=== PATIENT | male | born 1935 | race Caucasian/White ===

== ENCOUNTER 2016-10-21 06:39 | Inpatient (IN) | payer MEDICARE, BC ==
[2016-10-21] MEDS ORDERED: methylPREDNISolone Sodium Succinate 125 MG/2 ML SDV IVPUSH ONE (06:52)
[2016-10-21] MEDS ORDERED: Albuterol/Ipratropium 3.0-0.5 MG/3 ML Neb Soln NEB ONE (06:52)
[2016-10-21] MEDS ORDERED: Albuterol/Ipratropium 3.0-0.5 MG/3 ML Neb Soln ONE (06:56)
--- NOTE | 2016-10-21 07:25 | EDM.PDOC ---
ED HISTORY OF PRESENT ILLNESS - General Chief Complaint: Respiratory Problem Stated Complaint: SOB Time Seen by Provider: 10/21/16 07:14 Source of Information: Reports: Patient, RN notes reviewed - History of Present Illness INITIAL COMMENTS - FREE TEXT/NARRATIVE: 81-year-old gentleman comes in with severe shortness of breath. He does have history of chronic COPD, coronary artery disease, CHF and does use home oxygen 20 474 L nasal cannula. He awakened more short of breath than usual this morning about 2 hours ago. The sitting position this did not improve and therefore asked his to bring him into the ED. Does have a chronic cough occasionally productive of yellowish colored phlegm but not much any more than usual. He has had some recent chills but no definite fever. No chest pain other than the difficulty breathing. No abdominal pain nausea vomiting or diaphoresis. Due to his difficulty breathing and previous history of CHF exacerbations his states that she did give him triple his normal Lasix this morning, 60 mg and also double his Aldactone 50 mg this morning compared to the usual 20 and 25. This was all given about an hour ago. She had previously been directed to do this via provider when he is into his situation like this of severe difficulty breathing. - Related Data Allergies/ADRs: Allergies Allergy/AdvReac Type Severity Reaction Status Date / Time morphine Allergy Rash Verified 10/21/16 06:43 Home Meds: Home Meds Ascorbic Acid [Vitamin C] 500 mg PO DAILY 08/16/16 [History] Aspirin 81 mg PO BEDTIME 08/16/16 [History] Diflucan Oral 250 mcg PO DAILY PRN 08/16/16 [History] Digoxin [Lanoxin] 125 mcg PO DAILY 08/16/16 [History] Diltiazem [Cardizem CD] 120 mg PO BID 08/16/16 [History] Docusate Sodium 100 mg PO DAILY 08/16/16 [History] Flunisolide [Aerospan] 2 spray NASBOTH DAILY 08/16/16 [History] Fluticasone/Salmeterol [Advair 250-50 Diskus] 1 puff INH BID 08/16/16 [History] Folic Acid 0.8 mg PO DAILY 08/16/16 [History] Furosemide [Lasix] 20 mg PO BID 08/16/16 [History] Multivitamin [Multivitamins] 1 tab PO DAILY 08/16/16 [History] Nitroglycerin [Nitrostat] 0.4 mg SL Q5M PRN 08/16/16 [History] Omeprazole 20 mg PO DAILY 08/16/16 [History] Spironolactone [Aldactone] 25 mg PO DAILY 08/16/16 [History] guaiFENesin [Mucinex] 600 mg PO DAILY PRN 08/16/16 [History] predniSONE [Prednisone] 5 mg PO DAILY 08/16/16 [History] Albuterol/Ipratropium [DuoNeb 3.0-0.5 MG/3 ML] 3 ml NEB QIDRT #40 neb 09/03/16 [ Rx] Past Medical History HEENT History: Reports: Cataract Other HEENT History: 2015. Cardiovascular History: Reports: Afib, Hypertension, CT Other Cardiovascular History: COPD Respiratory History: Reports: COPD, Pneumonia, recurrent, SOB Other Respiratory History: Wears home O2 from 3L- 5L Gastrointestinal History: Reports: None, Other (see below) Other Gastrointestinal History: constipation at times and takes prune juice for this, history of abdominal anyerysm Genitourinary History: Reports: Retention, urinary Musculoskeletal History: Reports: Arthritis, Other (see below) Other Musculoskeletal History: started pt last week for left shoulder soreness. 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 4 stents and a carotid artery Respiratory Surgical History: Reports: None Male Surgical History: Reports: None Social & Family History - Family History HEENT: Reports: Glaucoma Cardiac: Reports: Hypertension, Other (see below) Other Cardiac Family History: strokes and heart attacks GI: Reports: Diverticulitis OBGYN: Reports: None Musculoskeletal: Reports: Arthritis Neurological: Reports: CVA Psychiatric: Reports: Depression Endocrine/Metabolic: Reports: Diabetes, type II Oncologic: Reports: Breast Other Oncologic Family History: mother - Tobacco Use Smoking Status *Q: Never Smoker Years of Tobacco use: 60 Packs/Tins Daily: 2 Used Tobacco, but Quit: Yes Month Tobacco Last Used: 60 years ago Second Hand Smoke Exposure: No - Caffeine Use Caffeine Use: Reports: Coffee Caffeine Use Comment: "cup or two of coffee a day" - Alcohol Use Days Per Week of Alcohol Use: 1 Number of Drinks Per Day: 3 Total Drinks Per Week: 3 - Recreational Drug Use Recreational Drug Use: No - Living Situation & Occupation Living situation: Reports: , with spouse 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 Denies: fever, diaphoresis HEENT: Denies: Rhinitis, Sinus problem, Throat pain, Throat swelling Respiratory: Reports: shortness of breath, wheezing, cough, sputum. Denies: pleuritic chest pain Cardiovascular: Reports: Lightheadedness. Denies: Chest pain Endocrine: Reports: fatigue GI/Abdominal: Denies: Abdominal pain, Nausea, Vomiting Musculoskeletal: Denies: shoulder pain, arm pain, leg pain Skin: Reports: no symptoms Neurological: Reports: dizziness, weakness (generalized). Denies: numbness, tingling ED EXAM, GENERAL - Physical Exam Exam: See Below General Appearance: alert, moderate distress Eye Exam: bilateral eye: PERRL Nose: normal inspection Throat/Mouth: Normal inspection, Normal oropharynx Head: atraumatic. No: facial swelling Neck: supple, full range of motion, other (no JVD) Respiratory/Chest: respiratory distress (moderate), rales (mild bilateral bases) Cardiovascular: irregularly irregular GI/Abdominal: soft, non tender Back Exam: normal inspection. No: CVA tenderness (L), CVA tenderness (R) Extremities: normal inspection. No: pedal edema, leg pain, redness Neurological: alert, oriented, no motor/sensory deficits Skin Exam: Warm, Dry. No: Rash EKG INTERPRETATION EKG Date: 10/21/16 Rhythm: a-fib QRS: normal ST-T: normal Course - Vital Signs Last Recorded V/S: Last Vital Signs Temp 97.3 F 10/21/16 06:44 Pulse 121 H 10/21/16 06:44 Resp 28 H 10/21/16 06:44 BP 135/77 10/21/16 06:44 Pulse Ox 90 L 10/21/16 07:46 - Orders/Labs/Meds Orders: Active Orders 24 hr Category Date Time Status Admission Status [Patient Status] [ADT] Routine ADT 10/21/16 08:39 Active EKG Documentation Completion [RC] STAT Care 10/21/16 06:53 Active RT Aerosol Therapy [RC] ASDIRECTED Care 10/21/16 06:52 Active RT Aerosol Therapy [RC] ASDIRECTED Care 10/21/16 07:26 Active Chest 1V Frontal [CR] Stat Exams 10/21/16 06:53 Taken CULTURE BLOOD [BC] Stat Lab 10/21/16 09:01 Received Levofloxacin/Dextrose 5%-Water [Levaquin in D5W 750 MG/ Med 10/21/16 08:28 Active 150 ML] 750 mg Premix Bag 1 bag IV ONETIME Medication Orders Levofloxacin/Dextrose 750 mg/ (Premix) 150 mls @ 100 mls/hr IV ONETIME ONE Stop: 10/21/16 09:57 Labs: Laboratory Tests 10/21/16 10/21/16 10/21/16 Range/Units 06:52 06:52 06:52 WBC 13.82 H (4.23-9.07) K/mm3 RBC 4.65 (4.63-6.08) M/mm3 Hgb 13.4 L (13.7-17.5) gm/L Hct 42.0 (40.1-51.0) % MCV 90.3 (79.0-92.2) fl MCH 28.8 (25.7-32.2) pg MCHC 31.9 L (32.2-35.5) g/dl RDW Std Deviation 47.9 H (35.1-43.9) fL Plt Count 310 (163-337) K/mm3 MPV 9.0 L (9.4-12.3) fl Neutrophils % (Manual) 74 H (40-60) % Band Neutrophils % 0 (0-10) % Lymphocytes % (Manual) 24 (20-40) % Atypical Lymphs % 0 % Monocytes % (Manual) 1 L (2-10) % Eosinophils % (Manual) 1 (0.8-7.0) % Basophils % (Manual) 0 L (0.2-1.2) Platelet Estimate Adequate RBC Morph Comment Normal PT 10.2 (8.0-13.0) SECONDS INR 0.96 APTT 26 (22-36) SECONDS Puncture Site ABG pH (7.35-7.45) ABG pCO2 (35.0-45.0) mmHg ABG pO2 (80.0-100.0) mmHg ABG HCO3 (22.0-26.0) meq/L ABG O2 Saturation (96.0-97.0) % ABG Base Excess (-2-2.0) Jamey Test A-a Gradient mmHg O2 Delivery Device Oxygen Flow Rate FiO2 (21.00-100.00) % Sodium 142 (136-145) mEq/L Potassium 3.9 (3.5-5.1) mEq/L Chloride 103 (98-107) mEq/L Carbon Dioxide 27 (21-32) mEq/L Anion Gap 15.9 H (5-15) BUN 19 H (7-18) mg/dL Creatinine 1.4 H (0.7-1.3) mg/dL Est Cr Clr Drug Dosing 35.68 mL/min Estimated GFR (MDRD) 49 (>60) mL/min BUN/Creatinine Ratio 13.6 L (14-18) Glucose 141 H (83-115) mg/dL Calcium 9.4 (8.5-10.1) mg/dL Total Bilirubin 0.6 (0.2-1.0) mg/dL AST 27 (15-37) U/L ALT 23 (16-63) U/L Alkaline Phosphatase 74 (46-116) U/L Troponin I 0.050 (0.00-0.056) ng/mL B-Natriuretic Peptide (0-100) pg/mL Total Protein 7.4 (6.4-8.2) g/dl Albumin 3.1 L (3.4-5.0) g/dl Globulin 4.3 gm/dL Albumin/Globulin Ratio 0.7 L (1-2) Digoxin 0.9 (0.9-2.0) ng/mL 10/21/16 10/21/16 Range/Units 06:52 06:53 WBC (4.23-9.07) K/mm3 RBC (4.63-6.08) M/mm3 Hgb (13.7-17.5) gm/L Hct (40.1-51.0) % MCV (79.0-92.2) fl MCH (25.7-32.2) pg MCHC (32.2-35.5) g/dl RDW Std Deviation (35.1-43.9) fL Plt Count (163-337) K/mm3 MPV (9.4-12.3) fl Neutrophils % (Manual) (40-60) % Band Neutrophils % (0-10) % Lymphocytes % (Manual) (20-40) % Atypical Lymphs % % Monocytes % (Manual) (2-10) % Eosinophils % (Manual) (0.8-7.0) % Basophils % (Manual) (0.2-1.2) Platelet Estimate RBC Morph Comment PT (8.0-13.0) SECONDS INR APTT (22-36) SECONDS Puncture Site Rt radial ABG pH 7.44 (7.35-7.45) ABG pCO2 38.6 (35.0-45.0) mmHg ABG pO2 50.0 L (80.0-100.0) mmHg ABG HCO3 25.7 (22.0-26.0) meq/L ABG O2 Saturation 86.9 L (96.0-97.0) % ABG Base Excess 2.0 (-2-2.0) Jamey Test Positive A-a Gradient 198 mmHg O2 Delivery Device Nasal cannula Oxygen Flow Rate 6.0 FiO2 44.00 (21.00-100.00) % Sodium (136-145) mEq/L Potassium (3.5-5.1) mEq/L Chloride (98-107) mEq/L Carbon Dioxide (21-32) mEq/L Anion Gap (5-15) BUN (7-18) mg/dL Creatinine (0.7-1.3) mg/dL Est Cr Clr Drug Dosing mL/min Estimated GFR (MDRD) (>60) mL/min BUN/Creatinine Ratio (14-18) Glucose (83-115) mg/dL Calcium (8.5-10.1) mg/dL Total Bilirubin (0.2-1.0) mg/dL AST (15-37) U/L ALT (16-63) U/L Alkaline Phosphatase (46-116) U/L Troponin I (0.00-0.056) ng/mL B-Natriuretic Peptide 450 H (0-100) pg/mL Total Protein (6.4-8.2) g/dl Albumin (3.4-5.0) g/dl Globulin gm/dL Albumin/Globulin Ratio (1-2) Digoxin (0.9-2.0) ng/mL Meds: Medications Generic Name Dose Route Start Last Admin Trade Name Freq PRN Reason Stop Dose Admin Levofloxacin/Dextrose 750 mg/ 150 mls @ 100 mls/hr 10/21/16 08:28 Premix IV 10/21/16 09:57 ONETIME ONE Discontinued Medications Generic Name Dose Route Start Last Admin Trade Name Freq PRN Reason Stop Dose Admin Albuterol 2.5 mg 10/21/16 07:26 10/21/16 07:46 Proventil Neb Soln NEB 10/21/16 07:27 2.5 mg ONETIME ONE Administration Albuterol/Ipratropium 3 ml 10/21/16 06:52 10/21/16 06:59 Duoneb 3.0-0.5 Mg/3 Ml NEB 10/21/16 06:53 3 ml ONETIME ONE Administration Albuterol/Ipratropium Confirm 10/21/16 06:56 10/21/16 07:00 Duoneb 3.0-0.5 Mg/3 Ml Administered 10/21/16 06:57 Not Given Dose 3 ml .ROUTE .STK-MED ONE Methylprednisolone Sodium Succinate 125 mg 10/21/16 06:52 10/21/16 06:57 Solu-Medrol IVPUSH 10/21/16 06:53 125 mg ONETIME ONE Administration - Radiology Interpretation Free Text/Narrative:: 08:10. patient was briefly seen by Dr. Loco staying right at the end of his shift prior to my arrival. at the time that I see him at 07:00 he is on 15 L nonrebreather. Sats are running about 92-93%. We turned that down to 6 L nasal cannula. ABGs partially show that he is not retaining. However PO2 is only 50 at the 6 L NC. He is moving air better from arrival, but still tachypneic sitting head and chest elevated. Sats are running anywhere from 85 to about 89 with O2 still at 6 L nasal cannula. on his chest x-ray there are chronic interstitial changes. Chest x-ray to me looked slightly worse from prior chest x -ray, he may have a slight early infiltrate left base. I will see how radiology reads that out. I am going to get a blood culture x1 even though he is afebrile. For now admitting diagnosis will be exacerbation COPD, Levaquin has been ordered 750 mg IV. Departure - Departure Time of Disposition: 08:35 Disposition: Admitted As Inpatient 68 Condition: serious Clinical Impression: COPD exacerbation Forms: ED Department Discharge ED Communication - Discussed Case With (1) Discussed Case With (1): Other (Dr Newell, decision to admit at about 08:35) - My Orders Last 24 Hours: My Active Orders 10/21/16 07:26 RT Aerosol Therapy [RC] ASDIRECTED 10/21/16 08:28 Levofloxacin/Dextrose 5%-Water [Levaquin in D5W 750 MG/150 ML] 750 mg Premix Bag 1 bag IV ONETIME 10/21/16 08:39 Admission Status [Patient Status] [ADT] Routine 10/21/16 09:01 CULTURE BLOOD [BC] Stat - Assessment/Plan Last 24 Hours: My Active Orders 10/21/16 07:26 RT Aerosol Therapy [RC] ASDIRECTED 10/21/16 08:28 Levofloxacin/Dextrose 5%-Water [Levaquin in D5W 750 MG/150 ML] 750 mg Premix Bag 1 bag IV ONETIME 10/21/16 08:39 Admission Status [Patient Status] [ADT] Routine 10/21/16 09:01 CULTURE BLOOD [BC] Stat
[2016-10-21] MEDS ORDERED: Albuterol 0.083% 2.5 MG/3 ML Neb Soln NEB ONE (07:26)
[2016-10-21] MEDS ORDERED: Levofloxacin/Dextrose 5%-Water 750 MG in Premix Bag 1 BAG IV ONE (08:28)
--- NOTE | 2016-10-21 10:01 | CR ---
Chest: Portable view of the chest was obtained. Comparison: Previous chest x-ray of 10/02/16. Diffuse interstitial changes are seen throughout both lungs. Findings appear slightly more prominent than on prior exam. Heart is enlarged. Tortuous thoracic aorta is seen. Sternotomy is noted. Chronic rotator cuff tear noted within the left shoulder. Impression: 1. Increasing interstitial change from prior study. This may represent increased pulmonary vascular congestion superimposed upon fibrosis as well as infectious bronchitis superimposed upon fibrosis. 2. Other portions of the chest are stable as described above. Diagnostic code #3
[2016-10-21] MEDS ORDERED: Ondansetron 4 MG Tab.DIS PO PRN (14:46)
[2016-10-21] MEDS ORDERED: Ondansetron 4 MG/2 ML SDV IV PRN (14:46)
[2016-10-21] MEDS ORDERED: Acetaminophen 325 MG Tab PO PRN (14:46)
[2016-10-21] MEDS ORDERED: Polyethylene Glycol 3350 Powder 17 GM Packet PO PRN (14:55)
[2016-10-21] MEDS ORDERED: Albuterol 0.083% 2.5 MG/3 ML Neb Soln NEB PRN (14:55)
[2016-10-21] MEDS ORDERED: Sodium Chloride 0.9% 10 ML Syringe FLUSH PRN (14:55)
[2016-10-21] MEDS ORDERED: Bisacodyl 5 MG Tab PO PRN (14:55)
[2016-10-21] MEDS ORDERED: Temazepam 15 MG Cap PO PRN (14:55)
[2016-10-21] MEDS ORDERED: Docusate Sodium 100 MG Cap PO PRN (14:55)
[2016-10-21] MEDS ORDERED: DIFLUCAN PO PRN (15:03)
--- NOTE | 2016-10-21 15:10 | PCM.HP ---
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 He does have PMH hx of steroid and oxygen dependent COPD, CHF, CAD. He was last admitted in August 2016 for acute COPD exacerbation. He reports that the past 5-7 days he has had "a head cold" and worsening fatigue. Appetite is good, he has had mild headaches off an on due to congestion. He is coughing, occasional productive sputum, clear to yellow in color. He reports oxygen saturation at home at lowest was 59% on his home pulse ox machine, his then brought him into ER. He tried taking an extra dose of lasix at home when his SOB awoke him in the electric razor mechanic hours, around 0430. SOB progressed to the point that he was essentially in respiratory distress on arrival to ED. Onset of Symptoms: Reports: sudden Symptom Onset Time: 04:30 (awoke from sleep with acute onset of SOB) Location: Reports: chest Associated Symptoms: Reports: cough, cough w sputum, headaches, malaise, shortness of breath, weakness - Related Data Allergies/Adverse Reactions: Allergies Allergy/AdvReac Type Severity Reaction Status Date / Time morphine Allergy Rash Verified 10/21/16 06:43 Home Medications: Home Meds Ascorbic Acid [Vitamin C] 500 mg PO DAILY 08/16/16 [History] Aspirin 81 mg PO BEDTIME 08/16/16 [History] Diflucan Oral 250 mcg PO DAILY PRN 08/16/16 [History] Digoxin [Lanoxin] 125 mcg PO DAILY 08/16/16 [History] Diltiazem [Cardizem CD] 120 mg PO BID 08/16/16 [History] Flunisolide [Aerospan] 2 spray NASBOTH DAILY 08/16/16 [History] Fluticasone/Salmeterol [Advair 250-50 Diskus] 1 puff INH BID 08/16/16 [History] Folic Acid 0.8 mg PO DAILY 08/16/16 [History] Furosemide [Lasix] 20 mg PO BID 08/16/16 [History] Multivitamin [Multivitamins] 1 tab PO DAILY 08/16/16 [History] Nitroglycerin [Nitrostat] 0.4 mg SL Q5M PRN 08/16/16 [History] Omeprazole 20 mg PO DAILY 08/16/16 [History] Spironolactone [Aldactone] 25 mg PO DAILY 08/16/16 [History] guaiFENesin [Mucinex] 600 mg PO DAILY PRN 08/16/16 [History] predniSONE [Prednisone] 5 mg PO DAILY 08/16/16 [History] Albuterol/Ipratropium [DuoNeb 3.0-0.5 MG/3 ML] 3 ml NEB QIDRT #40 neb 09/03/16 [ Rx] Docusate Sodium [Colace] 100 mg PO BID #60 cap 10/26/16 [Rx] Ferrous Sulfate 325 mg PO WITHBREAKFAST #30 tablet 10/26/16 [Rx] Prednisone [IJD: Prednisone] 10 mg PO DAILY #30 tab 10/26/16 [Rx] Past Medical History HEENT History: Reports: Cataract Other HEENT History: 2015. Cardiovascular History: Reports: Afib, Arrhythmia, Bypass, CAD, Heart Failure, Hypertension, MO, SOB on exertion Other Cardiovascular History: COPD Respiratory History: Reports: COPD, Pneumonia, recurrent, Pulmonary fibrosis, SOB Other Respiratory History: Wears home O2 from 3L- 5L Gastrointestinal History: Reports: None, Other (see below) Other Gastrointestinal History: constipation at times and takes prune juice for this, history of abdominal anyerysm Genitourinary History: Reports: Retention, urinary Musculoskeletal History: Reports: Arthritis, Back pain, chronic, Other (see below) Other Musculoskeletal History: started pt last week for left shoulder soreness. 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 4 stents and a carotid artery Respiratory Surgical History: Reports: None Male Surgical History: Reports: None Social & Family History - Family History HEENT: Reports: Glaucoma Cardiac: Reports: Hypertension, Other (see below) Other Cardiac Family History: strokes and heart attacks GI: Reports: Diverticulitis OBGYN: Reports: None Musculoskeletal: Reports: Arthritis Neurological: Reports: CVA Psychiatric: Reports: Depression Endocrine/Metabolic: Reports: Diabetes, type II Oncologic: Reports: Breast Other Oncologic Family History: mother - Tobacco Use Smoking Status *Q: Former Smoker Years of Tobacco use: 60 Packs/Tins Daily: 2 Used Tobacco, but Quit: Yes Month Tobacco Last Used: 60 years ago Second Hand Smoke Exposure: No - Caffeine Use Caffeine Use: Reports: Coffee Caffeine Use Comment: "cup or two of coffee a day" - Alcohol Use Days Per Week of Alcohol Use: 1 Number of Drinks Per Day: 3 Total Drinks Per Week: 3 - Recreational Drug Use Recreational Drug Use: No - Living Situation & Occupation Living situation: Reports: , with spouse 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 Denies: hemoptysis Cardiovascular: Reports: chest pain, palpitations, dyspnea on exertion, lightheadedness Gastrointestinal: Reports: No symptoms Genitourinary: Reports: no symptoms Musculoskeletal: Reports: no symptoms Skin: Reports: no symptoms Psychiatric: Reports: no symptoms Neurological: Reports: no symptoms Exam - Exam Exam: See Below - Vital Signs Vital Signs: Last Vital Signs Temp 99.0 F 10/21/16 09:52 Pulse 121 H 10/21/16 06:44 Resp 20 10/21/16 09:52 BP 135/77 10/21/16 06:44 Pulse Ox 92 L 10/21/16 10:39 Weight: 59.012 kg - Exam Quality Assessment: supplemental oxygen General: alert, oriented, cooperative, mild distress HEENT: Conjunctiva clear, EACs clear, EOMI, Hearing intact, Mucosa moist & pink , Pupils equal, Pupils reactive Neck: supple, trachea midline Lungs: Normal respiratory effort, Decreased breath sounds (throughout), Rhonchi (throughout), Wheezing (throughout) Cardiovascular: regular rate, regular rhythm, other (distant heart tones) Abdomen: normal bowel sounds, soft. No: organomegaly, distention, guarding, rigidity, rebound, tenderness (Male) Exam: Deferred Rectal (Males) Exam: Deferred Back Exam: normal inspection Extremities: normal inspection. No: clubbing, calf tenderness, edema Peripheral Pulses: 1+: dorsalis pedis (L), dorsalis pedis (R) Skin: warm, dry, intact Neurological: cranial nerves intact, reflexes equal bilateral Neuro Extensive - Mental Status: alert, oriented x3, normal mood/affect, normal cognition, memory intact Psychiatric: alert, normal affect, normal mood - Patient Data Result Diagrams: 10/22/16 04:46 10/22/16 04:46 *Q Meaningful Use (ADM) - VTE *Q VTE Criteria *Q: - Stroke *Q Stroke Criteria *Q: - AMI *Q AMI Criteria *Q: - Problem List (1) Acute respiratory failure with hypoxia SNOMED Code(s): 77279304, 718330313 ICD Code: J96.01 - ACUTE RESPIRATORY FAILURE WITH HYPOXIA Status: Acute Priority: High (2) COPD exacerbation SNOMED Code(s): 529028918, 152823303 ICD Code: J44.1 - CHRONIC OBSTRUCTIVE PULMONARY DISEASE W (ACUTE) EXACERBATION Status: Acute Priority: High (3) Mycoplasma infection SNOMED Code(s): 705199239 ICD Code: A49.3 - MYCOPLASMA INFECTION, UNSPECIFIED SITE Status: Acute Priority: High (4) HTN (hypertension) SNOMED Code(s): 84077429 ICD Code: I10 - ESSENTIAL (PRIMARY) HYPERTENSION Status: Chronic Priority : High Qualifiers: Hypertension type: essential hypertension Qualified Code(s): I10 - Essential (primary) hypertension Problem List Initiated/Reviewed/Updated: Yes Orders Last 24hrs: Active Orders 24 hr Category Date Time Status Patient Status [ADT] Routine ADT 10/21/16 14:36 Ordered Ambulate [RC] DAILY Care 10/21/16 14:46 Ordered Cardiac Monitoring [RC] CONTINUOUS Care 10/21/16 14:49 Ordered Height and Weight [RC] DAILY Care 10/21/16 14:46 Ordered Intake and Output [RC] QSHIFT Care 10/21/16 14:49 Ordered May Shower [RC] ASDIRECTED Care 10/21/16 14:46 Ordered Oxygen Therapy [RC] PRN Care 10/21/16 14:36 Ordered RT Aerosol Therapy [RC] ASDIRECTED Care 10/21/16 14:58 Ordered Up With Assistance [RC] ASDIRECTED Care 10/21/16 14:46 Ordered VTE/DVT Education [RC] PER UNIT ROUTINE Care 10/21/16 14:36 Ordered Vital Signs [RC] Q4H Care 10/21/16 14:36 Ordered Consult to Case Management [CONS] Routine Cons 10/21/16 15:00 Ordered Consult to Investigator Operator [CONS] Routine Cons 10/21/16 15:00 Ordered OT Evaluation and Treatment [CONS] Routine Cons 10/21/16 15:00 Ordered PT Evaluation and Treatment [CONS] Routine Cons 10/21/16 15:00 Ordered 2 Gram Sodium Diet [DIET] Diet 10/21/16 Lunch Ordered BASIC METABOLIC PANEL,BMP [CHEM] DAILY Lab 10/22/16 05:00 Ordered BASIC METABOLIC PANEL,BMP [CHEM] DAILY Lab 10/23/16 05:00 Ordered BASIC METABOLIC PANEL,BMP [CHEM] DAILY Lab 10/24/16 05:00 Ordered BASIC METABOLIC PANEL,BMP [CHEM] DAILY Lab 10/25/16 05:00 Ordered BASIC METABOLIC PANEL,BMP [CHEM] DAILY Lab 10/26/16 05:00 Ordered C-REACTIVE PROTEIN [CHEM] DAILY Lab 10/22/16 05:00 Ordered C-REACTIVE PROTEIN [CHEM] DAILY Lab 10/23/16 05:00 Ordered C-REACTIVE PROTEIN [CHEM] DAILY Lab 10/24/16 05:00 Ordered C-REACTIVE PROTEIN [CHEM] DAILY Lab 10/25/16 05:00 Ordered CBC WITH AUTO DIFF [HEME] DAILY Lab 10/22/16 05:00 Ordered CBC WITH AUTO DIFF [HEME] DAILY Lab 10/23/16 05:00 Ordered CBC WITH AUTO DIFF [HEME] DAILY Lab 10/24/16 05:00 Ordered CBC WITH AUTO DIFF [HEME] DAILY Lab 10/25/16 05:00 Ordered MAGNESIUM [CHEM] DAILY Lab 10/22/16 05:00 Ordered MAGNESIUM [CHEM] DAILY Lab 10/23/16 05:00 Ordered MAGNESIUM [CHEM] DAILY Lab 10/24/16 05:00 Ordered MAGNESIUM [CHEM] DAILY Lab 10/25/16 05:00 Ordered Acetaminophen [Tylenol] Med 10/21/16 14:46 Ordered 650 mg PO Q4H PRN Albuterol [Proventil Neb Soln] Med 10/21/16 14:55 Ordered 2.5 mg NEB Q2H PRN Albuterol/Ipratropium [DuoNeb 3.0-0.5 MG/3 ML] Med 10/21/16 15:00 Ordered 3 ml NEB Q4H Ascorbic Acid [Vitamin C] Med 10/22/16 09:00 Ordered 500 mg PO DAILY Aspirin Med 10/21/16 21:00 Ordered 81 mg PO BEDTIME Azithromycin [Zithromax] 500 mg Med 10/21/16 15:15 Ordered Sodium Chloride 0.9% [Normal Saline] 250 ml IV Q24H Bisacodyl [Dulcolax] Med 10/21/16 14:55 Ordered 5 mg PO DAILY PRN Diflucan Oral Med 10/21/16 15:03 Ordered 250 mcg PO DAILY PRN Digoxin [Lanoxin] Med 10/22/16 09:00 Ordered 125 mcg PO DAILY Diltiazem [Cardizem CD] Med 10/21/16 21:00 Ordered 120 mg PO BID Docusate Sodium [Colace] Med 10/21/16 14:55 Ordered 100 mg PO BID PRN Docusate Sodium [Colace] Med 10/22/16 09:00 Ordered 100 mg PO DAILY Flunisolide [Aerospan] Med 10/22/16 09:00 Ordered 2 spray NASBOTH DAILY Flunisolide [Nasalide Nasal [place]] Med 10/21/16 21:00 Ordered 2 ml NASBOTH BID Fluticasone/Salmeterol [Advair Diskus 250-50] Med 10/21/16 21:00 Ordered 1 puff INH BID Folic Acid [Folic Acid] Med 10/22/16 09:00 Ordered 0.8 mg PO DAILY Furosemide [Lasix] Med 10/21/16 21:00 Ordered 20 mg PO BID Multivitamin [Multivitamins] Med 10/22/16 09:00 Ordered 1 tab PO DAILY Omeprazole Med 10/22/16 09:00 Ordered 20 mg PO DAILY Ondansetron [Zofran ODT] Med 10/21/16 14:46 Ordered 4 mg PO Q4H PRN Ondansetron [Zofran] Med 10/21/16 14:46 Ordered 4 mg IV Q4H PRN Polyethylene Glycol 3350 [MiraLAX] Med 10/21/16 14:55 Ordered 17 gm PO DAILY PRN Sodium Chloride 0.9% [Saline Flush] Med 10/21/16 14:55 Ordered 10 ml FLUSH ASDIRECTED PRN Spironolactone [Aldactone] Med 10/22/16 09:00 Ordered 25 mg PO DAILY Temazepam [Restoril] Med 10/21/16 14:55 Ordered 15 mg PO BEDTIME PRN guaiFENesin [Mucinex] Med 10/21/16 21:00 Ordered 600 mg PO TID methylPREDNISolone Sod Succ [Solu-MEDROL] Med 10/21/16 15:15 Ordered 125 mg IV Q12H Saline Lock Insert [OM.PC] Routine Oth 10/21/16 14:46 Ordered Resuscitation Status Routine Resus Stat 10/21/16 14:36 Ordered Medication Orders Acetaminophen (Tylenol) 650 mg PO Q4H PRN PRN Reason: Pain (Mild 1-3)/fever Albuterol (Proventil Neb Soln) 2.5 mg NEB Q2H PRN PRN Reason: Shortness Of Breath/wheezing Albuterol/Ipratropium (Duoneb 3.0-0.5 Mg/3 Ml) 3 ml NEB Q4H [facility] Aspirin (Aspirin) 81 mg PO BEDTIME [facility] Bisacodyl (Dulcolax) 5 mg PO DAILY PRN PRN Reason: Constipation Digoxin (Lanoxin) 125 mcg PO DAILY [facility] Diltiazem HCl (Cardizem Cd) 120 mg PO BID [facility] Docusate Sodium (Colace) 100 mg PO BID PRN PRN Reason: Constipation Docusate Sodium (Colace) 100 mg PO DAILY [facility] Flunisolide (Nasalide Nasal [place]) 2 ml NASBOTH BID [facility] Furosemide (Lasix) 20 mg PO BID [facility] Guaifenesin (Mucinex) 600 mg PO TID [facility] Azithromycin 500 mg/ Sodium (Chloride) 250 mls @ 250 mls/hr IV Q24H [facility] Non-Formulary Medication (Ascorbic Acid [Vitamin C]) 500 mg PO DAILY [facility] Non-Formulary Medication (Diflucan Oral) 250 mcg PO DAILY PRN PRN Reason: yeast Non-Formulary Medication (Flunisolide [Aerospan]) 2 spray NASBOTH DAILY [facility] Non-Formulary Medication (Folic Acid [Folic Acid]) 0.8 mg PO DAILY [facility] Non-Formulary Medication (Multivitamin [Multivitamins]) 1 tab PO DAILY [facility] Non-Formulary Medication (Omeprazole) 20 mg PO DAILY [facility] Ondansetron HCl (Zofran Odt) 4 mg PO Q4H PRN PRN Reason: nausea, able to take PO Ondansetron HCl (Zofran) 4 mg IV Q4H PRN PRN Reason: Nausea/Vomiting Polyethylene Glycol (Miralax) 17 gm PO DAILY PRN PRN Reason: Constipation Fluticasone/Salmeterol (Advair Diskus 250-50) 1 puff INH BID [facility] Sodium Chloride (Saline Flush) 10 ml FLUSH ASDIRECTED PRN PRN Reason: Keep Vein Open Spironolactone (Aldactone) 25 mg PO DAILY [facility] Temazepam (Restoril) 15 mg PO BEDTIME PRN PRN Reason: Sleep Assessment/Plan Comment:: Acute hypoxic respiratory failure -Supplemental oxygen -IV solumedrol -Nebs, RT, aggressive pulmonary toilet -CXR in ED with bronchitis changes; no acute pneumonia at this time. COPD exacerbation -As above -Chronic steroid and oxygen dependent -Cont usual home meds -Zithromax IV for antiinflammatory effect - Mycoplasma and influenza screening Chronic: HTN- cont home meds Hx of CHF and afib- cont home meds- ASA/BB/diuretic/CCB Other: GI Prophylax DVT prophylax PT/OT Code status: DNR/DNI <Olinda Cazares - Last Filed: 10/27/16 20:15> H&P History of Present Illness - General Admit Problem/Dx: Admission Diagnosis/Problem Admission Diagnosis/Problem COPD, Severe chronic obstructive pulmonary disease Exam - Vital Signs Vital Signs: Last Vital Signs Temp 36.6 C 10/26/16 09:56 Pulse 95 10/26/16 11:11 Resp 19 10/26/16 09:56 BP 127/65 10/26/16 09:56 Pulse Ox 94 L 10/26/16 11:11 - Patient Data Lab Results last 24 hrs: Laboratory Results - last 24 hr 10/22/16 Range/Units 10:10 Packed Cell Volume 32.8 RBC Folic Acid >1890 H (499-1504) ng/mL Hematocrit 32.8 % Result Diagrams: 10/26/16 06:16 10/26/16 06:16 Julian Results last 24 hrs: Microbiology 10/21/16 09:01 Aerobic Blood Culture - Preliminary Blood NO GROWTH AFTER 6 DAYS Anaerobic Blood Culture - Preliminary NO GROWTH AFTER 6 DAYS *Q Meaningful Use (ADM) - VTE *Q VTE Criteria *Q: - Stroke *Q Stroke Criteria *Q: - AMI *Q AMI Criteria *Q: Assessment/Plan Comment:: COPD exacerbation, screening for underlying causes as above.
[2016-10-21] MEDS: Albuterol/Ipratropium 3.0-0.5 MG/3 ML Neb Soln NEB SCH ×3 (15:36→23:29)
[2016-10-21] MEDS: Azithromycin 500 MG in Sodium Chloride 0.9% 250 ML IV SCH (15:49)
[2016-10-21] MEDS: methylPREDNISolone Sodium Succinate 125 MG/2 ML SDV IV SCH (15:50)
[2016-10-21] MEDS: guaiFENesin 600 MG Tab.ER PO SCH (20:47)
[2016-10-21] MEDS: Diltiazem 120 MG Cap.CD PO SCH (20:47)
[2016-10-21] MEDS: Aspirin 81 MG Tab.Chew PO SCH (20:47)
[2016-10-21] MEDS: Furosemide 20 MG Tab PO SCH (20:47)
[2016-10-21] MEDS: Formoterol/Mometasone 200-5 MCG 8.8 GM Inhaler IH SCH (21:00)
[2016-10-22] MEDS: Albuterol/Ipratropium 3.0-0.5 MG/3 ML Neb Soln NEB SCH ×3 (03:25→10:57)
[2016-10-22] MEDS: methylPREDNISolone Sodium Succinate 125 MG/2 ML SDV IV SCH ×2 (03:35→15:30)
[2016-10-22] MEDS: Spironolactone 25 MG Tab PO SCH (08:46)
[2016-10-22] MEDS: Furosemide 20 MG Tab PO SCH ×2 (08:47→21:16)
[2016-10-22] MEDS: Diltiazem 120 MG Cap.CD PO SCH ×2 (08:47→21:16)
[2016-10-22] MEDS: Folic Acid 1 MG Tab PO SCH (08:48)
[2016-10-22] MEDS: Multivitamins,Therapeutic Tab PO SCH (08:48)
[2016-10-22] MEDS: Pantoprazole 40 MG Tab.CR PO SCH (08:48)
[2016-10-22] MEDS: guaiFENesin 600 MG Tab.ER PO SCH ×3 (08:48→21:16)
[2016-10-22] MEDS: Docusate Sodium 100 MG Cap PO SCH (08:48)
[2016-10-22] MEDS: Ascorbic Acid 500 MG Tab PO SCH (08:48)
[2016-10-22] MEDS: Formoterol/Mometasone 200-5 MCG 8.8 GM Inhaler IH SCH ×2 (08:52→21:02)
[2016-10-22] MEDS ORDERED: FLUNISOLIDE NASBOTH SCH (09:00)
[2016-10-22] MEDS ORDERED: Metoprolol Tartrate 5 MG/5 ML SDV IVPUSH PRN (10:28)
[2016-10-22] MEDS ORDERED: Metoprolol Tartrate 5 MG/5 ML SDV ONE (10:32)
[2016-10-22] MEDS: Digoxin 250 MCG Tab PO SCH (12:12)
--- NOTE | 2016-10-22 13:50 | PCM.PN ---
- General Info Date of Service: 10/22/16 Admission Dx/Problem (Free Text): Admission Diagnosis/Problem Admission Diagnosis/Problem COPD, Severe chronic obstructive pulmonary disease Moshe is seen this morning. Resting comfortably. states feels more SOB again today than yesterday afternoon. He continues to cough, more SOB with activity. Slept "OK" last night. Good appetite, no n/v/d. Functional Status: Reports: pain controlled, tolerating diet, ambulating, urinating. Denies: new symptoms - Review of Systems General: Reports: weakness, fatigue HEENT: Reports: no symptoms Pulmonary: Reports: shortness of breath, cough, sputum, wheezing Cardiovascular: Reports: no symptoms Gastrointestinal: Reports: No symptoms Genitourinary: Reports: no symptoms Musculoskeletal: Reports: no symptoms Skin: Reports: no symptoms Neurological: Reports: no symptoms Psychiatric: Reports: no symptoms - Patient Data Vitals - most recent: Last Vital Signs Temp 98.2 F 10/22/16 12:14 Pulse 65 10/22/16 12:14 Resp 24 H 10/22/16 12:14 BP 108/54 L 10/22/16 12:14 Pulse Ox 100 10/22/16 12:14 Weight - most recent: 128 lb 11.188 oz I&O - last 24 hours: Intake & Output 10/21/16 10/22/16 10/22/16 22:59 06:59 14:59 Intake Total 410 200 57 Output Total 351 325 Balance 59 -125 57 Lab Results last 24 hrs: Laboratory Results - last 24 hr 10/22/16 10/22/16 10/22/16 Range/Units 04:46 04:46 09:45 WBC 8.90 (4.23-9.07) K/mm3 RBC 3.67 L (4.63-6.08) M/mm3 Hgb 10.5 L (13.7-17.5) gm/L Hct 32.8 L (40.1-51.0) % MCV 89.4 (79.0-92.2) fl MCH 28.6 (25.7-32.2) pg MCHC 32.0 L (32.2-35.5) g/dl RDW Std Deviation 46.1 H (35.1-43.9) fL Plt Count 242 (163-337) K/mm3 MPV 9.2 L (9.4-12.3) fl Neut % (Auto) 89.7 H (34.0-67.9) % Lymph % (Auto) 8.4 L (21.8-53.1) % Power % (Auto) 1.5 L (5.3-12.2) % Eos % (Auto) 0 L (0.8-7.0) Baso % (Auto) 0.1 (0.1-1.2) % Neut # 7.98 H (1.78-5.38) K/mm3 Lymph # 0.75 L (1.32-3.57) K/mm3 Power # 0.13 L (0.30-0.82) K/mm3 Eos # 0.00 L (0.04-0.54) K/mm3 Baso # 0.01 (0.01-0.08) K/mm3 Manual Slide Review Abnormal smear Sodium 138 (136-145) mEq/L Potassium 3.6 (3.5-5.1) mEq/L Chloride 101 (98-107) mEq/L Carbon Dioxide 25 (21-32) mEq/L Anion Gap 15.6 H (5-15) BUN 29 H (7-18) mg/dL Creatinine 1.4 H (0.7-1.3) mg/dL Est Cr Clr Drug Dosing 35.33 mL/min Estimated GFR (MDRD) 49 (>60) mL/min BUN/Creatinine Ratio 20.7 H (14-18) Glucose 174 H (83-115) mg/dL Calcium 8.6 (8.5-10.1) mg/dL Magnesium 2.1 (1.8-2.4) mg/dl Iron 38 L (65-175) ug/dL TIBC 190 (100-400) ug/dL % Saturation 20 (20-55) % Transferrin 152 L (202-364) mg/dL C-Reactive Protein 4.5 H* (<1.0) mg/dL Vitamin B12 780 (193-986) pg/ml Julian Results last 24 hrs: Microbiology 10/22/16 10:43 Influenza Type A Antigen Screen - Final Nasal, Left NEGATIVE INFLUENZA A VIRUS AG Influenza Type B Antigen Screen - Final NEGATIVE INFLUENZA B VIRUS AG 10/21/16 09:01 Aerobic Blood Culture - Preliminary Blood NO GROWTH AFTER 1 DAY Anaerobic Blood Culture - Preliminary NO GROWTH AFTER 1 DAY Med Orders - Current: Current Medications Acetaminophen (Tylenol) 650 mg PO Q4H PRN PRN Reason: Pain (Mild 1-3)/fever Ascorbic Acid (Vitamin C) 500 mg PO DAILY [facility] Last Admin: 10/22/16 08:48 Dose: 500 mg Aspirin (Aspirin) 81 mg PO BEDTIME [facility] Last Admin: 10/21/16 20:47 Dose: 81 mg Bisacodyl (Dulcolax) 5 mg PO DAILY PRN PRN Reason: Constipation Digoxin (Lanoxin) 125 mcg PO WITHLUNCH [facility] Last Admin: 10/22/16 12:12 Dose: 125 mcg Diltiazem HCl (Cardizem Cd) 120 mg PO BID [facility] Last Admin: 10/22/16 08:47 Dose: 120 mg Docusate Sodium (Colace) 100 mg PO BID PRN PRN Reason: Constipation Docusate Sodium (Colace) 100 mg PO DAILY [facility] Last Admin: 10/22/16 08:48 Dose: 100 mg Enoxaparin Sodium (Lovenox) 30 mg SUBCUT DAILY [facility] Flunisolide (Nasalide Nasal [place]) 2 ml NASBOTH BID [facility] Last Admin: 10/22/16 08:48 Dose: 2 spray Folic Acid (Folic Acid) 1 mg PO DAILY [facility] Last Admin: 10/22/16 08:48 Dose: 1 mg Furosemide (Lasix) 20 mg PO BID [facility] Last Admin: 10/22/16 08:47 Dose: 20 mg Guaifenesin (Mucinex) 600 mg PO TID [facility] Last Admin: 10/22/16 08:48 Dose: 600 mg Azithromycin 500 mg/ Sodium (Chloride) 250 mls @ 250 mls/hr IV Q24H [facility] Last Admin: 10/21/16 15:49 Dose: 250 mls/hr Levalbuterol HCl (Xopenex) 1.25 mg NEB Q4HRRT [facility] Methylprednisolone Sodium Succinate (Solu-Medrol) 125 mg IV Q12H [facility] Last Admin: 10/22/16 03:35 Dose: 125 mg Metoprolol Tartrate (Lopressor) 5 mg IVPUSH Q4H PRN PRN Reason: heart rate >130 Last Admin: 10/22/16 10:35 Dose: 5 mg Mometasone Furoate/Formoterol Fumar (Dulera 200-5 Mcg) 2 puff IH BID [facility] Last Admin: 10/22/16 08:52 Dose: 2 puff Multivitamins (Thera) 1 each PO DAILY [facility] Last Admin: 10/22/16 08:48 Dose: 1 each Ondansetron HCl (Zofran Odt) 4 mg PO Q4H PRN PRN Reason: nausea, able to take PO Ondansetron HCl (Zofran) 4 mg IV Q4H PRN PRN Reason: Nausea/Vomiting Pantoprazole Sodium (Protonix) 40 mg PO DAILY [facility] Last Admin: 10/22/16 08:48 Dose: 40 mg Polyethylene Glycol (Miralax) 17 gm PO DAILY PRN PRN Reason: Constipation Sodium Chloride (Saline Flush) 10 ml FLUSH ASDIRECTED PRN PRN Reason: Keep Vein Open Spironolactone (Aldactone) 25 mg PO DAILY [facility] Last Admin: 10/22/16 08:46 Dose: 25 mg Temazepam (Restoril) 15 mg PO BEDTIME PRN PRN Reason: Sleep Last Admin: 10/22/16 00:06 Dose: 15 mg Discontinued Medications Albuterol (Proventil Neb Soln) 2.5 mg NEB ONETIME ONE Stop: 10/21/16 07:27 Last Admin: 10/21/16 07:46 Dose: 2.5 mg Albuterol (Proventil Neb Soln) 2.5 mg NEB Q2H PRN PRN Reason: Shortness Of Breath/wheezing Albuterol/Ipratropium (Duoneb 3.0-0.5 Mg/3 Ml) 3 ml NEB ONETIME ONE Stop: 10/21/16 06:53 Last Admin: 10/21/16 06:59 Dose: 3 ml Albuterol/Ipratropium (Duoneb 3.0-0.5 Mg/3 Ml) Confirm Administered Dose 3 ml .ROUTE .STK-MED ONE Stop: 10/21/16 06:57 Last Admin: 10/21/16 07:00 Dose: Not Given Albuterol/Ipratropium (Duoneb 3.0-0.5 Mg/3 Ml) 3 ml NEB Q4H [facility] Last Admin: 10/22/16 10:57 Dose: 3 ml Levofloxacin/Dextrose 750 mg/ (Premix) 150 mls @ 100 mls/hr IV ONETIME ONE Stop: 10/21/16 09:57 Last Admin: 10/21/16 09:08 Dose: 100 mls/hr Methylprednisolone Sodium Succinate (Solu-Medrol) 125 mg IVPUSH ONETIME ONE Stop: 10/21/16 06:53 Last Admin: 10/21/16 06:57 Dose: 125 mg Metoprolol Tartrate (Lopressor) Confirm Administered Dose 5 mg .ROUTE .STK-MED ONE Stop: 10/22/16 10:33 Last Admin: 10/22/16 10:40 Dose: Not Given Non-Formulary Medication (Diflucan Oral) 250 mcg PO DAILY PRN PRN Reason: yeast Non-Formulary Medication (Flunisolide [Aerospan]) 2 spray NASBOTH DAILY [facility] - Exam Quality Assessment: supplemental oxygen, DVT prophylaxis General: alert, oriented, cooperative HEENT: Pupils equal, Pupils reactive, EOMI, Mucous membr. moist/pink Neck: supple Lungs: Normal respiratory effort, Decreased breath sounds, Rhonchi (scattered; improved from yesterday), Wheezing (throughout but improved from yesterday) Cardiovascular: regular rate, regular rhythm, other (distant heart tones) Abdomen: bowel sounds present, soft, no tenderness, no distension (Male) Exam: Deferred Back Exam: normal inspection Extremities: no edema, no calf tenderness Peripheral Pulses: 1+: dorsalis pedis (L), dorsalis pedis (R) Skin: warm, dry, intact Neurological: no new focal deficit Psy/Mental Status: alert, normal affect, normal mood - Problem List & Annotations (1) Mycoplasma infection SNOMED Code(s): 286192967 Code(s): A49.3 - MYCOPLASMA INFECTION, UNSPECIFIED SITE Status: Acute Priority: High Current Visit: Yes (2) COPD exacerbation SNOMED Code(s): 842015598, 327923059 Code(s): J44.1 - CHRONIC OBSTRUCTIVE PULMONARY DISEASE W (ACUTE) EXACERBATION Status: Acute Priority: High Current Visit: Yes (3) Acute respiratory failure with hypoxia SNOMED Code(s): 67230817, 065026918 Code(s): J96.01 - ACUTE RESPIRATORY FAILURE WITH HYPOXIA Status: Acute Priority: High Current Visit: Yes - Problem List Review Problem List Initiated/Reviewed/Updated: Yes - My Orders Last 24 Hours: My Active Orders 10/21/16 14:36 Patient Status [ADT] Routine Oxygen Therapy [RC] PRN VTE/DVT Education [RC] 10,22 Vital Signs [RC] Q4HR Resuscitation Status Routine 10/21/16 14:46 Ambulate [RC] DAILY Height and Weight [RC] 04 December Shower [RC] ASDIRECTED Up With Assistance [RC] ASDIRECTED Acetaminophen [Tylenol] 650 mg PO Q4H PRN Ondansetron [Zofran ODT] 4 mg PO Q4H PRN Ondansetron [Zofran] 4 mg IV Q4H PRN Saline Lock Insert [OM.PC] Routine 10/21/16 14:49 Cardiac Monitoring [RC] CONTINUOUS Intake and Output [RC] ,10/21/16 14:55 Albuterol [Proventil Neb Soln] 2.5 mg NEB Q2H PRN Bisacodyl [Dulcolax] 5 mg PO DAILY PRN Docusate Sodium [Colace] 100 mg PO BID PRN Polyethylene Glycol 3350 [MiraLAX] 17 gm PO DAILY PRN Sodium Chloride 0.9% [Saline Flush] 10 ml FLUSH ASDIRECTED PRN Temazepam [Restoril] 15 mg PO BEDTIME PRN 10/21/16 14:58 RT Aerosol Therapy [RC] ASDIRECTED 10/21/16 15:00 Consult to Case Management [CONS] Routine Consult to [employer] [CONS] Routine OT Evaluation and Treatment [CONS] Routine PT Evaluation and Treatment [CONS] Routine 10/21/16 15:15 methylPREDNISolone Sod Succ [Solu-MEDROL] 125 mg IV Q12H 10/21/16 15:30 Azithromycin [Zithromax] 500 mg Sodium Chloride 0.9% [Normal Saline] 250 ml IV Q24H 10/21/16 21:00 Aspirin 81 mg PO BEDTIME Diltiazem [Cardizem CD] 120 mg PO BID Flunisolide [Nasalide Nasal [place]] 2 ml NASBOTH BID Furosemide [Lasix] 20 mg PO BID Mometasone/Formoterol [Dulera 200-5 MCG] 2 puff IH BID guaiFENesin [Mucinex] 600 mg PO TID 10/22/16 09:00 Ascorbic Acid [Vitamin C] 500 mg PO DAILY Docusate Sodium [Colace] 100 mg PO DAILY Folic Acid 1 mg PO DAILY Multivitamins,Therapeutic [Thera] 1 each PO DAILY Pantoprazole [Protonix] 40 mg PO DAILY Spironolactone [Aldactone] 25 mg PO DAILY 10/22/16 10:10 FOLATE, RBC [REF] Routine 10/22/16 10:28 Metoprolol Tartrate [Lopressor] 5 mg IVPUSH Q4H PRN 10/22/16 11:00 Digoxin [Lanoxin] 125 mcg PO WITHLUNCH 10/22/16 13:38 RT Aerosol Therapy [RC] ASDIRECTED 10/22/16 13:45 Enoxaparin [Lovenox] 30 mg SUBCUT DAILY Levalbuterol HCl [Xopenex] 1.25 mg NEB Q4HRRT 10/23/16 05:00 BASIC METABOLIC PANEL,BMP [CHEM] DAILY C-REACTIVE PROTEIN [CHEM] DAILY CBC WITH AUTO DIFF [HEME] DAILY MAGNESIUM [CHEM] DAILY 10/23/16 05:11 Chest 2V [CR] AM 10/24/16 05:00 BASIC METABOLIC PANEL,BMP [CHEM] DAILY C-REACTIVE PROTEIN [CHEM] DAILY CBC WITH AUTO DIFF [HEME] DAILY MAGNESIUM [CHEM] DAILY 10/25/16 05:00 BASIC METABOLIC PANEL,BMP [CHEM] DAILY C-REACTIVE PROTEIN [CHEM] DAILY CBC WITH AUTO DIFF [HEME] DAILY MAGNESIUM [CHEM] DAILY 10/26/16 05:00 BASIC METABOLIC PANEL,BMP [CHEM] DAILY 10/26/16 07:00 CBC W/O DIFF,HEMOGRAM [HEME] MOTH@0700 10/29/16 07:00 CBC W/O DIFF,HEMOGRAM [HEME] MOTH@0700 11/02/16 07:00 CBC W/O DIFF,HEMOGRAM [HEME] MOTH@0700 11/05/16 07:00 CBC W/O DIFF,HEMOGRAM [HEME] MOTH@0700 11/09/16 07:00 CBC W/O DIFF,HEMOGRAM [HEME] MOTH@0700 11/12/16 07:00 CBC W/O DIFF,HEMOGRAM [HEME] MOTH@0700 - Plan Plan:: Acute hypoxic respiratory failure -Supplemental oxygen -IV solumedrol -Nebs, RT, aggressive pulmonary toilet COPD exacerbation -As above -Chronic steroid and oxygen dependent -Cont usual home meds -Zithromax IV for antiinflammatory effect -Mycoplasma + this morning--continue zithromax -Influenza screen negative Chronic: HTN- cont home meds Hx of CHF and afib- cont home meds- ASA/BB/diuretic/CCB Other: GI Prophylax DVT prophylax PT/OT Code status: DNR/DNI Likely DC in next 24-48 hours
[2016-10-22] MEDS: Levalbuterol HCl 1.25 MG/3 ML Neb NEB SCH ×3 (14:14→21:02)
[2016-10-22] MEDS: cefTRIAXone 1 GM in Sodium Chloride 0.9% 100 ML IV SCH (15:29)
[2016-10-22] MEDS: Enoxaparin 40 MG/0.4 ML Syringe SUBCUT SCH (15:30)
[2016-10-22] MEDS: Azithromycin 500 MG in Sodium Chloride 0.9% 250 ML IV SCH (16:12)
[2016-10-22] MEDS: Aspirin 81 MG Tab.Chew PO SCH (21:16)
[2016-10-23] MEDS: Levalbuterol HCl 1.25 MG/3 ML Neb NEB SCH ×5 (02:36→20:34)
[2016-10-23] MEDS: methylPREDNISolone Sodium Succinate 125 MG/2 ML SDV IV SCH ×2 (02:59→14:50)
[2016-10-23] MEDS: Ferrous Sulfate 325 MG Tab PO SCH (07:18)
--- NOTE | 2016-10-23 08:46 | CR ---
Chest: Two views of the chest were obtained. Comparison: Previous chest x-ray 10/21/16. Stable interstitial change is seen within both lungs. Heart is mildly enlarged. Tortuous thoracic aorta is seen. Previous sternotomy noted. Bony structures are unremarkable for the patient's age. Impression: 1. Interstitial change remains stable in appearance from previous chest x-ray. 2. Other findings are also stable. Diagnostic code #3
[2016-10-23] MEDS: Multivitamins,Therapeutic Tab PO SCH (09:06)
[2016-10-23] MEDS: Pantoprazole 40 MG Tab.CR PO SCH (09:06)
[2016-10-23] MEDS: guaiFENesin 600 MG Tab.ER PO SCH ×4 (09:06→22:58)
[2016-10-23] MEDS: Diltiazem 120 MG Cap.CD PO SCH ×3 (09:06→22:56)
[2016-10-23] MEDS: Ascorbic Acid 500 MG Tab PO SCH (09:07)
[2016-10-23] MEDS: Docusate Sodium 100 MG Cap PO SCH (09:07)
[2016-10-23] MEDS: Furosemide 20 MG Tab PO SCH ×3 (09:07→22:57)
[2016-10-23] MEDS: Folic Acid 1 MG Tab PO SCH (09:07)
[2016-10-23] MEDS: Spironolactone 25 MG Tab PO SCH (09:07)
[2016-10-23] MEDS: Enoxaparin 40 MG/0.4 ML Syringe SUBCUT SCH (09:07)
[2016-10-23] MEDS: Digoxin 250 MCG Tab PO SCH (10:25)
[2016-10-23] MEDS: Formoterol/Mometasone 200-5 MCG 8.8 GM Inhaler IH SCH ×2 (10:51→20:34)
--- NOTE | 2016-10-23 11:54 | PCM.PN ---
<Kristen Solano M - Last Filed: 10/23/16 11:48> - General Info Date of Service: 10/23/16 Admission Dx/Problem (Free Text): Admission Diagnosis/Problem Admission Diagnosis/Problem COPD, Severe chronic obstructive pulmonary disease Moshe is seen today; resting comfortably. Doing fairly well today. Still SOB, worse with activity, on 4L/NC now. Dry hacky cough now, nonproductive today. Functional Status: Reports: pain controlled, tolerating diet, ambulating, urinating. Denies: new symptoms - Review of Systems General: Reports: no symptoms HEENT: Reports: no symptoms Pulmonary: Reports: shortness of breath, cough, wheezing (much improved). Denies: sputum Cardiovascular: Reports: no symptoms Gastrointestinal: Reports: No symptoms Genitourinary: Reports: no symptoms Musculoskeletal: Reports: no symptoms Skin: Reports: no symptoms Neurological: Reports: no symptoms Psychiatric: Reports: no symptoms - Patient Data Vitals - most recent: Last Vital Signs Temp 99.0 F 10/23/16 07:55 Pulse 68 10/23/16 10:25 Resp 20 10/23/16 07:55 BP 143/75 H 10/23/16 09:06 Pulse Ox 95 10/23/16 10:52 Weight - most recent: 60.963 kg I&O - last 24 hours: Intake & Output 10/22/16 10/23/16 10/23/16 22:59 06:59 14:59 Intake Total 2445 200 330 Output Total 475 570 Balance 1970 -370 330 Lab Results last 24 hrs: Laboratory Results - last 24 hr 10/23/16 10/23/16 Range/Units 04:50 04:50 WBC 14.48 H (4.23-9.07) K/mm3 RBC 3.57 L (4.63-6.08) M/mm3 Hgb 10.3 L (13.7-17.5) gm/L Hct 32.2 L (40.1-51.0) % MCV 90.2 (79.0-92.2) fl MCH 28.9 (25.7-32.2) pg MCHC 32.0 L (32.2-35.5) g/dl RDW Std Deviation 46.7 H (35.1-43.9) fL Plt Count 261 (163-337) K/mm3 MPV 9.5 (9.4-12.3) fl Neut % (Auto) 94.0 H (34.0-67.9) % Lymph % (Auto) 3.4 L (21.8-53.1) % [place] % (Auto) 2.2 L (5.3-12.2) % Eos % (Auto) 0 L (0.8-7.0) Baso % (Auto) 0.1 (0.1-1.2) % Neut # 13.62 H (1.78-5.38) K/mm3 Lymph # 0.49 L (1.32-3.57) K/mm3 [place] # 0.32 (0.30-0.82) K/mm3 Eos # 0.00 L (0.04-0.54) K/mm3 Baso # 0.01 (0.01-0.08) K/mm3 Manual Slide Review Abnormal smear Sodium 138 (136-145) mEq/L Potassium 4.0 (3.5-5.1) mEq/L Chloride 100 (98-107) mEq/L Carbon Dioxide 23 (21-32) mEq/L Anion Gap 19.0 H (5-15) BUN 45 H (7-18) mg/dL Creatinine 1.7 H (0.7-1.3) mg/dL Est Cr Clr Drug Dosing 30.38 mL/min Estimated GFR (MDRD) 39 (>60) mL/min BUN/Creatinine Ratio 26.5 H (14-18) Glucose 218 H (83-115) mg/dL Calcium 8.7 (8.5-10.1) mg/dL Magnesium 2.4 (1.8-2.4) mg/dl C-Reactive Protein 1.9 H* (<1.0) mg/dL Julian Results last 24 hrs: Microbiology 10/21/16 09:01 Aerobic Blood Culture - Preliminary Blood NO GROWTH AFTER 2 DAYS Anaerobic Blood Culture - Preliminary NO GROWTH AFTER 2 DAYS 10/22/16 10:43 Influenza Type A Antigen Screen - Final Nasal, Left NEGATIVE INFLUENZA A VIRUS AG Influenza Type B Antigen Screen - Final NEGATIVE INFLUENZA B VIRUS AG Med Orders - Current: Current Medications Acetaminophen (Tylenol) 650 mg PO Q4H PRN PRN Reason: Pain (Mild 1-3)/fever Ascorbic Acid (Vitamin C) 500 mg PO DAILY ESTIVEN Last Admin: 10/23/16 09:07 Dose: 500 mg Aspirin (Aspirin) 81 mg PO BEDTIME [facility] Last Admin: 10/22/16 21:16 Dose: 81 mg Bisacodyl (Dulcolax) 5 mg PO DAILY PRN PRN Reason: Constipation Last Admin: 10/23/16 07:18 Dose: 5 mg Digoxin (Lanoxin) 125 mcg PO WITHLUNCH [facility] Last Admin: 10/23/16 10:25 Dose: 125 mcg Diltiazem HCl (Cardizem Cd) 120 mg PO BID [facility] Last Admin: 10/23/16 09:06 Dose: 120 mg Docusate Sodium (Colace) 100 mg PO BID PRN PRN Reason: Constipation Last Admin: 10/23/16 07:18 Dose: 100 mg Docusate Sodium (Colace) 100 mg PO DAILY [facility] Last Admin: 10/23/16 09:07 Dose: 100 mg Enoxaparin Sodium (Lovenox) 40 mg SUBCUT DAILY [facility] Last Admin: 10/23/16 09:07 Dose: 40 mg Ferrous Sulfate (Ferrous Sulfate) 325 mg PO WITHBREAKFAST [facility] Last Admin: 10/23/16 07:18 Dose: 325 mg Flunisolide (Nasalide Nasal [place]) 2 ml NASBOTH BID [facility] Last Admin: 10/23/16 09:06 Dose: 2 spray Folic Acid (Folic Acid) 1 mg PO DAILY [facility] Last Admin: 10/23/16 09:07 Dose: 1 mg Furosemide (Lasix) 20 mg PO BID [facility] Last Admin: 10/23/16 09:07 Dose: 20 mg Guaifenesin (Mucinex) 600 mg PO TID [facility] Last Admin: 10/23/16 09:06 Dose: 600 mg Azithromycin 500 mg/ Sodium (Chloride) 250 mls @ 250 mls/hr IV Q24H [facility] Last Admin: 10/22/16 16:12 Dose: 250 mls/hr Ceftriaxone Sodium 1 gm/ (Sodium Chloride) 100 mls @ 200 mls/hr IV Q24H [facility] Last Admin: 10/22/16 15:29 Dose: 200 mls/hr Levalbuterol HCl (Xopenex) 1.25 mg NEB Q4H [facility] Last Admin: 10/23/16 10:51 Dose: 1.25 mg Methylprednisolone Sodium Succinate (Solu-Medrol) 125 mg IV Q12H [facility] Last Admin: 10/23/16 02:59 Dose: 125 mg Metoprolol Tartrate (Lopressor) 5 mg IVPUSH Q4H PRN PRN Reason: heart rate >130 Last Admin: 10/22/16 10:35 Dose: 5 mg Mometasone Furoate/Formoterol Fumar (Dulera 200-5 Mcg) 2 puff IH BID [facility] Last Admin: 10/23/16 10:51 Dose: 2 puff Multivitamins (Thera) 1 each PO DAILY [facility] Last Admin: 10/23/16 09:06 Dose: 1 each Ondansetron HCl (Zofran Odt) 4 mg PO Q4H PRN PRN Reason: nausea, able to take PO Ondansetron HCl (Zofran) 4 mg IV Q4H PRN PRN Reason: Nausea/Vomiting Pantoprazole Sodium (Protonix) 40 mg PO DAILY [facility] Last Admin: 10/23/16 09:06 Dose: 40 mg Polyethylene Glycol (Miralax) 17 gm PO DAILY PRN PRN Reason: Constipation Sodium Chloride (Saline Flush) 10 ml FLUSH ASDIRECTED PRN PRN Reason: Keep Vein Open Spironolactone (Aldactone) 25 mg PO DAILY [facility] Last Admin: 10/23/16 09:07 Dose: 25 mg Temazepam (Restoril) 15 mg PO BEDTIME PRN PRN Reason: Sleep Last Admin: 10/22/16 00:06 Dose: 15 mg Discontinued Medications Albuterol (Proventil Neb Soln) 2.5 mg NEB ONETIME ONE Stop: 10/21/16 07:27 Last Admin: 10/21/16 07:46 Dose: 2.5 mg Albuterol (Proventil Neb Soln) 2.5 mg NEB Q2H PRN PRN Reason: Shortness Of Breath/wheezing Albuterol/Ipratropium (Duoneb 3.0-0.5 Mg/3 Ml) 3 ml NEB ONETIME ONE Stop: 10/21/16 06:53 Last Admin: 10/21/16 06:59 Dose: 3 ml Albuterol/Ipratropium (Duoneb 3.0-0.5 Mg/3 Ml) Confirm Administered Dose 3 ml .ROUTE .STK-MED ONE Stop: 10/21/16 06:57 Last Admin: 10/21/16 07:00 Dose: Not Given Albuterol/Ipratropium (Duoneb 3.0-0.5 Mg/3 Ml) 3 ml NEB Q4H ESTIVEN Last Admin: 10/22/16 10:57 Dose: 3 ml Levofloxacin/Dextrose 750 mg/ (Premix) 150 mls @ 100 mls/hr IV ONETIME ONE Stop: 10/21/16 09:57 Last Admin: 10/21/16 09:08 Dose: 100 mls/hr Methylprednisolone Sodium Succinate (Solu-Medrol) 125 mg IVPUSH ONETIME ONE Stop: 10/21/16 06:53 Last Admin: 10/21/16 06:57 Dose: 125 mg Metoprolol Tartrate (Lopressor) Confirm Administered Dose 5 mg .ROUTE .STK-MED ONE Stop: 10/22/16 10:33 Last Admin: 10/22/16 10:40 Dose: Not Given Non-Formulary Medication (Diflucan Oral) 250 mcg PO DAILY PRN PRN Reason: yeast Non-Formulary Medication (Flunisolide [Aerospan]) 2 spray NASBOTH DAILY ESTIVEN - Exam Quality Assessment: DVT prophylaxis General: alert, oriented, cooperative, no acute distress HEENT: Pupils equal, Pupils reactive, EOMI, Mucous membr. moist/pink Neck: supple Lungs: Decreased breath sounds, Rhonchi (minimal), Wheezing Cardiovascular: regular rate, regular rhythm Abdomen: bowel sounds present, soft, no tenderness (Male) Exam: Deferred Extremities: no edema Peripheral Pulses: 1+: dorsalis pedis (L), dorsalis pedis (R) Skin: warm, dry Neurological: no new focal deficit Psy/Mental Status: alert, normal affect, normal mood - Problem List & Annotations (1) Acute respiratory failure with hypoxia SNOMED Code(s): 91736584, 187207189 Code(s): J96.01 - ACUTE RESPIRATORY FAILURE WITH HYPOXIA Status: Acute Priority: High (2) COPD exacerbation SNOMED Code(s): 684827497, 506707465 Code(s): J44.1 - CHRONIC OBSTRUCTIVE PULMONARY DISEASE W (ACUTE) EXACERBATION Status: Acute Priority: High (3) Mycoplasma infection SNOMED Code(s): 526710196 Code(s): A49.3 - MYCOPLASMA INFECTION, UNSPECIFIED SITE Status: Acute Priority: High (4) HTN (hypertension) SNOMED Code(s): 00300297 Code(s): I10 - ESSENTIAL (PRIMARY) HYPERTENSION Status: Chronic Priority : High Qualifiers: Hypertension type: essential hypertension Qualified Code(s): I10 - Essential (primary) hypertension - Problem List Review Problem List Initiated/Reviewed/Updated: Yes - My Orders Last 24 Hours: My Active Orders 10/22/16 11:00 Digoxin [Lanoxin] 125 mcg PO WITHLUNCH 10/22/16 13:38 RT Aerosol Therapy [RC] ASDIRECTED 10/22/16 13:45 Enoxaparin [Lovenox] 40 mg SUBCUT DAILY Levalbuterol HCl [Xopenex] 1.25 mg NEB Q4H 10/22/16 14:19 Hemoccult [OCCULT BLOOD DIAGNOSTIC] [OP] Routine 10/22/16 15:00 cefTRIAXone [Rocephin] 1 gm Sodium Chloride 0.9% [Normal Saline] 100 ml IV Q24H 10/23/16 07:00 Ferrous Sulfate 325 mg PO WITHBREAKFAST 10/24/16 05:00 BASIC METABOLIC PANEL,BMP [CHEM] DAILY C-REACTIVE PROTEIN [CHEM] DAILY CBC WITH AUTO DIFF [HEME] DAILY MAGNESIUM [CHEM] DAILY 10/25/16 05:00 BASIC METABOLIC PANEL,BMP [CHEM] DAILY C-REACTIVE PROTEIN [CHEM] DAILY CBC WITH AUTO DIFF [HEME] DAILY MAGNESIUM [CHEM] DAILY 10/26/16 05:00 BASIC METABOLIC PANEL,BMP [CHEM] DAILY 10/26/16 07:00 CBC W/O DIFF,HEMOGRAM [HEME] MOTH@0700 10/29/16 07:00 CBC W/O DIFF,HEMOGRAM [HEME] MOTH@0711/02/16 07:00 CBC W/O DIFF,HEMOGRAM [HEME] MOTH@0700 11/05/16 07:00 CBC W/O DIFF,HEMOGRAM [HEME] MOTH@00 11/09/16 07:00 CBC W/O DIFF,HEMOGRAM [HEME] MOTH@0700 11/12/16 07:00 CBC W/O DIFF,HEMOGRAM [HEME] MOTH@0700 - Plan Plan:: Acute hypoxic respiratory failure -Supplemental oxygen -IV solumedrol, will start taper today- to 80mg Q12 hrs -Nebs, RT, aggressive pulmonary toilet -CXR in ED with bronchitis changes; Repeat CXR today is unchanged- no evidence of infiltrates/consolidation COPD exacerbation -As above -Chronic steroid and oxygen dependent -Cont usual home meds -Zithromax IV for antiinflammatory effect - Mycoplasma positive-- zithromax as above, added rocephin Chronic: HTN- cont home meds Hx of CHF and afib- cont home meds- ASA/BB/diuretic/CCB Other: GI Prophylax DVT prophylax PT/OT Code status: DNR/DNI Clinically improving, PT recommends outpatient PT at this time. Likely dc in next 48 hours. <Olinda Cazares - Last Filed: 10/27/16 20:16> - Patient Data Vitals - most recent: Last Vital Signs Temp 36.6 C 10/26/16 09:56 Pulse 95 10/26/16 11:11 Resp 19 10/26/16 09:56 BP 127/65 10/26/16 09:56 Pulse Ox 94 L 10/26/16 11:11 Lab Results last 24 hrs: Laboratory Results - last 24 hr 10/22/16 Range/Units 10:10 Packed Cell Volume 32.8 RBC Folic Acid >1890 H (499-1504) ng/mL Hematocrit 32.8 % Julian Results last 24 hrs: Microbiology 10/21/16 09:01 Aerobic Blood Culture - Preliminary Blood NO GROWTH AFTER 6 DAYS Anaerobic Blood Culture - Preliminary NO GROWTH AFTER 6 DAYS Med Orders - Current: Current Medications Discontinued Medications Acetaminophen (Tylenol) 650 mg PO Q4H PRN PRN Reason: Pain (Mild 1-3)/fever Albuterol (Proventil Neb Soln) 2.5 mg NEB ONETIME ONE Stop: 10/21/16 07:27 Last Admin: 10/21/16 07:46 Dose: 2.5 mg Albuterol (Proventil Neb Soln) 2.5 mg NEB Q2H PRN PRN Reason: Shortness Of Breath/wheezing Albuterol/Ipratropium (Duoneb 3.0-0.5 Mg/3 Ml) 3 ml NEB ONETIME ONE Stop: 10/21/16 06:53 Last Admin: 10/21/16 06:59 Dose: 3 ml Albuterol/Ipratropium (Duoneb 3.0-0.5 Mg/3 Ml) Confirm Administered Dose 3 ml .ROUTE .STK-MED ONE Stop: 10/21/16 06:57 Last Admin: 10/21/16 07:00 Dose: Not Given Albuterol/Ipratropium (Duoneb 3.0-0.5 Mg/3 Ml) 3 ml NEB Q4H [facility] Last Admin: 10/22/16 10:57 Dose: 3 ml Ascorbic Acid (Vitamin C) 500 mg PO DAILY [facility] Last Admin: 10/26/16 09:54 Dose: 500 mg Aspirin (Aspirin) 81 mg PO BEDTIME [facility] Last Admin: 10/25/16 21:52 Dose: 81 mg Bisacodyl (Dulcolax) 5 mg PO DAILY PRN PRN Reason: Constipation Last Admin: 10/23/16 07:18 Dose: 5 mg Digoxin (Lanoxin) 125 mcg PO WITHLUNCH [facility] Last Admin: 10/26/16 11:06 Dose: 125 mcg Diltiazem HCl (Cardizem Cd) 120 mg PO BID [facility] Last Admin: 10/26/16 09:54 Dose: 120 mg Docusate Sodium (Colace) 100 mg PO BID PRN PRN Reason: Constipation Last Admin: 10/23/16 07:18 Dose: 100 mg Docusate Sodium (Colace) 100 mg PO DAILY [facility] Last Admin: 10/26/16 09:54 Dose: 100 mg Enoxaparin Sodium (Lovenox) 40 mg SUBCUT DAILY [facility] Last Admin: 10/26/16 09:52 Dose: 40 mg Ferrous Sulfate (Ferrous Sulfate) 325 mg PO WITHBREAKFAST [facility] Last Admin: 10/26/16 07:41 Dose: 325 mg Flunisolide (Nasalide Nasal [place]) 2 ml NASBOTH BID [facility] Last Admin: 10/26/16 11:04 Dose: 2 spray Folic Acid (Folic Acid) 1 mg PO DAILY [facility] Last Admin: 10/26/16 09:54 Dose: 1 mg Furosemide (Lasix) 20 mg PO BID [facility] Last Admin: 10/25/16 21:51 Dose: 20 mg Furosemide (Lasix) 20 mg PO BIDDIURETIC [facility] Last Admin: 10/26/16 14:38 Dose: 20 mg Furosemide (Lasix) 20 mg IVPUSH NOW ONE Stop: 10/26/16 07:03 Last Admin: 10/26/16 07:41 Dose: 20 mg Guaifenesin (Mucinex) 600 mg PO TID [facility] Last Admin: 10/26/16 09:54 Dose: 600 mg Levofloxacin/Dextrose 750 mg/ (Premix) 150 mls @ 100 mls/hr IV ONETIME ONE Stop: 10/21/16 09:57 Last Admin: 10/21/16 09:08 Dose: 100 mls/hr Azithromycin 500 mg/ Sodium (Chloride) 250 mls @ 250 mls/hr IV Q24H [facility] Last Admin: 10/25/16 15:53 Dose: 250 mls/hr Ceftriaxone Sodium 1 gm/ (Sodium Chloride) 100 mls @ 200 mls/hr IV Q24H [facility] Last Admin: 10/25/16 15:21 Dose: 200 mls/hr Levalbuterol HCl (Xopenex) 1.25 mg NEB Q4H [facility] Last Admin: 10/23/16 14:04 Dose: 1.25 mg Levalbuterol HCl (Xopenex) 1.25 mg NEB Q6HRRT [facility] Levalbuterol HCl (Xopenex) 1.25 mg NEB QID [facility] Last Admin: 10/24/16 16:33 Dose: 1.25 mg Levalbuterol HCl (Xopenex) 1.25 mg NEB QIDRT [facility] Last Admin: 10/25/16 06:28 Dose: 1.25 mg Levalbuterol HCl (Xopenex) 1.25 mg NEB QIDRT [facility] Last Admin: 10/26/16 09:25 Dose: 1.25 mg Levalbuterol HCl (Xopenex) 1.25 mg NEB QIDRT [facility] Methylprednisolone Sodium Succinate (Solu-Medrol) 125 mg IVPUSH ONETIME ONE Stop: 10/21/16 06:53 Last Admin: 10/21/16 06:57 Dose: 125 mg Methylprednisolone Sodium Succinate (Solu-Medrol) 125 mg IV Q12H [facility] Last Admin: 10/23/16 02:59 Dose: 125 mg Methylprednisolone Sodium Succinate (Solu-Medrol) 80 mg IV Q12H [facility] Last Admin: 10/26/16 04:01 Dose: 80 mg Metoprolol Tartrate (Lopressor) 5 mg IVPUSH Q4H PRN PRN Reason: heart rate >130 Last Admin: 10/22/16 10:35 Dose: 5 mg Metoprolol Tartrate (Lopressor) Confirm Administered Dose 5 mg .ROUTE .STK-MED ONE Stop: 10/22/16 10:33 Last Admin: 10/22/16 10:40 Dose: Not Given Mometasone Furoate/Formoterol Fumar (Dulera 200-5 Mcg) 2 puff IH BID [facility] Last Admin: 10/26/16 09:26 Dose: 2 puff Multivitamins (Thera) 1 each PO DAILY [facility] Last Admin: 10/26/16 09:53 Dose: 1 each Non-Formulary Medication (Diflucan Oral) 250 mcg PO DAILY PRN PRN Reason: yeast Non-Formulary Medication (Flunisolide [Aerospan]) 2 spray NASBOTH DAILY [facility] Ondansetron HCl (Zofran Odt) 4 mg PO Q4H PRN PRN Reason: nausea, able to take PO Ondansetron HCl (Zofran) 4 mg IV Q4H PRN PRN Reason: Nausea/Vomiting Pantoprazole Sodium (Protonix) 40 mg PO DAILY [facility] Last Admin: 10/26/16 09:54 Dose: 40 mg Polyethylene Glycol (Miralax) 17 gm PO DAILY PRN PRN Reason: Constipation Sodium Chloride (Saline Flush) 10 ml FLUSH ASDIRECTED PRN PRN Reason: Keep Vein Open Spironolactone (Aldactone) 25 mg PO DAILY [facility] Last Admin: 10/26/16 09:54 Dose: 25 mg Temazepam (Restoril) 15 mg PO BEDTIME PRN PRN Reason: Sleep Last Admin: 10/22/16 00:06 Dose: 15 mg - Plan Plan:: Improvement as noted, see above; will continue current course.
[2016-10-23] MEDS ORDERED: methylPREDNISolone Sodium Succinate 125 MG/2 ML SDV IV SCH (12:48)
[2016-10-23] MEDS: Azithromycin 500 MG in Sodium Chloride 0.9% 250 ML IV SCH (14:50)
[2016-10-23] MEDS: cefTRIAXone 1 GM in Sodium Chloride 0.9% 100 ML IV SCH (14:51)
[2016-10-23] MEDS ORDERED: Levalbuterol HCl 1.25 MG/3 ML Neb NEB SCH (18:00)
[2016-10-23] MEDS: Aspirin 81 MG Tab.Chew PO SCH ×2 (19:39→22:56)
[2016-10-24] MEDS: methylPREDNISolone Sodium Succinate 125 MG/2 ML SDV IV SCH ×2 (04:08→14:38)
[2016-10-24] MEDS: Ferrous Sulfate 325 MG Tab PO SCH (06:24)
[2016-10-24] MEDS: Formoterol/Mometasone 200-5 MCG 8.8 GM Inhaler IH SCH ×2 (08:13→21:29)
[2016-10-24] MEDS: Levalbuterol HCl 1.25 MG/3 ML Neb NEB SCH ×4 (08:13→21:29)
[2016-10-24] MEDS: Ascorbic Acid 500 MG Tab PO SCH (08:38)
[2016-10-24] MEDS: guaiFENesin 600 MG Tab.ER PO SCH ×4 (08:38→20:44)
[2016-10-24] MEDS: Furosemide 20 MG Tab PO SCH ×3 (08:38→20:44)
[2016-10-24] MEDS: Diltiazem 120 MG Cap.CD PO SCH ×3 (08:39→20:43)
[2016-10-24] MEDS: Multivitamins,Therapeutic Tab PO SCH (08:39)
[2016-10-24] MEDS: Docusate Sodium 100 MG Cap PO SCH (08:39)
[2016-10-24] MEDS: Pantoprazole 40 MG Tab.CR PO SCH (08:39)
[2016-10-24] MEDS: Spironolactone 25 MG Tab PO SCH (08:40)
[2016-10-24] MEDS: Enoxaparin 40 MG/0.4 ML Syringe SUBCUT SCH (08:41)
[2016-10-24] MEDS: Folic Acid 1 MG Tab PO SCH (08:42)
[2016-10-24] MEDS: Digoxin 250 MCG Tab PO SCH (11:12)
[2016-10-24] MEDS: cefTRIAXone 1 GM in Sodium Chloride 0.9% 100 ML IV SCH (14:41)
[2016-10-24] MEDS: Azithromycin 500 MG in Sodium Chloride 0.9% 250 ML IV SCH (14:50)
--- NOTE | 2016-10-24 17:28 | PCM.PN ---
- General Info Date of Service: 10/24/16 (dc LIKELY AFTER 96 HOURS FOR TX) Functional Status: Reports: tolerating diet, ambulating, urinating - Review of Systems General: Reports: weakness (decreased) HEENT: Reports: no symptoms Pulmonary: Reports: shortness of breath Cardiovascular: Reports: no symptoms Gastrointestinal: Reports: No symptoms Genitourinary: Reports: no symptoms Musculoskeletal: Reports: no symptoms Skin: Reports: no symptoms Neurological: Reports: no symptoms Psychiatric: Reports: no symptoms - Patient Data Vitals - most recent: Last Vital Signs Temp 36.5 C 10/24/16 16:29 Pulse 69 10/24/16 16:29 Resp 22 H 10/24/16 16:29 BP 132/60 10/24/16 16:29 Pulse Ox 92 L 10/24/16 16:34 Weight - most recent: 62.233 kg I&O - last 24 hours: Intake & Output 10/24/16 10/24/16 10/24/16 06:59 14:59 22:59 Intake Total 475 1830 643 Output Total 1400 1050 200 Balance -925 780 443 Lab Results last 24 hrs: Laboratory Results - last 24 hr 10/24/16 10/24/16 Range/Units 05:50 05:50 WBC 11.72 H (4.23-9.07) K/mm3 RBC 3.61 L (4.63-6.08) M/mm3 Hgb 10.2 L (13.7-17.5) gm/L Hct 32.8 L (40.1-51.0) % MCV 90.9 (79.0-92.2) fl MCH 28.3 (25.7-32.2) pg MCHC 31.1 L (32.2-35.5) g/dl RDW Std Deviation 48.3 H (35.1-43.9) fL Plt Count 270 (163-337) K/mm3 MPV 9.3 L (9.4-12.3) fl Neut % (Auto) 92.0 H (34.0-67.9) % Lymph % (Auto) 3.9 L (21.8-53.1) % [place] % (Auto) 3.7 L (5.3-12.2) % Eos % (Auto) 0 L (0.8-7.0) Baso % (Auto) 0.0 L (0.1-1.2) % Neut # 10.78 H (1.78-5.38) K/mm3 Lymph # 0.46 L (1.32-3.57) K/mm3 [place] # 0.43 (0.30-0.82) K/mm3 Eos # 0.00 L (0.04-0.54) K/mm3 Baso # 0.00 L (0.01-0.08) K/mm3 Manual Slide Review Abnormal smear Sodium 140 (136-145) mEq/L Potassium 4.7 (3.5-5.1) mEq/L Chloride 103 (98-107) mEq/L Carbon Dioxide 28 (21-32) mEq/L Anion Gap 13.7 (5-15) BUN 44 H (7-18) mg/dL Creatinine 1.4 H (0.7-1.3) mg/dL Est Cr Clr Drug Dosing 37.66 mL/min Estimated GFR (MDRD) 49 (>60) mL/min BUN/Creatinine Ratio 31.4 H (14-18) Glucose 156 H (83-115) mg/dL Calcium 8.8 (8.5-10.1) mg/dL Magnesium 2.6 H (1.8-2.4) mg/dl C-Reactive Protein 1.4 H* (<1.0) mg/dL Julian Results last 24 hrs: Microbiology 10/21/16 09:01 Aerobic Blood Culture - Preliminary Blood NO GROWTH AFTER 3 DAYS Anaerobic Blood Culture - Preliminary NO GROWTH AFTER 3 DAYS 10/22/16 16:52 Stool Occult Blood (JULIAN) - Final Stool / Feces NEGATIVE OCCULT BLOOD Med Orders - Current: Current Medications Acetaminophen (Tylenol) 650 mg PO Q4H PRN PRN Reason: Pain (Mild 1-3)/fever Ascorbic Acid (Vitamin C) 500 mg PO DAILY [facility] [place] Last Admin: 10/24/16 08:38 Dose: 500 mg Aspirin (Aspirin) 81 mg PO BEDTIME [facility] [place] Last Admin: 10/23/16 22:56 Dose: Not Given Bisacodyl (Dulcolax) 5 mg PO DAILY PRN PRN Reason: Constipation Last Admin: 10/23/16 07:18 Dose: 5 mg Digoxin (Lanoxin) 125 mcg PO WITHLUNCH [facility] [place] Last Admin: 10/24/16 11:12 Dose: 125 mcg Diltiazem HCl (Cardizem Cd) 120 mg PO BID [facility] [place] Last Admin: 10/24/16 08:39 Dose: 120 mg Docusate Sodium (Colace) 100 mg PO BID PRN PRN Reason: Constipation Last Admin: 10/23/16 07:18 Dose: 100 mg Docusate Sodium (Colace) 100 mg PO DAILY [facility] [place] Last Admin: 10/24/16 08:39 Dose: 100 mg Enoxaparin Sodium (Lovenox) 40 mg SUBCUT DAILY [facility] [place] Last Admin: 10/24/16 08:41 Dose: 40 mg Ferrous Sulfate (Ferrous Sulfate) 325 mg PO WITHBREAKFAST [facility] [place] Last Admin: 10/24/16 06:24 Dose: 325 mg Flunisolide (Nasalide Nasal [place]) 2 ml NASBOTH BID [facility] [place] Last Admin: 10/24/16 08:38 Dose: 1 spray Folic Acid (Folic Acid) 1 mg PO DAILY [facility] [place] Last Admin: 10/24/16 08:42 Dose: 1 mg Furosemide (Lasix) 20 mg PO BID [facility] [place] Last Admin: 10/24/16 08:38 Dose: 20 mg Guaifenesin (Mucinex) 600 mg PO TID [facility] [place] Last Admin: 10/24/16 14:41 Dose: 600 mg Azithromycin 500 mg/ Sodium (Chloride) 250 mls @ 250 mls/hr IV Q24H [facility] [place] Last Admin: 10/24/16 14:50 Dose: 250 mls/hr Ceftriaxone Sodium 1 gm/ (Sodium Chloride) 100 mls @ 200 mls/hr IV Q24H [facility] [place] Last Admin: 10/24/16 14:41 Dose: 200 mls/hr Levalbuterol HCl (Xopenex) 1.25 mg NEB QID [facility] [place] Last Admin: 10/24/16 16:33 Dose: 1.25 mg Methylprednisolone Sodium Succinate (Solu-Medrol) 80 mg IV Q12H [facility] [place] Last Admin: 10/24/16 14:38 Dose: 80 mg Metoprolol Tartrate (Lopressor) 5 mg IVPUSH Q4H PRN PRN Reason: heart rate >130 Last Admin: 10/22/16 10:35 Dose: 5 mg Mometasone Furoate/Formoterol Fumar (Dulera 200-5 Mcg) 2 puff IH BID [facility] [place] Last Admin: 10/24/16 08:13 Dose: 2 puff Multivitamins (Thera) 1 each PO DAILY [facility] [place] Last Admin: 10/24/16 08:39 Dose: 1 each Ondansetron HCl (Zofran Odt) 4 mg PO Q4H PRN PRN Reason: nausea, able to take PO Ondansetron HCl (Zofran) 4 mg IV Q4H PRN PRN Reason: Nausea/Vomiting Pantoprazole Sodium (Protonix) 40 mg PO DAILY [facility] [place] Last Admin: 10/24/16 08:39 Dose: 40 mg Polyethylene Glycol (Miralax) 17 gm PO DAILY PRN PRN Reason: Constipation Sodium Chloride (Saline Flush) 10 ml FLUSH ASDIRECTED PRN PRN Reason: Keep Vein Open Spironolactone (Aldactone) 25 mg PO DAILY [facility] [place] Last Admin: 10/24/16 08:40 Dose: 25 mg Temazepam (Restoril) 15 mg PO BEDTIME PRN PRN Reason: Sleep Last Admin: 10/22/16 00:06 Dose: 15 mg Discontinued Medications Albuterol (Proventil Neb Soln) 2.5 mg NEB ONETIME ONE Stop: 10/21/16 07:27 Last Admin: 10/21/16 07:46 Dose: 2.5 mg Albuterol (Proventil Neb Soln) 2.5 mg NEB Q2H PRN PRN Reason: Shortness Of Breath/wheezing Albuterol/Ipratropium (Duoneb 3.0-0.5 Mg/3 Ml) 3 ml NEB ONETIME ONE Stop: 10/21/16 06:53 Last Admin: 10/21/16 06:59 Dose: 3 ml Albuterol/Ipratropium (Duoneb 3.0-0.5 Mg/3 Ml) Confirm Administered Dose 3 ml .ROUTE .STK-MED ONE Stop: 10/21/16 06:57 Last Admin: 10/21/16 07:00 Dose: Not Given Albuterol/Ipratropium (Duoneb 3.0-0.5 Mg/3 Ml) 3 ml NEB Q4H [facility] [place] Last Admin: 10/22/16 10:57 Dose: 3 ml Levofloxacin/Dextrose 750 mg/ (Premix) 150 mls @ 100 mls/hr IV ONETIME ONE Stop: 10/21/16 09:57 Last Admin: 10/21/16 09:08 Dose: 100 mls/hr Levalbuterol HCl (Xopenex) 1.25 mg NEB Q4H [facility] [place] Last Admin: 10/23/16 14:04 Dose: 1.25 mg Levalbuterol HCl (Xopenex) 1.25 mg NEB Q6HRRT [facility] [place] Methylprednisolone Sodium Succinate (Solu-Medrol) 125 mg IVPUSH ONETIME ONE Stop: 10/21/16 06:53 Last Admin: 10/21/16 06:57 Dose: 125 mg Methylprednisolone Sodium Succinate (Solu-Medrol) 125 mg IV Q12H [facility] [place] Last Admin: 10/23/16 02:59 Dose: 125 mg Metoprolol Tartrate (Lopressor) Confirm Administered Dose 5 mg .ROUTE .STK-MED ONE Stop: 10/22/16 10:33 Last Admin: 10/22/16 10:40 Dose: Not Given Non-Formulary Medication (Diflucan Oral) 250 mcg PO DAILY PRN PRN Reason: yeast Non-Formulary Medication (Flunisolide [Aerospan]) 2 spray NASBOTH DAILY [facility] - Exam Quality Assessment: supplemental oxygen, DVT prophylaxis General: alert, oriented, cooperative, no acute distress HEENT: Pupils equal, Pupils reactive, EOMI Neck: supple, trachea midline Lungs: Normal respiratory effort, Decreased breath sounds, Wheezing Cardiovascular: regular rate, regular rhythm Abdomen: bowel sounds present, soft, no tenderness, no distension (Male) Exam: Deferred Back Exam: normal inspection Extremities: normal pulses Skin: warm Neurological: no new focal deficit, normal gait, normal speech Psy/Mental Status: alert, normal affect, normal mood - Problem List Review Problem List Initiated/Reviewed/Updated: Yes - My Orders Last 24 Hours: My Active Orders 10/23/16 21:00 Levalbuterol HCl [Xopenex] 1.25 mg NEB QID - Plan Plan:: Acute hypoxic respiratory failure -Supplemental oxygen -IV solumedrol, will start taper today- to 80mg Q12 hrs -Nebs, RT, aggressive pulmonary toilet -CXR in ED with bronchitis changes; Repeat CXR today is unchanged- no evidence of infiltrates/consolidation COPD exacerbation -As above -Chronic steroid and oxygen dependent -Cont usual home meds -Zithromax IV for antiinflammatory effect - Mycoplasma positive-- zithromax as above, added rocephin HAS GRADUALLY IMPROVED O2 SAT REQUIREMENTS TBD; DC MON, 10/26/16. Chronic: HTN- cont home meds Hx of CHF and afib- cont home meds- ASA/BB/diuretic/CCB Other: GI Prophylax DVT prophylax PT/OT Code status: DNR/DNI Clinically improving, PT recommends outpatient PT at this time. Likely dc in next 48 hours.
[2016-10-24] MEDS: Aspirin 81 MG Tab.Chew PO SCH ×2 (19:47→20:43)
[2016-10-25] MEDS: methylPREDNISolone Sodium Succinate 125 MG/2 ML SDV IV SCH ×2 (04:19→15:22)
[2016-10-25] MEDS: Ferrous Sulfate 325 MG Tab PO SCH (06:11)
[2016-10-25] MEDS: Levalbuterol HCl 1.25 MG/3 ML Neb NEB SCH (06:28)
[2016-10-25] MEDS: Pantoprazole 40 MG Tab.CR PO SCH (08:33)
[2016-10-25] MEDS: Docusate Sodium 100 MG Cap PO SCH (08:34)
[2016-10-25] MEDS: Multivitamins,Therapeutic Tab PO SCH (08:34)
[2016-10-25] MEDS: Folic Acid 1 MG Tab PO SCH (08:34)
[2016-10-25] MEDS: Spironolactone 25 MG Tab PO SCH (08:34)
[2016-10-25] MEDS: guaiFENesin 600 MG Tab.ER PO SCH ×3 (08:34→21:52)
[2016-10-25] MEDS: Furosemide 20 MG Tab PO SCH ×2 (08:34→21:51)
[2016-10-25] MEDS: Ascorbic Acid 500 MG Tab PO SCH (08:34)
[2016-10-25] MEDS: Enoxaparin 40 MG/0.4 ML Syringe SUBCUT SCH (08:34)
[2016-10-25] MEDS: Diltiazem 120 MG Cap.CD PO SCH ×2 (08:34→21:51)
[2016-10-25] MEDS: Formoterol/Mometasone 200-5 MCG 8.8 GM Inhaler IH SCH ×2 (09:39→21:07)
[2016-10-25] MEDS: Levalbuterol HCl 1.25 MG/0.5 ML Neb NEB SCH ×3 (09:39→21:08)
[2016-10-25] MEDS: Digoxin 250 MCG Tab PO SCH (11:43)
[2016-10-25] MEDS: cefTRIAXone 1 GM in Sodium Chloride 0.9% 100 ML IV SCH (15:21)
--- NOTE | 2016-10-25 15:24 | PCM.PN ---
- General Info Date of Service: 10/25/16 (LOS>96 hours for [place].) Functional Status: Reports: tolerating diet, ambulating, urinating - Review of Systems General: Reports: no symptoms HEENT: Reports: no symptoms Pulmonary: Reports: shortness of breath Cardiovascular: Reports: no symptoms Gastrointestinal: Reports: No symptoms Genitourinary: Reports: no symptoms Musculoskeletal: Reports: no symptoms Skin: Reports: no symptoms Neurological: Reports: no symptoms Psychiatric: Reports: no symptoms - Patient Data Vitals - most recent: Last Vital Signs Temp 36.4 C 10/25/16 08:33 Pulse 75 10/25/16 11:43 Resp 14 10/25/16 08:33 BP 128/68 10/25/16 08:34 Pulse Ox 93 L 10/25/16 09:40 Weight - most recent: 62.233 kg I&O - last 24 hours: Intake & Output 10/25/16 10/25/16 10/25/16 06:59 14:59 22:59 Intake Total 0 1920 Output Total 550 600 Balance -550 1320 Lab Results last 24 hrs: Laboratory Results - last 24 hr 10/25/16 10/25/16 Range/Units 05:44 05:44 WBC 10.36 H (4.23-9.07) K/mm3 RBC 3.61 L (4.63-6.08) M/mm3 Hgb 10.4 L (13.7-17.5) gm/L Hct 32.9 L (40.1-51.0) % MCV 91.1 (79.0-92.2) fl MCH 28.8 (25.7-32.2) pg MCHC 31.6 L (32.2-35.5) g/dl RDW Std Deviation 48.2 H (35.1-43.9) fL Plt Count 258 (163-337) K/mm3 MPV 9.7 (9.4-12.3) fl Neut % (Auto) 90.3 H (34.0-67.9) % Lymph % (Auto) 4.9 L (21.8-53.1) % [place] % (Auto) 4.1 L (5.3-12.2) % Eos % (Auto) 0 L (0.8-7.0) Baso % (Auto) 0.0 L (0.1-1.2) % Neut # 9.36 H (1.78-5.38) K/mm3 Lymph # 0.51 L (1.32-3.57) K/mm3 [place] # 0.42 (0.30-0.82) K/mm3 Eos # 0.00 L (0.04-0.54) K/mm3 Baso # 0.00 L (0.01-0.08) K/mm3 Manual Slide Review Abnormal smear Sodium 140 (136-145) mEq/L Potassium 4.6 (3.5-5.1) mEq/L Chloride 104 (98-107) mEq/L Carbon Dioxide 30 (21-32) mEq/L Anion Gap 10.6 (5-15) BUN 49 H (7-18) mg/dL Creatinine 1.6 H (0.7-1.3) mg/dL Est Cr Clr Drug Dosing 33.64 mL/min Estimated GFR (MDRD) 42 (>60) mL/min BUN/Creatinine Ratio 30.6 H (14-18) Glucose 156 H (83-115) mg/dL Calcium 8.5 (8.5-10.1) mg/dL Magnesium 2.6 H (1.8-2.4) mg/dl C-Reactive Protein < 0.2 (<1.0) mg/dL Julian Results last 24 hrs: Microbiology 10/21/16 09:01 Aerobic Blood Culture - Preliminary Blood NO GROWTH AFTER 4 DAYS Anaerobic Blood Culture - Preliminary NO GROWTH AFTER 4 DAYS Med Orders - Current: Current Medications Acetaminophen (Tylenol) 650 mg PO Q4H PRN PRN Reason: Pain (Mild 1-3)/fever Ascorbic Acid (Vitamin C) 500 mg PO DAILY [facility] Last Admin: 10/25/16 08:34 Dose: 500 mg Aspirin (Aspirin) 81 mg PO BEDTIME [facility] Last Admin: 10/24/16 20:43 Dose: Not Given Bisacodyl (Dulcolax) 5 mg PO DAILY PRN PRN Reason: Constipation Last Admin: 10/23/16 07:18 Dose: 5 mg Digoxin (Lanoxin) 125 mcg PO WITHLUNCH [facility] Last Admin: 10/25/16 11:43 Dose: 125 mcg Diltiazem HCl (Cardizem Cd) 120 mg PO BID [facility] Last Admin: 03/05/17 08:34 Dose: 120 mg Docusate Sodium (Colace) 100 mg PO BID PRN PRN Reason: Constipation Last Admin: 10/23/16 07:18 Dose: 100 mg Docusate Sodium (Colace) 100 mg PO DAILY [facility] Last Admin: 10/25/16 08:34 Dose: 100 mg Enoxaparin Sodium (Lovenox) 40 mg SUBCUT DAILY [facility] Last Admin: 10/25/16 08:34 Dose: 40 mg Ferrous Sulfate (Ferrous Sulfate) 325 mg PO WITHBREAKFAST [facility] Last Admin: 10/25/16 06:11 Dose: 325 mg Flunisolide (Nasalide Nasal [place]) 2 ml NASBOTH BID [facility] Last Admin: 10/25/16 08:33 Dose: 2 spray Folic Acid (Folic Acid) 1 mg PO DAILY [facility] Last Admin: 10/25/16 08:34 Dose: 1 mg Furosemide (Lasix) 20 mg PO BID [facility] Last Admin: 10/25/16 08:34 Dose: 20 mg Guaifenesin (Mucinex) 600 mg PO TID [facility] Last Admin: 10/25/16 08:34 Dose: 600 mg Azithromycin 500 mg/ Sodium (Chloride) 250 mls @ 250 mls/hr IV Q24H [facility] Last Admin: 10/24/16 14:50 Dose: 250 mls/hr Ceftriaxone Sodium 1 gm/ (Sodium Chloride) 100 mls @ 200 mls/hr IV Q24H [facility] Last Admin: 10/24/16 14:41 Dose: 200 mls/hr Levalbuterol HCl (Xopenex) 1.25 mg NEB QIDRT [facility] Last Admin: 10/25/16 09:39 Dose: 1.25 mg Methylprednisolone Sodium Succinate (Solu-Medrol) 80 mg IV Q12H [facility] Last Admin: 10/25/16 04:19 Dose: 80 mg Metoprolol Tartrate (Lopressor) 5 mg IVPUSH Q4H PRN PRN Reason: heart rate >130 Last Admin: 10/22/16 10:35 Dose: 5 mg Mometasone Furoate/Formoterol Fumar (Dulera 200-5 Mcg) 2 puff IH BID [facility] Last Admin: 10/25/16 09:39 Dose: 2 puff Multivitamins (Thera) 1 each PO DAILY [facility] Last Admin: 10/25/16 08:34 Dose: 1 each Ondansetron HCl (Zofran Odt) 4 mg PO Q4H PRN PRN Reason: nausea, able to take PO Ondansetron HCl (Zofran) 4 mg IV Q4H PRN PRN Reason: Nausea/Vomiting Pantoprazole Sodium (Protonix) 40 mg PO DAILY [facility] Last Admin: 10/25/16 08:33 Dose: 40 mg Polyethylene Glycol (Miralax) 17 gm PO DAILY PRN PRN Reason: Constipation Sodium Chloride (Saline Flush) 10 ml FLUSH ASDIRECTED PRN PRN Reason: Keep Vein Open Spironolactone (Aldactone) 25 mg PO DAILY [facility] Last Admin: 10/25/16 08:34 Dose: 25 mg Temazepam (Restoril) 15 mg PO BEDTIME PRN PRN Reason: Sleep Last Admin: 10/22/16 00:06 Dose: 15 mg Discontinued Medications Albuterol (Proventil Neb Soln) 2.5 mg NEB ONETIME ONE Stop: 10/21/16 07:27 Last Admin: 10/21/16 07:46 Dose: 2.5 mg Albuterol (Proventil Neb Soln) 2.5 mg NEB Q2H PRN PRN Reason: Shortness Of Breath/wheezing Albuterol/Ipratropium (Duoneb 3.0-0.5 Mg/3 Ml) 3 ml NEB ONETIME ONE Stop: 10/21/16 06:53 Last Admin: 10/21/16 06:59 Dose: 3 ml Albuterol/Ipratropium (Duoneb 3.0-0.5 Mg/3 Ml) Confirm Administered Dose 3 ml .ROUTE .STK-MED ONE Stop: 10/21/16 06:57 Last Admin: 10/21/16 07:00 Dose: Not Given Albuterol/Ipratropium (Duoneb 3.0-0.5 Mg/3 Ml) 3 ml NEB Q4H [facility] Last Admin: 10/22/16 10:57 Dose: 3 ml Levofloxacin/Dextrose 750 mg/ (Premix) 150 mls @ 100 mls/hr IV ONETIME ONE Stop: 10/21/16 09:57 Last Admin: 10/21/16 09:08 Dose: 100 mls/hr Levalbuterol HCl (Xopenex) 1.25 mg NEB Q4H [facility] Last Admin: 10/23/16 14:04 Dose: 1.25 mg Levalbuterol HCl (Xopenex) 1.25 mg NEB Q6HRRT [facility] Levalbuterol HCl (Xopenex) 1.25 mg NEB QID [facility] Last Admin: 10/24/16 16:33 Dose: 1.25 mg Levalbuterol HCl (Xopenex) 1.25 mg NEB QIDRT [facility] Last Admin: 10/25/16 06:28 Dose: 1.25 mg Methylprednisolone Sodium Succinate (Solu-Medrol) 125 mg IVPUSH ONETIME ONE Stop: 10/21/16 06:53 Last Admin: 10/21/16 06:57 Dose: 125 mg Methylprednisolone Sodium Succinate (Solu-Medrol) 125 mg IV Q12H [facility] Last Admin: 10/23/16 02:59 Dose: 125 mg Metoprolol Tartrate (Lopressor) Confirm Administered Dose 5 mg .ROUTE .STK-MED ONE Stop: 10/22/16 10:33 Last Admin: 10/22/16 10:40 Dose: Not Given Non-Formulary Medication (Diflucan Oral) 250 mcg PO DAILY PRN PRN Reason: yeast Non-Formulary Medication (Flunisolide [Aerospan]) 2 spray NASBOTH DAILY [facility] - Exam Quality Assessment: DVT prophylaxis General: alert, oriented, cooperative, no acute distress HEENT: Pupils equal, Pupils reactive, EOMI Neck: supple, trachea midline, no JVD Lungs: Normal respiratory effort, Rhonchi Cardiovascular: regular rate, regular rhythm Abdomen: bowel sounds present, soft, no tenderness, no distension (Male) Exam: Deferred Back Exam: normal inspection Extremities: normal pulses Skin: warm Neurological: no new focal deficit, normal gait, normal speech Psy/Mental Status: alert, normal affect, normal mood - Problem List Review Problem List Initiated/Reviewed/Updated: Yes - My Orders Last 24 Hours: My Active Orders 10/25/16 10:00 Levalbuterol HCl [Xopenex] 1.25 mg NEB QIDRT - Plan Plan:: Acute hypoxic respiratory failure -Supplemental oxygen -IV solumedrol, will start taper today- to 80mg Q12 hrs -Nebs, RT, aggressive pulmonary toilet -CXR in ED with bronchitis changes; Repeat CXR today is unchanged- no evidence of infiltrates/consolidation COPD exacerbation -As above -Chronic steroid and oxygen dependent -Cont usual home meds -Zithromax IV for antiinflammatory effect - Mycoplasma positive-- zithromax as above, added rocephin HAS GRADUALLY IMPROVED O2 SAT REQUIREMENTS TBD; DC MON, 10/26/16. Chronic: HTN- cont home meds Hx of CHF and afib- cont home meds- ASA/BB/diuretic/CCB Other: GI Prophylax DVT prophylax PT/OT Code status: DNR/DNI LOS>96 hours for [place], Mycoplasma/COPD.
[2016-10-25] MEDS: Azithromycin 500 MG in Sodium Chloride 0.9% 250 ML IV SCH (15:53)
[2016-10-25] MEDS: Aspirin 81 MG Tab.Chew PO SCH (21:52)
[2016-10-26] MEDS: methylPREDNISolone Sodium Succinate 125 MG/2 ML SDV IV SCH (04:01)
[2016-10-26] MEDS: Levalbuterol HCl 1.25 MG/0.5 ML Neb NEB SCH ×2 (06:28→09:25)
[2016-10-26] MEDS ORDERED: Furosemide 40 MG/4 ML VIAL IVPUSH ONE (07:02)
[2016-10-26] MEDS: Ferrous Sulfate 325 MG Tab PO SCH (07:41)
[2016-10-26] MEDS: Furosemide 20 MG Tab PO SCH ×2 (07:42→14:38)
[2016-10-26] MEDS: Formoterol/Mometasone 200-5 MCG 8.8 GM Inhaler IH SCH (09:26)
[2016-10-26] MEDS: Enoxaparin 40 MG/0.4 ML Syringe SUBCUT SCH (09:52)
[2016-10-26] MEDS: Multivitamins,Therapeutic Tab PO SCH (09:53)
[2016-10-26] MEDS: Folic Acid 1 MG Tab PO SCH (09:54)
[2016-10-26] MEDS: Diltiazem 120 MG Cap.CD PO SCH (09:54)
[2016-10-26] MEDS: Spironolactone 25 MG Tab PO SCH (09:54)
[2016-10-26] MEDS: Ascorbic Acid 500 MG Tab PO SCH (09:54)
[2016-10-26] MEDS: Docusate Sodium 100 MG Cap PO SCH (09:54)
[2016-10-26] MEDS: Pantoprazole 40 MG Tab.CR PO SCH (09:54)
[2016-10-26] MEDS: guaiFENesin 600 MG Tab.ER PO SCH (09:54)
[2016-10-26 09:57] VITALS: BP 127/65
[2016-10-26] MEDS ORDERED: Levalbuterol HCl 1.25 MG/3 ML Neb NEB SCH (09:59)
--- NOTE | 2016-10-26 10:23 | PCM.DCSUM1 ---
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 He does have PMH hx of steroid and oxygen dependent COPD, CHF, CAD. He was last admitted in August 2016 for acute COPD exacerbation. He reports that the past 5-7 days he has had "a head cold" and worsening fatigue. Appetite is good, he has had mild headaches off an on due to congestion. He is coughing, occasional productive sputum, clear to yellow in color. He reports oxygen saturation at home at lowest was 59% on his home pulse ox machine, his then brought him into ER. He tried taking an extra dose of lasix at home when his SOB awoke him in the wood bucker hours, around 0430. SOB progressed to the point that he was essentially in respiratory distress on arrival to ED. Patient was admitted to medical surgical unit for treatment of COPD exacerbation , acute hypoxic respiratory failure per Hospitalist service. He was found to have mycoplasma + sputum. Follow up CXR was negative for infiltrates or consolidation. Labs slowly improved- elevated WBC and CRP. VS remained stable. Iron studies were done for anemia, found to be iron deficient. Occult stool was negative. B12 levels normal. He was started on iron supplements once daily. Respiratory status continued to improve. He rec'd 5 days of zithromax and rocephin, one dose of levaquin in ER. He will be dc'd on decreasing prednisone taper and have follow up with his PCP, Dr. Buchanan within 5-7 days of discharge. Message was left for Dr. Buchanan on discharge update today. - Discharge Data Discharge Date: 10/26/16 (admit date 10/21/16) Discharge Disposition: Home, Self-Care 01 Condition: Good - Discharge Diagnosis/Problem(s) (1) Acute respiratory failure with hypoxia SNOMED Code(s): 76306449, 866448299 ICD Code: J96.01 - ACUTE RESPIRATORY FAILURE WITH HYPOXIA Status: Acute Priority: High (2) COPD exacerbation SNOMED Code(s): 697795939, 332807484 ICD Code: J44.1 - CHRONIC OBSTRUCTIVE PULMONARY DISEASE W (ACUTE) EXACERBATION Status: Acute Priority: High (3) Mycoplasma infection SNOMED Code(s): 490796482 ICD Code: A49.3 - MYCOPLASMA INFECTION, UNSPECIFIED SITE Status: Acute Priority: High (4) HTN (hypertension) SNOMED Code(s): 49366153 ICD Code: I10 - ESSENTIAL (PRIMARY) HYPERTENSION Status: Chronic Priority : High Qualifiers: Hypertension type: essential hypertension Qualified Code(s): I10 - Essential (primary) hypertension - Patient Summary/Data Operative Procedure(s) Performed: None Complications: None Consults: Consultations 10/21/16 15:00 Consult to Case Management [CONS] Routine Consult to Theoretical Physics Teacher [CONS] Routine OT Evaluation and Treatment [CONS] Routine PT Evaluation and Treatment [CONS] Routine Labs Pending at D/C: None Recommended Follow-up Testing/Procedures: Follow up with Dr. Buchanan within 5-7 days of discharge Planned Operative Procedure(s) after DC: None Hospital Course: As above - Patient Instructions Diet: Usual Diet as Tolerated, Low Sodium Activity: As Tolerated, No Strenuous Activities Showering/Bathing: May Shower Notify Provider of: Fever, Increased Pain, Nausea and/or Vomiting (increasing cough, shortness of breath, chest pain/tightness) - Discharge Plan Prescriptions/Med Rec: Docusate Sodium [Colace] 100 mg PO BID #60 cap Ferrous Sulfate 325 mg PO WITHBREAKFAST #30 tablet Prednisone [IJD: Prednisone] 10 mg PO DAILY #30 tab Home Medications: Home Meds Ascorbic Acid [Vitamin C] 500 mg PO DAILY 08/16/16 [History] Aspirin 81 mg PO BEDTIME 08/16/16 [History] Diflucan Oral 250 mcg PO DAILY PRN 08/16/16 [History] Digoxin [Lanoxin] 125 mcg PO DAILY 08/16/16 [History] Diltiazem [Cardizem CD] 120 mg PO BID 08/16/16 [History] Flunisolide [Aerospan] 2 spray NASBOTH DAILY 08/16/16 [History] Fluticasone/Salmeterol [Advair 250-50 Diskus] 1 puff INH BID 08/16/16 [History] Folic Acid 0.8 mg PO DAILY 08/16/16 [History] Furosemide [Lasix] 20 mg PO BID 08/16/16 [History] Multivitamin [Multivitamins] 1 tab PO DAILY 08/16/16 [History] Nitroglycerin [Nitrostat] 0.4 mg SL Q5M PRN 08/16/16 [History] Omeprazole 20 mg PO DAILY 08/16/16 [History] Spironolactone [Aldactone] 25 mg PO DAILY 08/16/16 [History] guaiFENesin [Mucinex] 600 mg PO DAILY PRN 08/16/16 [History] predniSONE [Prednisone] 5 mg PO DAILY 08/16/16 [History] Albuterol/Ipratropium [DuoNeb 3.0-0.5 MG/3 ML] 3 ml NEB QIDRT #40 neb 09/03/16 [ Rx] Docusate Sodium [Colace] 100 mg PO BID #60 cap 10/26/16 [Rx] Ferrous Sulfate 325 mg PO WITHBREAKFAST #30 tablet 10/26/16 [Rx] Prednisone [IJD: Prednisone] 10 mg PO DAILY #30 tab 10/26/16 [Rx] Patient Handouts: Chronic Obstructive Pulmonary Disease Exacerbation, Easy-to- Read, Heart Failure, [id number] Forms: ED Department Discharge Referrals: William Buchanan MD [Primary Care Provider] - 11/02/16 1:45 pm (Please Follow up with Dr. Buchanan on Wednesday, November 02, 2016 at 1:45 PM. Please come 15 minutes early for registration.) - Discharge Summary/Plan Comment DC Time >30 min.: Yes (40 min) - Review of Systems General: Reports: no symptoms, weakness (improved) HEENT: Reports: no symptoms Pulmonary: Reports: shortness of breath (chronic- at baseline), cough (improved - chronic) Cardiovascular: Reports: dyspnea on exertion (chronic- at baseline) Gastrointestinal: Reports: No symptoms Genitourinary: Reports: no symptoms Musculoskeletal: Reports: no symptoms Skin: Reports: no symptoms Neurological: Reports: no symptoms Psychiatric: Reports: no symptoms - Patient Data Vitals - Most Recent: Last Vital Signs Temp 97.7 F 10/26/16 01:46 Pulse 82 10/26/16 09:54 Resp 30 H 10/26/16 01:46 BP 127/65 10/26/16 09:54 Pulse Ox 91 L 10/26/16 09:26 Weight - Most Recent: 65.317 kg I&O - Last 24 hours: Intake & Output 10/25/16 10/26/16 10/26/16 22:59 06:59 14:59 Intake Total 1110 400 810 Output Total 850 Balance 1110 -450 810 Lab Results - Last 24 hrs: Laboratory Results - last 24 hr 10/26/16 10/26/16 Range/Units 06:16 06:16 WBC 10.22 H (4.23-9.07) K/mm3 RBC 3.60 L (4.63-6.08) M/mm3 Hgb 10.4 L (13.7-17.5) gm/L Hct 32.5 L (40.1-51.0) % MCV 90.3 (79.0-92.2) fl MCH 28.9 (25.7-32.2) pg MCHC 32.0 L (32.2-35.5) g/dl RDW Std Deviation 48.3 H (35.1-43.9) fL Plt Count 252 (163-337) K/mm3 MPV 9.7 (9.4-12.3) fl Sodium 137 (136-145) mEq/L Potassium 4.5 (3.5-5.1) mEq/L Chloride 104 (98-107) mEq/L Carbon Dioxide 28 (21-32) mEq/L Anion Gap 9.5 (5-15) BUN 47 H (7-18) mg/dL Creatinine 1.4 H (0.7-1.3) mg/dL Est Cr Clr Drug Dosing 39.53 mL/min Estimated GFR (MDRD) 49 (>60) mL/min BUN/Creatinine Ratio 33.6 H (14-18) Glucose 145 H (83-115) mg/dL Calcium 8.3 L (8.5-10.1) mg/dL CORTNEY Results - Last 24 hrs: Microbiology 10/21/16 09:01 Aerobic Blood Culture - Preliminary Blood NO GROWTH AFTER 5 DAYS Anaerobic Blood Culture - Preliminary NO GROWTH AFTER 5 DAYS Med Orders - Current: Current Medications Acetaminophen (Tylenol) 650 mg PO Q4H PRN PRN Reason: Pain (Mild 1-3)/fever Ascorbic Acid (Vitamin C) 500 mg PO DAILY [facility] Last Admin: 10/26/16 09:54 Dose: 500 mg Aspirin (Aspirin) 81 mg PO BEDTIME [facility]IV[facility] Last Admin: 10/25/16 21:52 Dose: 81 mg Bisacodyl (Dulcolax) 5 mg PO DAILY PRN PRN Reason: Constipation Last Admin: 10/23/16 07:18 Dose: 5 mg Digoxin (Lanoxin) 125 mcg PO WITHLUNCH [facility] Last Admin: 10/25/16 11:43 Dose: 125 mcg Diltiazem HCl (Cardizem Cd) 120 mg PO BID [facility] Last Admin: 10/26/16 09:54 Dose: 120 mg Docusate Sodium (Colace) 100 mg PO BID PRN PRN Reason: Constipation Last Admin: 10/23/16 07:18 Dose: 100 mg Docusate Sodium (Colace) 100 mg PO DAILY [facility] Last Admin: 10/26/16 09:54 Dose: 100 mg Enoxaparin Sodium (Lovenox) 40 mg SUBCUT DAILY [facility] Last Admin: 10/26/16 09:52 Dose: 40 mg Ferrous Sulfate (Ferrous Sulfate) 325 mg PO WITHBREAKFAST [facility] Last Admin: 10/26/16 07:41 Dose: 325 mg Flunisolide (Nasalide Nasal [place]) 2 ml NASBOTH BID [facility] Last Admin: 10/25/16 21:52 Dose: 2 spray Folic Acid (Folic Acid) 1 mg PO DAILY [facility] Last Admin: 10/26/16 09:54 Dose: 1 mg Furosemide (Lasix) 20 mg PO BIDDIURETIC [facility] Last Admin: 10/26/16 07:42 Dose: 20 mg Guaifenesin (Mucinex) 600 mg PO TID [facility] Last Admin: 10/26/16 09:54 Dose: 600 mg Ceftriaxone Sodium 1 gm/ (Sodium Chloride) 100 mls @ 200 mls/hr IV Q24H [facility] Last Admin: 10/25/16 15:21 Dose: 200 mls/hr Levalbuterol HCl (Xopenex) 1.25 mg NEB QIDRT [facility] Metoprolol Tartrate (Lopressor) 5 mg IVPUSH Q4H PRN PRN Reason: heart rate >130 Last Admin: 10/22/16 10:35 Dose: 5 mg Mometasone Furoate/Formoterol Fumar (Dulera 200-5 Mcg) 2 puff IH BID [facility] Last Admin: 10/26/16 09:26 Dose: 2 puff Multivitamins (Thera) 1 each PO DAILY [facility] Last Admin: 10/26/16 09:53 Dose: 1 each Ondansetron HCl (Zofran Odt) 4 mg PO Q4H PRN PRN Reason: nausea, able to take PO Ondansetron HCl (Zofran) 4 mg IV Q4H PRN PRN Reason: Nausea/Vomiting Pantoprazole Sodium (Protonix) 40 mg PO DAILY [facility] Last Admin: 10/26/16 09:54 Dose: 40 mg Polyethylene Glycol (Miralax) 17 gm PO DAILY PRN PRN Reason: Constipation Sodium Chloride (Saline Flush) 10 ml FLUSH ASDIRECTED PRN PRN Reason: Keep Vein Open Spironolactone (Aldactone) 25 mg PO DAILY [facility] Last Admin: 10/26/16 09:54 Dose: 25 mg Temazepam (Restoril) 15 mg PO BEDTIME PRN PRN Reason: Sleep Last Admin: 10/22/16 00:06 Dose: 15 mg Discontinued Medications Albuterol (Proventil Neb Soln) 2.5 mg NEB ONETIME ONE Stop: 10/21/16 07:27 Last Admin: 10/21/16 07:46 Dose: 2.5 mg Albuterol (Proventil Neb Soln) 2.5 mg NEB Q2H PRN PRN Reason: Shortness Of Breath/wheezing Albuterol/Ipratropium (Duoneb 3.0-0.5 Mg/3 Ml) 3 ml NEB ONETIME ONE Stop: 10/21/16 06:53 Last Admin: 10/21/16 06:59 Dose: 3 ml Albuterol/Ipratropium (Duoneb 3.0-0.5 Mg/3 Ml) Confirm Administered Dose 3 ml .ROUTE .STK-MED ONE Stop: 10/21/16 06:57 Last Admin: 10/21/16 07:00 Dose: Not Given Albuterol/Ipratropium (Duoneb 3.0-0.5 Mg/3 Ml) 3 ml NEB Q4H [facility] Last Admin: 10/22/16 10:57 Dose: 3 ml Furosemide (Lasix) 20 mg PO BID [facility] Last Admin: 10/25/16 21:51 Dose: 20 mg Furosemide (Lasix) 20 mg IVPUSH NOW ONE Stop: 10/26/16 07:03 Last Admin: 10/26/16 07:41 Dose: 20 mg Levofloxacin/Dextrose 750 mg/ (Premix) 150 mls @ 100 mls/hr IV ONETIME ONE Stop: 10/21/16 09:57 Last Admin: 10/21/16 09:08 Dose: 100 mls/hr Azithromycin 500 mg/ Sodium (Chloride) 250 mls @ 250 mls/hr IV Q24H [facility] Last Admin: 10/25/16 15:53 Dose: 250 mls/hr Levalbuterol HCl (Xopenex) 1.25 mg NEB Q4H [facility] Last Admin: 10/23/16 14:04 Dose: 1.25 mg Levalbuterol HCl (Xopenex) 1.25 mg NEB Q6HRRT [facility] Levalbuterol HCl (Xopenex) 1.25 mg NEB QID [facility] Last Admin: 10/24/16 16:33 Dose: 1.25 mg Levalbuterol HCl (Xopenex) 1.25 mg NEB QIDRT [facility] Last Admin: 10/25/16 06:28 Dose: 1.25 mg Levalbuterol HCl (Xopenex) 1.25 mg NEB QIDRT [facility] Last Admin: 10/26/16 09:25 Dose: 1.25 mg Methylprednisolone Sodium Succinate (Solu-Medrol) 125 mg IVPUSH ONETIME ONE Stop: 10/21/16 06:53 Last Admin: 10/21/16 06:57 Dose: 125 mg Methylprednisolone Sodium Succinate (Solu-Medrol) 125 mg IV Q12H [facility] Last Admin: 10/23/16 02:59 Dose: 125 mg Methylprednisolone Sodium Succinate (Solu-Medrol) 80 mg IV Q12H [facility] Last Admin: 10/26/16 04:01 Dose: 80 mg Metoprolol Tartrate (Lopressor) Confirm Administered Dose 5 mg .ROUTE .STK-MED ONE Stop: 10/22/16 10:33 Last Admin: 10/22/16 10:40 Dose: Not Given Non-Formulary Medication (Diflucan Oral) 250 mcg PO DAILY PRN PRN Reason: yeast Non-Formulary Medication (Flunisolide [Aerospan]) 2 spray NASBOTH DAILY [facility] - Exam Quality Assessment: Reports: supplemental oxygen, DVT prophylaxis General: Reports: alert, oriented, cooperative, no acute distress (pleasant and talkative today) HEENT: Reports: Pupils equal, Pupils reactive, EOMI, Mucous membr. moist/pink Neck: Reports: supple Lungs: Reports: Clear to auscultation, Normal respiratory effort, Decreased breath sounds (to bases). Denies: Rhonchi, Wheezing Cardiovascular: Reports: regular rate, regular rhythm Abdomen: Reports: bowel sounds present, soft, no tenderness (Male) Exam: Deferred Rectal (Males) Exam: Deferred Back Exam: Reports: normal inspection Extremities: Reports: edema (trace to LE) Skin: Reports: warm, dry Neurological: Reports: no new focal deficit Psy/Mental Status: Reports: alert, normal affect, normal mood *Q Meaningful Use (DIS) - VTE *Q VTE Criteria *Q: - Stroke *Q Stroke Criteria *Q: - AMI *Q AMI Criteria *Q: <Olinda Cazares - Last Filed: 10/27/16 20:18> Discharge Summary - Hospital Course Free Text/Narrative:: See above for hospital course - Patient Summary/Data Consults: Consultations 10/21/16 15:00 Consult to Case Management [CONS] Routine Consult to Theoretical Physics Teacher [CONS] Routine OT Evaluation and Treatment [CONS] Routine PT Evaluation and Treatment [CONS] Routine - Patient Data Vitals - Most Recent: Last Vital Signs Temp 36.6 C 10/26/16 09:56 Pulse 95 10/26/16 11:11 Resp 19 10/26/16 09:56 BP 127/65 10/26/16 09:56 Pulse Ox 94 L 10/26/16 11:11 Lab Results - Last 24 hrs: Laboratory Results - last 24 hr 10/22/16 Range/Units 10:10 Packed Cell Volume 32.8 RBC Folic Acid >1890 H (499-1504) ng/mL Hematocrit 32.8 % CORTNEY Results - Last 24 hrs: Microbiology 10/21/16 09:01 Aerobic Blood Culture - Preliminary Blood NO GROWTH AFTER 6 DAYS Anaerobic Blood Culture - Preliminary NO GROWTH AFTER 6 DAYS Med Orders - Current: Current Medications Discontinued Medications Acetaminophen (Tylenol) 650 mg PO Q4H PRN PRN Reason: Pain (Mild 1-3)/fever Albuterol (Proventil Neb Soln) 2.5 mg NEB ONETIME ONE Stop: 10/21/16 07:27 Last Admin: 10/21/16 07:46 Dose: 2.5 mg Albuterol (Proventil Neb Soln) 2.5 mg NEB Q2H PRN PRN Reason: Shortness Of Breath/wheezing Albuterol/Ipratropium (Duoneb 3.0-0.5 Mg/3 Ml) 3 ml NEB ONETIME ONE Stop: 10/21/16 06:53 Last Admin: 10/21/16 06:59 Dose: 3 ml Albuterol/Ipratropium (Duoneb 3.0-0.5 Mg/3 Ml) Confirm Administered Dose 3 ml .ROUTE .STK-MED ONE Stop: 10/21/16 06:57 Last Admin: 10/21/16 07:00 Dose: Not Given Albuterol/Ipratropium (Duoneb 3.0-0.5 Mg/3 Ml) 3 ml NEB Q4H [facility] Last Admin: 10/22/16 10:57 Dose: 3 ml Ascorbic Acid (Vitamin C) 500 mg PO DAILY [facility] Last Admin: 10/26/16 09:54 Dose: 500 mg Aspirin (Aspirin) 81 mg PO BEDTIME [facility] Last Admin: 10/25/16 21:52 Dose: 81 mg Bisacodyl (Dulcolax) 5 mg PO DAILY PRN PRN Reason: Constipation Last Admin: 10/23/16 07:18 Dose: 5 mg Digoxin (Lanoxin) 125 mcg PO WITHLUNCH [facility] Last Admin: 10/26/16 11:06 Dose: 125 mcg Diltiazem HCl (Cardizem Cd) 120 mg PO BID [facility] Last Admin: 10/26/16 09:54 Dose: 120 mg Docusate Sodium (Colace) 100 mg PO BID PRN PRN Reason: Constipation Last Admin: 10/23/16 07:18 Dose: 100 mg Docusate Sodium (Colace) 100 mg PO DAILY [facility] Last Admin: 10/26/16 09:54 Dose: 100 mg Enoxaparin Sodium (Lovenox) 40 mg SUBCUT DAILY [facility] Last Admin: 10/26/16 09:52 Dose: 40 mg Ferrous Sulfate (Ferrous Sulfate) 325 mg PO WITHBREAKFAST [facility] Last Admin: 10/26/16 07:41 Dose: 325 mg Flunisolide (Nasalide Nasal [place]) 2 ml NASBOTH BID [facility] Last Admin: 10/26/16 11:04 Dose: 2 spray Folic Acid (Folic Acid) 1 mg PO DAILY [facility] Last Admin: 10/26/16 09:54 Dose: 1 mg Furosemide (Lasix) 20 mg PO BID [facility] Last Admin: 10/25/16 21:51 Dose: 20 mg Furosemide (Lasix) 20 mg PO BIDDIURETIC [facility] Last Admin: 10/26/16 14:38 Dose: 20 mg Furosemide (Lasix) 20 mg IVPUSH NOW ONE Stop: 10/26/16 07:03 Last Admin: 10/26/16 07:41 Dose: 20 mg Guaifenesin (Mucinex) 600 mg PO TID [facility] Last Admin: 10/26/16 09:54 Dose: 600 mg Levofloxacin/Dextrose 750 mg/ (Premix) 150 mls @ 100 mls/hr IV ONETIME ONE Stop: 10/21/16 09:57 Last Admin: 10/21/16 09:08 Dose: 100 mls/hr Azithromycin 500 mg/ Sodium (Chloride) 250 mls @ 250 mls/hr IV Q24H [facility] Last Admin: 10/25/16 15:53 Dose: 250 mls/hr Ceftriaxone Sodium 1 gm/ (Sodium Chloride) 100 mls @ 200 mls/hr IV Q24H [facility] Last Admin: 10/25/16 15:21 Dose: 200 mls/hr Levalbuterol HCl (Xopenex) 1.25 mg NEB Q4H [facility] Last Admin: 10/23/16 14:04 Dose: 1.25 mg Levalbuterol HCl (Xopenex) 1.25 mg NEB Q6HRRT [facility] Levalbuterol HCl (Xopenex) 1.25 mg NEB QID [facility] Last Admin: 10/24/16 16:33 Dose: 1.25 mg Levalbuterol HCl (Xopenex) 1.25 mg NEB QIDRT [facility] Last Admin: 10/25/16 06:28 Dose: 1.25 mg Levalbuterol HCl (Xopenex) 1.25 mg NEB QIDRT [facility] Last Admin: 10/26/16 09:25 Dose: 1.25 mg Levalbuterol HCl (Xopenex) 1.25 mg NEB QIDRT [facility] Methylprednisolone Sodium Succinate (Solu-Medrol) 125 mg IVPUSH ONETIME ONE Stop: 10/21/16 06:53 Last Admin: 10/21/16 06:57 Dose: 125 mg Methylprednisolone Sodium Succinate (Solu-Medrol) 125 mg IV Q12H [facility] Last Admin: 10/23/16 02:59 Dose: 125 mg Methylprednisolone Sodium Succinate (Solu-Medrol) 80 mg IV Q12H [facility] Last Admin: 10/26/16 04:01 Dose: 80 mg Metoprolol Tartrate (Lopressor) 5 mg IVPUSH Q4H PRN PRN Reason: heart rate >130 Last Admin: 10/22/16 10:35 Dose: 5 mg Metoprolol Tartrate (Lopressor) Confirm Administered Dose 5 mg .ROUTE .STK-MED ONE Stop: 10/22/16 10:33 Last Admin: 10/22/16 10:40 Dose: Not Given Mometasone Furoate/Formoterol Fumar (Dulera 200-5 Mcg) 2 puff IH BID [facility] Last Admin: 10/26/16 09:26 Dose: 2 puff Multivitamins (Thera) 1 each PO DAILY [facility] Last Admin: 10/26/16 09:53 Dose: 1 each Non-Formulary Medication (Diflucan Oral) 250 mcg PO DAILY PRN PRN Reason: yeast Non-Formulary Medication (Flunisolide [Aerospan]) 2 spray NASBOTH DAILY [facility] Ondansetron HCl (Zofran Odt) 4 mg PO Q4H PRN PRN Reason: nausea, able to take PO Ondansetron HCl (Zofran) 4 mg IV Q4H PRN PRN Reason: Nausea/Vomiting Pantoprazole Sodium (Protonix) 40 mg PO DAILY [facility] Last Admin: 10/26/16 09:54 Dose: 40 mg Polyethylene Glycol (Miralax) 17 gm PO DAILY PRN PRN Reason: Constipation Sodium Chloride (Saline Flush) 10 ml FLUSH ASDIRECTED PRN PRN Reason: Keep Vein Open Spironolactone (Aldactone) 25 mg PO DAILY [facility] Last Admin: 10/26/16 09:54 Dose: 25 mg Temazepam (Restoril) 15 mg PO BEDTIME PRN PRN Reason: Sleep Last Admin: 10/22/16 00:06 Dose: 15 mg *Q Meaningful Use (DIS) - VTE *Q VTE Criteria *Q: - Stroke *Q Stroke Criteria *Q: - AMI *Q AMI Criteria *Q:
[2016-10-26] MEDS: Digoxin 250 MCG Tab PO SCH (11:06)
== END 2016-10-26 14:41 | disposition home or self-care (01) | DRG 189 ==
LOC: JD.ED 06:39 → JD.MS 08:39
PROVIDERS: ADMIT Internal Medicine Cardiovascular Disease; ATTEND Internal Medicine Cardiovascular Disease
DX: J96.01 Acute respiratory failure with hypoxia (principal); J44.1 Chronic obstructive pulmonary disease with (acute) exacerbation; I25.810 Atherosclerosis of coronary artery bypass graft(s) without angina pectoris; Z87.891 Personal history of nicotine dependence; A49.3 Mycoplasma infection, unspecified site; I11.0 Hypertensive heart disease with heart failure; I50.9 Heart failure, unspecified; Z95.5 Presence of coronary angioplasty implant and graft; I48.91 Unspecified atrial fibrillation; M19.90 Unspecified osteoarthritis, unspecified site; Z86.73 Personal history of transient ischemic attack (TIA), and cerebral infarction without residual deficits; Z79.82 Long term (current) use of aspirin; Z99.81 Dependence on supplemental oxygen; Z79.899 Other long term (current) drug therapy; Z88.6 Allergy status to analgesic agent; Z66 Do not resuscitate
CPT/HCPCS: 36415; 36600; 71010; 80053; 80162; 82803; 83880; 84484; 85025; 85610; 85730; 86738; 93005; 94640; 94664; 96375; 99285; J2930; 71020; 71020-26; 80048; 82272; 82607; 82747; 83540; 83735; 84466; 85027; 86140; 87040; 87804; 94761; 96365; 96374; 97110-GP; 97116-GP; 97161-GP; 97165-GO; 97530-GP; 99239; A9270-GY; J0456; J0696; J1650; J1940; J1956; J3490; J7030; J7050

== ENCOUNTER 2017-06-16 08:31 | Inpatient (IN) | payer MEDICARE, BC ==
[2017-06-16] MEDS ORDERED: Sodium Chloride 0.9% 10 ML Syringe FLUSH PRN (08:39)
[2017-06-16] MEDS ORDERED: Albuterol/Ipratropium 3.0-0.5 MG/3 ML Neb Soln NEB ONE ×2 (08:40→09:28)
[2017-06-16] MEDS ORDERED: Magnesium Sulfate/Water 2 GM in Premix Bag 1 BAG IV ONE (08:41)
[2017-06-16] MEDS ORDERED: methylPREDNISolone Sodium Succinate 125 MG/2 ML SDV IVPUSH ONE (08:41)
--- NOTE | 2017-06-16 09:39 | EDM.PDOC ---
ED HPI GENERAL MEDICAL PROBLEM - General Chief Complaint: Respiratory Problem Stated Complaint: SOB Time Seen by Provider: 06/16/17 08:36 Source of Information: Reports: Patient, Family History Limitations: Reports: No Limitations - History of Present Illness INITIAL COMMENTS - FREE TEXT/NARRATIVE: The patient presents with increased shortness of breath since last night. He has a history of COPD and he wears 5L of oxygen at night. That did not help last night. He has been congested lately and having more of a cough. He had some chest pressure but that is better. He denies any swelling or pain in his legs. He has no abdominal pain, nausea or vomiting. Onset: Gradual Duration: Hour(s): (Last night) Location: Reports: Chest Quality: Reports: Pressure Severity: Mild Improves with: Reports: None Worsens with: Reports: None Context: Reports: Activity (Throught the night while resting) Associated Symptoms: Reports: Chest Pain, Cough, Shortness of Breath. Denies: Fever/Chills, Nausea/Vomiting Middle Chest Pain Score (Numeric/FACES): 5 - Related Data Allergies Allergy/AdvReac Type Severity Reaction Status Date / Time morphine Allergy Rash Verified 06/16/17 08:41 Home Meds: Home Meds Ascorbic Acid [Vitamin C] 500 mg PO DAILY 08/16/16 [History] Aspirin 81 mg PO BEDTIME 08/16/16 [History] Diflucan Oral 125 mcg PO DAILY 08/16/16 [History] Diltiazem [Cardizem CD] 120 mg PO BID 08/16/16 [History] Flunisolide [Aerospan] 2 spray NASBOTH DAILY 08/16/16 [History] Fluticasone/Salmeterol [Advair 250-50 Diskus] 1 puff INH BID 08/16/16 [History] Folic Acid 0.8 mg PO DAILY 08/16/16 [History] Furosemide [Lasix] 20 mg PO BID 08/16/16 [History] Multivitamin [Multivitamins] 1 tab PO DAILY 08/16/16 [History] Nitroglycerin [Nitrostat] 0.4 mg SL Q5M PRN 08/16/16 [History] Omeprazole 20 mg PO DAILY 08/16/16 [History] Spironolactone [Aldactone] 25 mg PO DAILY 08/16/16 [History] guaiFENesin [Mucinex] 600 mg PO DAILY PRN 08/16/16 [History] Albuterol/Ipratropium [DuoNeb 3.0-0.5 MG/3 ML] 3 ml NEB QIDRT #40 neb 09/03/16 [ Rx] Docusate Sodium [Colace] 100 mg PO BID #60 cap 10/26/16 [Rx] Ferrous Sulfate 325 mg PO WITHBREAKFAST #30 tablet 10/26/16 [Rx] Prednisone [IJD: Prednisone] 5 mg PO DAILY 06/16/17 [History] Past Medical History HEENT History: Reports: Cataract Other HEENT History: 2015. Cardiovascular History: Reports: Afib, Arrhythmia, Bypass, CAD, Heart Failure, Hypertension, [place], SOB on Exertion Other Cardiovascular History: COPD Respiratory History: Reports: COPD, Pneumonia, Recurrent, Pulmonary Fibrosis, SOB Other Respiratory History: Wears home O2 from 3L- 5L Gastrointestinal History: Reports: None Other Gastrointestinal History: constipation at times and takes prune juice for this, history of abdominal anyerysm Genitourinary History: Reports: Retention, Urinary Musculoskeletal History: Reports: Arthritis, Back Pain, Chronic Other Musculoskeletal History: started pt last week for left shoulder soreness. 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 - Past Surgical History HEENT Surgical History: Reports: None Cardiovascular Surgical History: Reports: Carotid Endarterectomy, Carotid Stents , Coronary Artery Bypass, Coronary Artery Stent Musculoskeletal Surgical History: Reports: Carpal Tunnel Social & Family History - Family History HEENT: Reports: Glaucoma Cardiac: Reports: Hypertension, Other (See Below) Other Cardiac Family History: strokes and heart attacks GI: Reports: Diverticulitis OBGYN: Reports: None Musculoskeletal: Reports: Arthritis Neurological: Reports: CVA Psychiatric: Reports: Depression Endocrine/Metabolic: Reports: Diabetes, type II Oncologic: Reports: Breast Other Oncologic Family History: mother - Tobacco Use Smoking Status *Q: Former Smoker Years of Tobacco use: 50 Packs/Tins Daily: 2 Used Tobacco, but Quit: Yes Month Tobacco Last Used: unk Second Hand Smoke Exposure: No - Caffeine Use Caffeine Use: Reports: Coffee Caffeine Use Comment: "cup or two of coffee a day" - Alcohol Use Days Per Week of Alcohol Use: 1 Number of Drinks Per Day: 3 Total Drinks Per Week: 3 - Recreational Drug Use Recreational Drug Use: No - Living Situation & Occupation Living situation: Reports: , with Spouse Occupation: Retired ED ROS GENERAL - Review of Systems Review Of Systems: See Below Constitutional: Reports: No Symptoms HEENT: Reports: Other (Congested) Respiratory: Reports: Shortness of Breath, Cough Cardiovascular: Reports: Chest Pain (Pressure that has gotten better) Endocrine: Reports: No Symptoms GI/Abdominal: Reports: No Symptoms : Reports: No Symptoms Musculoskeletal: Reports: No Symptoms Skin: Reports: No Symptoms Neurological: Reports: No Symptoms ED EXAM, GENERAL - Physical Exam Exam: See Below Exam Limited By: No Limitations General Appearance: Alert, No Apparent Distress, Moderate Distress Ears: Normal External Exam Nose: Normal Inspection Head: Atraumatic, Normocephalic Neck: Normal Inspection Respiratory/Chest: Respiratory Distress (Moderate), Decreased Breath Sounds, Rhonchi, Wheezing Cardiovascular: No Edema, No Murmur, Tachycardia GI/Abdominal: Soft, Non-Tender, No Organomegaly, No Mass Back Exam: Normal Inspection Extremities: Normal Inspection EKG INTERPRETATION EKG Date: 06/16/17 Time: 08:40 Rhythm: Other (Sinus tachycardia) Rate (Beats/Min): 116 Milligan: Normal P-Wave: Present QRS: Normal ST-T: Depressed Course - Vital Signs Last Recorded V/S: Last Vital Signs Temp 97.6 F 06/16/17 08:36 Pulse 145 H 06/16/17 08:36 Resp 24 H 06/16/17 08:36 BP 129/63 06/16/17 08:36 Pulse Ox 89 L 06/16/17 09:48 - Orders/Labs/Meds Orders: Active Orders 24 hr Category Date Time Status Cardiac Monitoring [RC] . DIRECTED Care 06/16/17 08:39 Active EKG Documentation Completion [RC] STAT Care 06/16/17 08:40 Active Oxygen Therapy [RC] PRN Care 06/16/17 08:39 Active Peripheral IV Care [RC] . DIRECTED Care 06/16/17 08:40 Active RT Aerosol Therapy [RC] ASDIRECTED Care 06/16/17 08:40 Active RT Aerosol Therapy [RC] ASDIRECTED Care 06/16/17 09:28 Active Azithromycin [Zithromax] 500 mg Med 06/16/17 10:24 Ordered Sodium Chloride 0.9% [Normal Saline] 250 ml IV ONETIME Magnesium Sulfate/Water [Magnesium Sulfate 2 GM in Med 06/16/17 08:41 Active Water 50 ML] 2 gm Premix Bag 1 bag IV ONETIME Sodium Chloride 0.9% [Saline Flush] Med 06/16/17 08:39 Active 10 ml FLUSH ASDIRECTED PRN BiPAP [RESPCARE] Routine Oth 06/16/17 08:41 Active Peripheral IV Insertion Adult [OM.PC] Stat Oth 06/16/17 08:39 Ordered Medication Orders Magnesium Sulfate 2 gm/ Premix 50 mls @ 25 mls/hr IV ONETIME ONE Stop: 06/16/17 10:40 Last Admin: 06/16/17 09:06 Dose: 25 mls/hr Azithromycin 500 mg/ Sodium (Chloride) 250 mls @ 250 mls/hr IV ONETIME ONE Stop: 06/16/17 11:23 Sodium Chloride (Saline Flush) 10 ml FLUSH ASDIRECTED PRN PRN Reason: Keep Vein Open Last Admin: 06/16/17 09:08 Dose: 10 ml Labs: Laboratory Tests 06/16/17 06/16/17 06/16/17 Range/Units 09:05 09:05 09:05 WBC 15.85 H (4.23-9.07) K/mm3 RBC 5.28 (4.63-6.08) M/mm3 Hgb 15.1 (13.7-17.5) gm/L Hct 45.8 (40.1-51.0) % MCV 86.7 (79.0-92.2) fl MCH 28.6 (25.7-32.2) pg MCHC 33.0 (32.2-35.5) g/dl RDW Std Deviation 48.3 H (35.1-43.9) fL Plt Count 260 (163-337) K/mm3 MPV 9.0 L (9.4-12.3) fl Neut % (Auto) 83.6 H (34.0-67.9) % Lymph % (Auto) 9.2 L (21.8-53.1) % [place] % (Auto) 6.6 (5.3-12.2) % Eos % (Auto) 0.2 L (0.8-7.0) Baso % (Auto) 0.1 (0.1-1.2) % Neut # (Auto) 13.27 H (1.78-5.38) K/mm3 Lymph # (Auto) 1.46 (1.32-3.57) K/mm3 [place] # (Auto) 1.04 H (0.30-0.82) K/mm3 Eos # (Auto) 0.03 L (0.04-0.54) K/mm3 Baso # (Auto) 0.01 (0.01-0.08) K/mm3 Manual Slide Review Abnormal smear Puncture Site ABG pH (7.35-7.45) ABG pCO2 (35.0-45.0) mmHg ABG pO2 (80.0-100.0) mmHg ABG HCO3 (22.0-26.0) meq/L ABG O2 Saturation (96.0-97.0) % ABG Base Excess (-2-2.0) Jamey Test A-a Gradient mmHg O2 Delivery Device Oxygen Flow Rate FiO2 (21.00-100.00) % Sodium 137 (136-145) mEq/L Potassium 4.2 (3.5-5.1) mEq/L Chloride 100 (98-107) mEq/L Carbon Dioxide 23 (21-32) mEq/L Anion Gap 18.2 H (5-15) BUN 31 H (7-18) mg/dL Creatinine 1.5 H (0.7-1.3) mg/dL Est Cr Clr Drug Dosing 34.02 mL/min Estimated GFR (MDRD) 45 (>60) mL/min BUN/Creatinine Ratio 20.7 H (14-18) Glucose 127 H (83-115) mg/dL Calcium 9.9 (8.5-10.1) mg/dL Total Bilirubin 1.2 H (0.2-1.0) mg/dL AST 32 (15-37) U/L ALT 31 (16-63) U/L Alkaline Phosphatase 81 (46-116) U/L Troponin I < 0.017 (0.00-0.056) ng/mL NT-Pro-B Natriuret Pep 1180 H (0-450) pg/mL Total Protein 8.0 (6.4-8.2) g/dl Albumin 3.2 L (3.4-5.0) g/dl Globulin 4.8 gm/dL Albumin/Globulin Ratio 0.7 L (1-2) 06/16/17 Range/Units 09:45 WBC (4.23-9.07) K/mm3 RBC (4.63-6.08) M/mm3 Hgb (13.7-17.5) gm/L Hct (40.1-51.0) % MCV (79.0-92.2) fl MCH (25.7-32.2) pg MCHC (32.2-35.5) g/dl RDW Std Deviation (35.1-43.9) fL Plt Count (163-337) K/mm3 MPV (9.4-12.3) fl Neut % (Auto) (34.0-67.9) % Lymph % (Auto) (21.8-53.1) % [place] % (Auto) (5.3-12.2) % Eos % (Auto) (0.8-7.0) Baso % (Auto) (0.1-1.2) % Neut # (Auto) (1.78-5.38) K/mm3 Lymph # (Auto) (1.32-3.57) K/mm3 [place] # (Auto) (0.30-0.82) K/mm3 Eos # (Auto) (0.04-0.54) K/mm3 Baso # (Auto) (0.01-0.08) K/mm3 Manual Slide Review Puncture Site Lt radial ABG pH 7.43 (7.35-7.45) ABG pCO2 37.6 (35.0-45.0) mmHg ABG pO2 63.0 L (80.0-100.0) mmHg ABG HCO3 24.5 (22.0-26.0) meq/L ABG O2 Saturation 91.4 L (96.0-97.0) % ABG Base Excess 0.9 (-2-2.0) Jamey Test Positive A-a Gradient 222 mmHg O2 Delivery Device Bipap Oxygen Flow Rate 8.0 FiO2 54.00 (21.00-100.00) % Sodium (136-145) mEq/L Potassium (3.5-5.1) mEq/L Chloride (98-107) mEq/L Carbon Dioxide (21-32) mEq/L Anion Gap (5-15) BUN (7-18) mg/dL Creatinine (0.7-1.3) mg/dL Est Cr Clr Drug Dosing mL/min Estimated GFR (MDRD) (>60) mL/min BUN/Creatinine Ratio (14-18) Glucose (83-115) mg/dL Calcium (8.5-10.1) mg/dL Total Bilirubin (0.2-1.0) mg/dL AST (15-37) U/L ALT (16-63) U/L Alkaline Phosphatase (46-116) U/L Troponin I (0.00-0.056) ng/mL NT-Pro-B Natriuret Pep (0-450) pg/mL Total Protein (6.4-8.2) g/dl Albumin (3.4-5.0) g/dl Globulin gm/dL Albumin/Globulin Ratio (1-2) Meds: Medications Generic Name Dose Route Start Last Admin Trade Name Freq PRN Reason Stop Dose Admin Magnesium Sulfate 2 gm/ Premix 50 mls @ 25 mls/hr 06/16/17 08:41 06/16/17 09: 06 IV 06/16/17 10:40 25 mls/hr ONETIME ONE Administration Azithromycin 500 mg/ Sodium 250 mls @ 250 mls/hr 06/16/17 10:24 Chloride IV 06/16/17 11:23 ONETIME ONE Sodium Chloride 10 ml 06/16/17 08:39 06/16/17 09:08 Saline Flush FLUSH 10 ml ASDIRECTED PRN Administration Keep Vein Open Discontinued Medications Generic Name Dose Route Start Last Admin Trade Name Freq PRN Reason Stop Dose Admin Albuterol/Ipratropium 3 ml 06/16/17 08:40 06/16/17 08:53 Duoneb 3.0-0.5 Mg/3 Ml NEB 06/16/17 08:41 3 ml ONETIME ONE Administration Albuterol/Ipratropium 3 ml 06/16/17 09:28 06/16/17 09:37 Duoneb 3.0-0.5 Mg/3 Ml NEB 06/16/17 09:29 3 ml ONETIME ONE Administration Methylprednisolone Sodium Succinate 125 mg 06/16/17 08:41 06/16/17 09:04 Solu-Medrol IVPUSH 06/16/17 08:42 125 mg ONETIME ONE Administration - Re-Assessments/Exams Free Text/Narrative Re-Assessment/Exam: 06/16/17 09:43 My nurse put the patient on oxygen right away. I also ordered bipap, EKG, CXR, labs, duoneb, solu-medrol and magnesium. His EKG shows a sinus tachycardia with some ST depression. His oxygen saturations were hovering around the 90s. I ordered another duoneb and an ABG. 06/16/17 10:26 His WBC was elevated at 15.85. His creatinine was elevated at 1.5. His glucose was elevated at 127. His troponin was negative. His BNP was 1180. His ABG shows a low pO2 of 63, pH of 7.43, pCO2 of 37.6, O2 saturation of 91%. He is feeling a little better. His CXR shows interstitial change which appears without significant change from prior exam compatible with diffuse fibrosis, stable cardiomegaly, nothing acute is definitely appreciated. He has a high WBC. This could be from stress or early bronchitis or pneumonia. I ordered some azithromycin IV. I talked with Dr Newell and he agreed to the admission for COPD exacerbation. Departure - Departure Time of Disposition: 10:35 Disposition: Admitted As Inpatient 68 Condition: Poor Clinical Impression: COPD exacerbation, Hypoxia Chest pain Qualifiers: Chest pain type: chest pain on breathing Qualified Code(s): R07.1 - Chest pain on breathing - Discharge Information Referrals: William Buchanan MD [Primary Care Provider] - Forms: ED Department Discharge - My Orders Last 24 Hours: My Active Orders 06/16/17 08:39 Cardiac Monitoring [RC] . DIRECTED Oxygen Therapy [RC] PRN Sodium Chloride 0.9% [Saline Flush] 10 ml FLUSH ASDIRECTED PRN Peripheral IV Insertion Adult [OM.PC] Stat 06/16/17 08:40 EKG Documentation Completion [RC] STAT Peripheral IV Care [RC] . DIRECTED RT Aerosol Therapy [RC] ASDIRECTED 06/16/17 08:41 Magnesium Sulfate/Water [Magnesium Sulfate 2 GM in Water 50 ML] 2 gm Premix Bag 1 bag IV ONETIME BiPAP [RESPCARE] Routine 06/16/17 09:28 RT Aerosol Therapy [RC] ASDIRECTED 06/16/17 10:24 Azithromycin [Zithromax] 500 mg Sodium Chloride 0.9% [Normal Saline] 250 ml IV ONETIME - Assessment/Plan Last 24 Hours: My Active Orders 06/16/17 08:39 Cardiac Monitoring [RC] . DIRECTED Oxygen Therapy [RC] PRN Sodium Chloride 0.9% [Saline Flush] 10 ml FLUSH ASDIRECTED PRN Peripheral IV Insertion Adult [OM.PC] Stat 06/16/17 08:40 EKG Documentation Completion [RC] STAT Peripheral IV Care [RC] . DIRECTED RT Aerosol Therapy [RC] ASDIRECTED 06/16/17 08:41 Magnesium Sulfate/Water [Magnesium Sulfate 2 GM in Water 50 ML] 2 gm Premix Bag 1 bag IV ONETIME BiPAP [RESPCARE] Routine 06/16/17 09:28 RT Aerosol Therapy [RC] ASDIRECTED 06/16/17 10:24 Azithromycin [Zithromax] 500 mg Sodium Chloride 0.9% [Normal Saline] 250 ml IV ONETIME
--- NOTE | 2017-06-16 09:48 | CR ---
Chest: Portable view of the chest is obtained. Comparison: Previous chest x-ray of 10/23/16. Heart is enlarged. Diffuse interstitial changes are seen which appear to be fairly stable from prior exam. No definite acute change is seen. Sternotomy wires are noted. Bony structures are osteopenic. Impression: 1. Interstitial change which appears without significant change from prior exam compatible with diffuse fibrosis. 2. Stable cardiomegaly. 3. Nothing acute is definitely appreciated. Diagnostic code #3
[2017-06-16] MEDS ORDERED: Azithromycin 500 MG in Sodium Chloride 0.9% 250 ML IV ONE (10:24)
[2017-06-16] MEDS ORDERED: Furosemide 40 MG/4 ML VIAL IVPUSH ONE (10:37)
[2017-06-16] MEDS ORDERED: Docusate Sodium 100 MG Cap PO PRN (11:41)
[2017-06-16] MEDS ORDERED: Acetaminophen 325 MG Tab PO PRN (11:41)
[2017-06-16] MEDS ORDERED: LORazepam 2 MG/ML MDV IV PRN (11:41)
[2017-06-16] MEDS ORDERED: HYDROmorphone 0.5 MG/0.5 ML Syringe IVPUSH PRN (11:41)
[2017-06-16] MEDS ORDERED: Ondansetron 4 MG/2 ML SDV IV PRN (11:41)
[2017-06-16] MEDS ORDERED: Acetaminophen/HYDROcodone 325-5 MG Tab PO PRN (11:41)
[2017-06-16] MEDS ORDERED: Promethazine 12.5 MG in Sodium Chloride 0.9% 50 ML IV PRN (11:41)
[2017-06-16] MEDS ORDERED: Polyethylene Glycol 3350 Powder 17 GM Packet PO PRN (11:41)
[2017-06-16] MEDS ORDERED: Bisacodyl 5 MG Tab PO PRN (11:41)
[2017-06-16] MEDS ORDERED: Nitroglycerin 0.4 MG Tab.SL SL PRN (11:53)
[2017-06-16] MEDS: Albuterol/Ipratropium 3.0-0.5 MG/3 ML Neb Soln NEB SCH ×2 (15:41→20:53)
[2017-06-16] MEDS: methylPREDNISolone Sodium Succinate 40 MG/1 ML SDV IVPUSH SCH (16:33)
--- NOTE | 2017-06-16 16:33 | PCM.HP ---
H&P History of Present Illness - General Date of Service: 06/16/17 Admit Problem/Dx: Admission Diagnosis/Problem Admission Diagnosis/Problem COPD, Severe chronic obstructive pulmonary disease Source of Information: Patient, Family, Old Records, Provider, RN Notes Reviewed History Limitations: Reports: Respiratory Distress - History of Present Illness Initial Comments - Free Text/Narative: This is an 82 yo elderly white male with past medical hx/o Atrial Fibrillation, on ASA only, CAD S/p CABG, HF with Reduced EF of 45-50% and Regional Wall Motion Abnormality 08/02/2015, MVR, HTN, Pulmonary Fibrosis, Constipation, Urinary Retention, OA/DJD, CTS, Hx/o Recurrent PNA, Hx/o TIA, and HOMERO who comes in with complaints of worsening shortness of breath that started last night. Patient carries a history of advanced COPD and chronic respiratory failure. He usually on 5L nasal cannula for supplemental O2. Patient reports being congested lately and having more cough than usual. He also reports some chest pressure but seemed to have improved since receiving initial treatment in the emergency department. His symptom is aggravated by activity. His initial workup in emergency department shows a CBC remarkable for WBC of 15.85, neutrophils of 73.6%, lymphocytes of 9.2%, and eosinophils of 0.2%. His ABG shows a pH of 7.43, PCO2 of 37.6, PO2 of 63, bicarbonate of 24.5, and O2 sat of 91.4% on BiPAP with FiO2 of 54. His chemistry is remarkable for anion gap of 18.2%, BUN of 31, creatinine of 1.5, glucose of 127, total bilirubin of 1.2, proBNP of 1180, and albumin of 2.2. His chest x-ray report reads nothing acute is definitely appreciated. Patient is being admitted for acute on chronic respiratory failure and COPD exacerbation. He is DNR/DNI. Middle Chest Pain Score (Numeric/FACES): 5 - Related Data Allergies/Adverse Reactions: Allergies Allergy/AdvReac Type Severity Reaction Status Date / Time morphine Allergy Rash Verified 06/16/17 08:41 Home Medications: Home Meds Ascorbic Acid [Vitamin C] 500 mg PO DAILY 08/16/16 [History] Aspirin 81 mg PO BEDTIME 08/16/16 [History] Diflucan Oral 125 mcg PO DAILY PRN 08/16/16 [History] Diltiazem [Cardizem CD] 120 mg PO BID 08/16/16 [History] Flunisolide [Aerospan] 2 spray NASBOTH DAILY 08/16/16 [History] Fluticasone/Salmeterol [Advair 250-50 Diskus] 1 puff INH BID 08/16/16 [History] Folic Acid 800 mcg PO DAILY 08/16/16 [History] Furosemide [Lasix] 20 mg PO BID 08/16/16 [History] Multivitamin [Multivitamins] 1 tab PO DAILY 08/16/16 [History] Nitroglycerin [Nitrostat] 0.4 mg SL Q5M PRN 08/16/16 [History] Omeprazole 20 mg PO DAILY 08/16/16 [History] Spironolactone [Aldactone] 25 mg PO DAILY 08/16/16 [History] guaiFENesin [Mucinex] 600 mg PO DAILY PRN 08/16/16 [History] Albuterol/Ipratropium [DuoNeb 3.0-0.5 MG/3 ML] 3 ml NEB QIDRT #40 neb 09/03/16 [ Rx] Docusate Sodium [Colace] 100 mg PO BID #60 cap 10/26/16 [Rx] Ferrous Sulfate 325 mg PO WITHBREAKFAST #30 tablet 10/26/16 [Rx] Digoxin 250 mcg PO ACLUNCH 06/16/17 [History] Prednisone [IJD: Prednisone] 5 mg PO DAILY 06/16/17 [History] Past Medical History HEENT History: Reports: Cataract Other HEENT History: 2015. Cardiovascular History: Reports: Afib, Aneurysm, Arrhythmia, Bypass, CAD, Heart Failure, Hypertension, NC, SOB on Exertion, Stents Other Cardiovascular History: "aneursym in back". COPD Respiratory History: Reports: COPD, Pneumonia, Recurrent, Pulmonary Fibrosis, SOB Other Respiratory History: Wears home O2 from 3L- 5L , emphysema Gastrointestinal History: Reports: None Other Gastrointestinal History: constipation at times and takes prune juice for this, Genitourinary History: Reports: Retention, Urinary Musculoskeletal History: Reports: Arthritis, Back Pain, Chronic Other Musculoskeletal History: started pt last week for left shoulder soreness. history of carpal tunnel surgery Neurological History: Reports: TIA Psychiatric History: Reports: None Endocrine/Metabolic History: Reports: None Hematologic History: Reports: None Oncologic (Cancer) History: Reports: None Dermatologic History: Reports: None Other Dermatologic History: spots removed - Infectious Disease History Infectious Disease History: Reports: Chicken Pox, Scarlet Fever - Past Surgical History HEENT Surgical History: Reports: Cataract Surgery Cardiovascular Surgical History: Reports: Carotid Endarterectomy, Carotid Stents , Coronary Artery Bypass, Coronary Artery Stent Musculoskeletal Surgical History: Reports: Carpal Tunnel Social & Family History - Family History Family Medical History: Noncontributory HEENT: Reports: Glaucoma Cardiac: Reports: Hypertension, Other (See Below) Other Cardiac Family History: strokes and heart attacks GI: Reports: Diverticulitis OBGYN: Reports: None Musculoskeletal: Reports: Arthritis Neurological: Reports: CVA Psychiatric: Reports: Depression Endocrine/Metabolic: Reports: Diabetes, type II Oncologic: Reports: Breast Other Oncologic Family History: mother - Tobacco Use Smoking Status *Q: Former Smoker Years of Tobacco use: 50 Packs/Tins Daily: 2 Used Tobacco, but Quit: Yes Month Tobacco Last Used: Aug 2003 Second Hand Smoke Exposure: No - Caffeine Use Caffeine Use: Reports: Coffee Caffeine Use Comment: "cup or two of coffee a day" - Alcohol Use Days Per Week of Alcohol Use: 3 Number of Drinks Per Day: 1 Total Drinks Per Week: 3 - Recreational Drug Use Recreational Drug Use: No - Living Situation & Occupation Living situation: Reports: , with Spouse Occupation: Retired H&P Review of Systems - Review of Systems: Review Of Systems: See Below General: Reports: Fatigue. Denies: Fever, Chills, Malaise HEENT: Reports: No Symptoms, Sinus Congestion Pulmonary: Reports: Shortness of Breath, Cough Cardiovascular: Reports: Other (chest pressure) Gastrointestinal: Denies: Abdominal Pain, Nausea, Vomiting Musculoskeletal: Reports: No Symptoms Skin: Denies: Cyanosis, Pallor, Diaphoresis Psychiatric: Denies: Depression, Anxiety, Agitation, Hallucinations Neurological: Denies: Confusion, Difficulty Walking, Weakness, Gait Disturbance Hematologic/Lymphatic: Reports: No Symptoms Immunologic: Reports: No Symptoms Exam - Exam Exam: See Below - Vital Signs Vital Signs: Last Vital Signs Temp 36.2 C 06/16/17 15:05 Pulse 66 06/16/17 15:05 Resp 18 06/16/17 15:05 BP 123/83 06/16/17 15:05 Pulse Ox 94 L 06/16/17 15:47 Weight: 57.198 kg - Exam Quality Assessment: Supplemental Oxygen General: Alert, Oriented, Cooperative, Mild Distress, Other (cachectic) HEENT: Conjunctiva Clear, EACs Clear, EOMI, Hearing Intact, Nares Patent, Normal Nasal Septum, Posterior Pharynx Clear, Pupils Equal, Pupils Reactive. No : Mucosa Moist & [place] Neck: Supple, Trachea Midline, +2 Carotid Pulse wo Bruit, Other (no accessory muscle use) Lungs: Decreased Breath Sounds, Other (Poor aeration). No: Normal Respiratory Effort Cardiovascular: Irregular Rhythm GI/Abdominal Exam: Normal Bowel Sounds, Soft, Non-Tender, No Organomegaly, No Distention, No Abnormal Bruit (Male) Exam: Deferred Rectal (Males) Exam: Deferred Back Exam: Normal Inspection, Decreased Range of Motion Extremities: Normal Inspection, Normal Range of Motion, Non-Tender, No Pedal Edema Peripheral Pulses: 2+: Dorsalis Pedis (L), Dorsalis Pedis (R) Skin: Warm, Dry, Intact Neuro Extensive - Mental Status: Oriented x3, Normal Cognition, Memory Intact Neuro Extensive - Motor, Sensory, Reflexes: CN II-XII Intact, Normal Gait Psychiatric: Alert, Normal Affect, Normal Mood - Patient Data Result Diagrams: 06/16/17 09:05 06/16/17 09:05 Julian Results Last 24 hrs: Microbiology 06/16/17 12:00 Influenza Type A Antigen Screen - Final Nasal, Left NEGATIVE INFLUENZA A VIRUS AG Influenza Type B Antigen Screen - Final NEGATIVE INFLUENZA B VIRUS AG *Q Meaningful Use (ADM) - VTE *Q VTE Criteria *Q: - Stroke *Q Stroke Criteria *Q: - AMI *Q AMI Criteria *Q: Problem List Initiated/Reviewed/Updated: Yes Orders Last 24hrs: Active Orders 24 hr Category Date Time Status Antiembolic Devices [RC] Care 06/16/17 11:45 Active Height and Weight [RC] 04 Care 06/16/17 11:41 Active Intake and Output [RC] ,16 Care 06/16/17 11:43 Active Up ad Sunitha [RC] Care 06/16/17 11:41 Active VTE/DVT Education [RC] Care 06/16/17 11:41 Active Vital Signs [RC] Q4HR Care 06/16/17 11:41 Active Consult to Case Management [CONS] Routine Cons 06/16/17 11:46 Active Consult to A&P Technician [CONS] Routine Cons 06/16/17 11:46 Active Consult to Spiritual Care [CONS] Routine Cons 06/16/17 11:46 Active OT Evaluation and Treatment [CONS] Routine Cons 06/16/17 11:46 Active PT Evaluation and Treatment [CONS] Routine Cons 06/16/17 11:46 Active Respiratory Care Assess and Treatment [CONS] Routine Cons 06/16/17 11:46 Active Heart Healthy Diet [DIET] Diet 06/16/17 Lunch Active Chest 1V Frontal [CR] AM Exams 06/18/17 05:11 Ordered BASIC METABOLIC PANEL,BMP [CHEM] AM Lab 06/17/17 05:11 Ordered BASIC METABOLIC PANEL,BMP [CHEM] AM Lab 06/18/17 05:11 Ordered BASIC METABOLIC PANEL,BMP [CHEM] AM Lab 06/19/17 05:11 Ordered BASIC METABOLIC PANEL,BMP [CHEM] AM Lab 06/20/17 05:11 Ordered CBC WITH AUTO DIFF [HEME] AM Lab 06/17/17 05:11 Ordered CBC WITH AUTO DIFF [HEME] AM Lab 06/18/17 05:11 Ordered CBC WITH AUTO DIFF [HEME] AM Lab 06/19/17 05:11 Ordered CBC WITH AUTO DIFF [HEME] AM Lab 06/20/17 05:11 Ordered MAGNESIUM [CHEM] AM Lab 06/17/17 05:11 Ordered MAGNESIUM [CHEM] AM Lab 06/18/17 05:11 Ordered MAGNESIUM [CHEM] AM Lab 06/19/17 05:11 Ordered MAGNESIUM [CHEM] AM Lab 06/20/17 05:11 Ordered Acetaminophen [Tylenol] Med 06/16/17 11:41 Active 650 mg PO Q4H PRN Acetaminophen/HYDROcodone [Kimball 325-5 MG] Med 06/16/17 11:41 Active 1 tab PO Q4H PRN Albuterol/Ipratropium [DuoNeb 3.0-0.5 MG/3 ML] Med 06/16/17 16:00 Active 3 ml NEB QIDRT Ascorbic Acid [Vitamin C] Med 06/17/17 18:00 Active 500 mg PO QPM Aspirin Med 06/16/17 21:00 Active 81 mg PO BEDTIME Azithromycin [Zithromax] 500 mg Med 06/17/17 09:00 Active Sodium Chloride 0.9% [Normal Saline] 250 ml IV Q24H Bisacodyl [Dulcolax] Med 06/16/17 11:41 Active 5 mg PO DAILY PRN Diflucan Oral Med 06/17/17 09:00 Pending 125 mcg PO DAILY Diltiazem [Cardizem CD] Med 06/16/17 21:00 Active 120 mg PO BID Docusate Sodium [Colace] Med 06/16/17 21:00 Active 100 mg PO BID Docusate Sodium [Colace] Med 06/16/17 11:41 Active 100 mg PO BID PRN Docusate Sodium/Sennosides [Senna Plus] Med 06/16/17 11:41 Active 1 tab PO BID PRN Ferrous Sulfate Med 06/17/17 07:00 Active 325 mg PO WITHBREAKFAST Flunisolide [Nasalide Nasal [place]] Med 06/17/17 09:00 Active 0 ml NASBOTH DAILY Folic Acid Med 06/17/17 18:00 Active 1 mg PO QPM Furosemide [Lasix] Med 06/16/17 21:00 Active 20 mg PO BID HYDROmorphone [Dilaudid] Med 06/16/17 11:41 Active 0.25 mg IVPUSH Q2H PRN LORazepam [Ativan] Med 06/16/17 11:41 Active 0.25 mg IV Q6H PRN Mometasone/Formoterol [Dulera 200-5 MCG] Med 06/16/17 21:00 Active 1 puff IH BID Multivitamins,Therapeutic [Thera] Med 06/17/17 18:00 Active 1 each PO QPM Nitroglycerin [Nitrostat] Med 06/16/17 11:53 Active 0.4 mg SL Q5M PRN Ondansetron [Zofran] Med 06/16/17 11:41 Active 4 mg IV Q6H PRN Pantoprazole [ProTONIX] Med 06/17/17 07:00 Active 40 mg PO DAILY@0700 Polyethylene Glycol 3350 [MiraLAX] Med 06/16/17 11:41 Active 17 gm PO DAILY PRN Promethazine [Phenergan] 12.5 mg Med 06/16/17 11:41 Active Sodium Chloride 0.9% [Normal Saline] 50 ml IV Q6H Spironolactone [Aldactone] Med 06/17/17 09:00 Active 25 mg PO DAILY Temazepam [Restoril] Med 06/16/17 11:41 Active 7.5 mg PO BEDTIME PRN guaiFENesin [Mucinex] Med 06/16/17 11:53 Active 600 mg PO DAILY PRN methylPREDNISolone Sod Succ [Solu-MEDROL] Med 06/16/17 17:00 Active 60 mg IVPUSH Q8H Sequential Compression Device [OM.PC] Per Unit Routine Oth 06/16/17 11:44 Ordered Resuscitation Status Routine Resus Stat 06/16/17 11:41 Ordered Medication Orders Acetaminophen (Tylenol) 650 mg PO Q4H PRN PRN Reason: Pain (Mild 1-3)/fever Hydrocodone Bitart/Acetaminophen ([place] 325-5 Mg) 1 tab PO Q4H PRN PRN Reason: Pain (moderate 4-6) Albuterol/Ipratropium (Duoneb 3.0-0.5 Mg/3 Ml) 3 ml NEB QIDRT [facility] Last Admin: 06/16/17 15:41 Dose: 3 ml Ascorbic Acid (Vitamin C) 500 mg PO QPM [facility] Aspirin (Aspirin) 81 mg PO BEDTIME [facility] Bisacodyl (Dulcolax) 5 mg PO DAILY PRN PRN Reason: Constipation Diltiazem HCl (Cardizem Cd) 120 mg PO BID [facility] Docusate Sodium (Colace) 100 mg PO BID PRN PRN Reason: Constipation Docusate Sodium (Colace) 100 mg PO BID [facility] Ferrous Sulfate (Ferrous Sulfate) 325 mg PO WITHBREAKFAST [facility] Flunisolide (Nasalide Nasal [place]) 0 ml NASBOTH DAILY [facility] Folic Acid (Folic Acid) 1 mg PO QPM [facility] Furosemide (Lasix) 20 mg PO BID [facility] Guaifenesin (Mucinex) 600 mg PO DAILY PRN PRN Reason: Congestion Hydromorphone HCl (Dilaudid) 0.25 mg IVPUSH Q2H PRN PRN Reason: Pain (severe 7-10) Promethazine HCl 12.5 mg/ (Sodium Chloride) 50.5 mls @ 100 mls/hr IV Q6H PRN PRN Reason: Nausea/Vomiting Azithromycin 500 mg/ Sodium (Chloride) 250 mls @ 250 mls/hr IV Q24H [facility] Lorazepam (Ativan) 0.25 mg IV Q6H PRN PRN Reason: Anxiety Methylprednisolone Sodium Succinate (Solu-Medrol) 60 mg IVPUSH Q8H [facility] Mometasone Furoate/Formoterol Fumar (Dulera 200-5 Mcg) 1 puff IH BID [facility] Multivitamins (Thera) 1 each PO QPM [facility] Nitroglycerin (Nitrostat) 0.4 mg SL Q5M PRN PRN Reason: Chest Pain Non-Formulary Medication (Diflucan Oral) 125 mcg PO DAILY [facility] Ondansetron HCl (Zofran) 4 mg IV Q6H PRN PRN Reason: Nausea/Vomiting Pantoprazole Sodium (Protonix) 40 mg PO DAILY@0700 [facility] Polyethylene Glycol (Miralax) 17 gm PO DAILY PRN PRN Reason: Constipation Senna/Docusate Sodium (Senna Plus) 1 tab PO BID PRN PRN Reason: Constipation Sodium Chloride (Saline Flush) 10 ml FLUSH ASDIRECTED PRN PRN Reason: Keep Vein Open Last Admin: 06/16/17 09:08 Dose: 10 ml Spironolactone (Aldactone) 25 mg PO DAILY [facility] Temazepam (Restoril) 7.5 mg PO BEDTIME PRN PRN Reason: Sleep Assessment/Plan Comment:: Assessment/Plan: Acute: Respiratory Failure - Acute on Chronic - He carries advanced/end stage COPD and Pulmonary Fibrosis - Baseline supplemental O2 is 5L NC, he was on 3L back in 08/16/16 - He is currently on 6 L NC, will switch to face mask to improve O2 intake - His ABG shows low PO2 and normal CO2 - He was put on BIPAP in ED - He is allergic to Morphine - PRN NIPPV and supplemental O2 - Maintain O2 at 88-89% COPD Exacerbation - Acute on Chronic - IV Steroids, Bronchodilators, IV/PO Magnesium, IV Azithromycin, RT Care - Supplemental O2 and Supportive Care Consider End of Life Care - Patient has Significant Cardiac and Lung Co-morbidities - He is end stage COPD - Patient would benefit with hospice care Chronic: Atrial Fibrillation, on ASA only CAD S/p CABG HF with Reduced EF of 45-50% and Regional Wall Motion Abnormality 08/02/2015 MVR HTN Advanced COPD Pulmonary Fibrosis Constipation Urinary Retention OA/DJD Cachexia CTS Hx/o Recurrent PNA Hx/o TIA HOMERO Plan: Admit to Med-Surg with Tele Routine AM labs Resume Home Meds PT/OT/RT consult CM/SW for d/c planning Additional orders as above Code status: DNR/DNI
[2017-06-16] MEDS: Docusate Sodium 100 MG Cap PO SCH (20:32)
[2017-06-16] MEDS: Furosemide 20 MG Tab PO SCH (20:33)
[2017-06-16] MEDS: Diltiazem 120 MG Cap.CD PO SCH (20:33)
[2017-06-16] MEDS: Aspirin 81 MG Tab.Chew PO SCH (20:33)
[2017-06-16] MEDS: Temazepam 7.5 MG Cap PO PRN (20:33)
[2017-06-16] MEDS: Magnesium Oxide 400 MG Tab PO SCH (20:33)
[2017-06-16] MEDS: Formoterol/Mometasone 200-5 MCG 8.8 GM Inhaler IH SCH (20:53)
[2017-06-17] MEDS: methylPREDNISolone Sodium Succinate 40 MG/1 ML SDV IVPUSH SCH ×3 (02:00→17:08)
[2017-06-17] MEDS: Albuterol/Ipratropium 3.0-0.5 MG/3 ML Neb Soln NEB SCH ×4 (06:09→20:32)
[2017-06-17] MEDS: Ferrous Sulfate 325 MG Tab PO SCH (06:29)
[2017-06-17] MEDS: Pantoprazole 40 MG Tab.CR PO SCH (06:29)
[2017-06-17] MEDS: Furosemide 20 MG Tab PO SCH ×2 (08:51→20:28)
[2017-06-17] MEDS: Docusate Sodium 100 MG Cap PO SCH ×2 (08:51→20:20)
[2017-06-17] MEDS: Spironolactone 25 MG Tab PO SCH (08:51)
[2017-06-17] MEDS: Diltiazem 120 MG Cap.CD PO SCH ×2 (08:51→20:25)
[2017-06-17] MEDS: Magnesium Oxide 400 MG Tab PO SCH (08:51)
[2017-06-17] MEDS: Azithromycin 500 MG in Sodium Chloride 0.9% 250 ML IV SCH (08:54)
[2017-06-17] MEDS ORDERED: DIFLUCAN PO SCH (09:00)
[2017-06-17] MEDS: Formoterol/Mometasone 200-5 MCG 8.8 GM Inhaler IH SCH ×2 (09:43→20:32)
[2017-06-17] MEDS: Digoxin 250 MCG Tab PO SCH (11:13)
--- NOTE | 2017-06-17 12:03 | PCM.PN ---
- General Info Date of Service: 06/17/17 Admission Dx/Problem (Free Text): Admission Diagnosis/Problem Admission Diagnosis/Problem COPD, Severe chronic obstructive pulmonary disease Moshe is seen this morning; states feels slightly better this morning, less SOB with exertion and "doesn't take me as long to recover". Coughing is "about the same". Good appetite, states "I ate a really good breakfast". Voiding and moving bowels without problems. Ambulated with PT this am. Functional Status: Reports: Pain Controlled, Tolerating Diet, Ambulating, Urinating, Incentive Spirometry. Denies: New Symptoms - Review of Systems General: Reports: Weakness. Denies: Fever HEENT: Reports: No Symptoms Pulmonary: Reports: Shortness of Breath, Cough, Sputum, Wheezing Cardiovascular: Reports: Dyspnea on Exertion (slight improved) Gastrointestinal: Reports: No Symptoms Genitourinary: Reports: No Symptoms Neurological: Reports: No Symptoms - Patient Data Vitals - Most Recent: Last Vital Signs Temp 97.0 F 06/17/17 03:32 Pulse 80 06/17/17 11:13 Resp 20 06/17/17 11:23 BP 107/53 L 06/17/17 08:51 Pulse Ox 92 L 06/17/17 09:43 Weight - Most Recent: 126 lb 3.2 oz I&O - Last 24 Hours: Intake & Output 06/16/17 06/17/17 06/17/17 22:59 06:59 14:59 Intake Total 500 450 540 Output Total 350 400 Balance 150 50 540 Lab Results Last 24 Hours: Laboratory Results - last 24 hr 06/17/17 06/17/17 06/17/17 Range/Units 06:05 06:05 06:05 WBC 15.60 H (4.23-9.07) K/mm3 RBC 4.48 L (4.63-6.08) M/mm3 Hgb 13.0 L (13.7-17.5) gm/L Hct 38.8 L (40.1-51.0) % MCV 86.6 (79.0-92.2) fl MCH 29.0 (25.7-32.2) pg MCHC 33.5 (32.2-35.5) g/dl RDW Std Deviation 48.0 H (35.1-43.9) fL Plt Count 242 (163-337) K/mm3 MPV 9.2 L (9.4-12.3) fl Neut % (Auto) 92.9 H (34.0-67.9) % Lymph % (Auto) 5.0 L (21.8-53.1) % [place] % (Auto) 1.9 L (5.3-12.2) % Eos % (Auto) 0 L (0.8-7.0) Baso % (Auto) 0.0 L (0.1-1.2) % Neut # (Auto) 14.49 H (1.78-5.38) K/mm3 Lymph # (Auto) 0.78 L (1.32-3.57) K/mm3 [place] # (Auto) 0.30 (0.30-0.82) K/mm3 Eos # (Auto) 0.00 L (0.04-0.54) K/mm3 Baso # (Auto) 0.00 L (0.01-0.08) K/mm3 Manual Slide Review Abnormal smear Sodium 139 (136-145) mEq/L Potassium 4.2 (3.5-5.1) mEq/L Chloride 102 (98-107) mEq/L Carbon Dioxide 24 (21-32) mEq/L Anion Gap 17.2 H (5-15) BUN 50 H (7-18) mg/dL Creatinine 1.5 H (0.7-1.3) mg/dL Est Cr Clr Drug Dosing 31.80 mL/min Estimated GFR (MDRD) 45 (>60) mL/min BUN/Creatinine Ratio 33.3 H (14-18) Glucose 155 H (83-115) mg/dL Calcium 9.3 (8.5-10.1) mg/dL Magnesium 2.7 H (1.8-2.4) mg/dl Mycoplasma pneumon IgM Negative (NEGATIVE) Julian Results Last 24 Hours: Microbiology 06/16/17 12:00 Influenza Type A Antigen Screen - Final Nasal, Left NEGATIVE INFLUENZA A VIRUS AG Influenza Type B Antigen Screen - Final NEGATIVE INFLUENZA B VIRUS AG Med Orders - Current: Current Medications Acetaminophen (Tylenol) 650 mg PO Q4H PRN PRN Reason: Pain (Mild 1-3)/fever Hydrocodone Bitart/Acetaminophen ([place] 325-5 Mg) 1 tab PO Q4H PRN PRN Reason: Pain (moderate 4-6) Albuterol/Ipratropium (Duoneb 3.0-0.5 Mg/3 Ml) 3 ml NEB QIDRT [facility] Last Admin: 06/17/17 09:42 Dose: 3 ml Ascorbic Acid (Vitamin C) 500 mg PO QPM [facility] Aspirin (Aspirin) 81 mg PO BEDTIME [facility] Last Admin: 06/16/17 20:33 Dose: 81 mg Bisacodyl (Dulcolax) 5 mg PO DAILY PRN PRN Reason: Constipation Digoxin (Lanoxin) 250 mcg PO ACLUNCH [facility] Last Admin: 06/17/17 11:13 Dose: 250 mcg Diltiazem HCl (Cardizem Cd) 120 mg PO BID [facility] Last Admin: 06/17/17 08:51 Dose: 120 mg Docusate Sodium (Colace) 100 mg PO BID PRN PRN Reason: Constipation Docusate Sodium (Colace) 100 mg PO BID [facility] Last Admin: 06/17/17 08:51 Dose: 100 mg Ferrous Sulfate (Ferrous Sulfate) 325 mg PO WITHBREAKFAST [facility] Last Admin: 06/17/17 06:29 Dose: 325 mg Flunisolide (Nasalide Nasal [place]) 0 ml NASBOTH DAILY [facility] Last Admin: 06/17/17 08:50 Dose: 2 spray Folic Acid (Folic Acid) 1 mg PO QPM [facility] Furosemide (Lasix) 20 mg PO BID [facility] Last Admin: 06/17/17 08:51 Dose: 20 mg Guaifenesin (Mucinex) 600 mg PO DAILY PRN PRN Reason: Congestion Hydromorphone HCl (Dilaudid) 0.25 mg IVPUSH Q2H PRN PRN Reason: Pain (severe 7-10) Promethazine HCl 12.5 mg/ (Sodium Chloride) 50.5 mls @ 100 mls/hr IV Q6H PRN PRN Reason: Nausea/Vomiting Azithromycin 500 mg/ Sodium (Chloride) 250 mls @ 250 mls/hr IV Q24H [facility] Last Admin: 06/17/17 08:54 Dose: 250 mls/hr Lorazepam (Ativan) 0.25 mg IV Q6H PRN PRN Reason: Anxiety Magnesium Oxide (Magnesium Oxide) 400 mg PO BID [facility] Methylprednisolone Sodium Succinate (Solu-Medrol) 60 mg IVPUSH Q8H [facility] Last Admin: 06/17/17 08:51 Dose: 60 mg Mometasone Furoate/Formoterol Fumar (Dulera 200-5 Mcg) 1 puff IH BID [facility] Last Admin: 06/17/17 09:43 Dose: 1 puff Multivitamins (Thera) 1 each PO QPM [facility] Nitroglycerin (Nitrostat) 0.4 mg SL Q5M PRN PRN Reason: Chest Pain Ondansetron HCl (Zofran) 4 mg IV Q6H PRN PRN Reason: Nausea/Vomiting Pantoprazole Sodium (Protonix) 40 mg PO DAILY@0700 [facility] Last Admin: 06/17/17 06:29 Dose: 40 mg Polyethylene Glycol (Miralax) 17 gm PO DAILY PRN PRN Reason: Constipation Senna/Docusate Sodium (Senna Plus) 1 tab PO BID PRN PRN Reason: Constipation Sodium Chloride (Saline Flush) 10 ml FLUSH ASDIRECTED PRN PRN Reason: Keep Vein Open Last Admin: 06/16/17 09:08 Dose: 10 ml Spironolactone (Aldactone) 25 mg PO DAILY [facility] Last Admin: 06/17/17 08:51 Dose: 25 mg Temazepam (Restoril) 7.5 mg PO BEDTIME PRN PRN Reason: Sleep Last Admin: 06/16/17 20:33 Dose: 7.5 mg Discontinued Medications Albuterol/Ipratropium (Duoneb 3.0-0.5 Mg/3 Ml) 3 ml NEB ONETIME ONE Stop: 06/16/17 08:41 Last Admin: 06/16/17 08:53 Dose: 3 ml Albuterol/Ipratropium (Duoneb 3.0-0.5 Mg/3 Ml) 3 ml NEB ONETIME ONE Stop: 06/16/17 09:29 Last Admin: 06/16/17 09:37 Dose: 3 ml Furosemide (Lasix) 40 mg IVPUSH NOW ONE Stop: 06/16/17 10:38 Last Admin: 06/16/17 10:46 Dose: 40 mg Magnesium Sulfate 2 gm/ Premix 50 mls @ 25 mls/hr IV ONETIME ONE Stop: 06/16/17 10:40 Last Admin: 06/16/17 09:06 Dose: 25 mls/hr Azithromycin 500 mg/ Sodium (Chloride) 250 mls @ 250 mls/hr IV ONETIME ONE Stop: 06/16/17 11:23 Last Admin: 06/16/17 10:47 Dose: 250 mls/hr Magnesium Oxide (Magnesium Oxide) 400 mg PO BID [facility] Last Admin: 06/17/17 08:51 Dose: 400 mg Methylprednisolone Sodium Succinate (Solu-Medrol) 125 mg IVPUSH ONETIME ONE Stop: 06/16/17 08:42 Last Admin: 06/16/17 09:04 Dose: 125 mg Non-Formulary Medication (Diflucan Oral) 125 mcg PO DAILY [facility] Last Admin: 06/17/17 10:38 Dose: Not Given - Exam Quality Assessment: Supplemental Oxygen, DVT Prophylaxis General: Alert, Oriented, Cooperative, No Acute Distress HEENT: Pupils Equal, EOMI, Mucous Membr. Moist/[place] Neck: Supple Lungs: Normal Respiratory Effort, Decreased Breath Sounds (throughout but air exchange noted throughout) Cardiovascular: Regular Rate, Regular Rhythm GI/Abdominal Exam: Normal Bowel Sounds, Soft, Non-Tender (Male) Exam: Deferred Extremities: Normal Inspection, No Pedal Edema, Normal Capillary Refill Peripheral Pulses: 1+: Dorsalis Pedis (L), Dorsalis Pedis (R) Neurological: No New Focal Deficit Psy/Mental Status: Alert, Normal Affect, Normal Mood, Other (pleasant/talkative) - Problem List & Annotations (1) COPD exacerbation SNOMED Code(s): 426741754 Code(s): J44.1 - CHRONIC OBSTRUCTIVE PULMONARY DISEASE W (ACUTE) EXACERBATION Status: Acute Priority: High Current Visit: Yes (2) Hypoxia SNOMED Code(s): 807378142 Code(s): R09.02 - HYPOXEMIA Status: Acute Priority: High Current Visit : Yes (3) Supplemental oxygen dependent SNOMED Code(s): 381563970181 Code(s): Z99.81 - DEPENDENCE ON SUPPLEMENTAL OXYGEN Status: Chronic Priority: High Current Visit: Yes - Problem List Review Problem List Initiated/Reviewed/Updated: Yes - My Orders Last 24 Hours: My Active Orders 06/17/17 07:38 Consult to Spray I Painter [CONS] Routine 06/17/17 09:23 STREP PNEUMONIAE ANTIGEN [MREF] Routine - Plan Plan:: Assessment/Plan: Acute: Respiratory Failure - Acute on Chronic - He carries advanced/end stage COPD and Pulmonary Fibrosis - Baseline supplemental O2 is 5L NC, he was on 3L back in 08/16/16 - He is currently on 5 L NC - His ABG shows low PO2 and normal CO2 - He was put on BIPAP in ED but off now - He is allergic to Morphine - PRN NIPPV and supplemental O2 - Maintain O2 at 88-89% COPD Exacerbation - Acute on Chronic - IV Steroids, Bronchodilators, IV/PO Magnesium, IV Azithromycin, RT Care - Supplemental O2 and Supportive Care Consider End of Life Care - Patient has Significant Cardiac and Lung Co-morbidities - He is end stage COPD - Patient would benefit with hospice care Chronic: Atrial Fibrillation, on ASA only CAD S/p CABG HF with Reduced EF of 45-50% and Regional Wall Motion Abnormality 08/02/2015 MVR HTN Advanced COPD Pulmonary Fibrosis Constipation Urinary Retention OA/DJD Cachexia--20lb wt loss since last admission around 6-7 months ago CTS Hx/o Recurrent PNA Hx/o TIA HOMERO Plan: Admit to Med-Surg with Tele Routine AM labs Resume Home Meds PT/OT/RT consult GI/DVT prophylax CM/SW for d/c planning Additional orders as above Code status: DNR/DNI
[2017-06-17] MEDS: Ascorbic Acid 500 MG Tab PO SCH (17:09)
[2017-06-17] MEDS: Multivitamins,Therapeutic Tab PO SCH (17:09)
[2017-06-17] MEDS: Folic Acid 1 MG Tab PO SCH (17:09)
[2017-06-17] MEDS: Aspirin 81 MG Tab.Chew PO SCH (20:26)
[2017-06-17] MEDS: Temazepam 7.5 MG Cap PO PRN (20:29)
[2017-06-18] MEDS: methylPREDNISolone Sodium Succinate 40 MG/1 ML SDV IVPUSH SCH ×3 (01:19→17:00)
[2017-06-18] MEDS: Albuterol/Ipratropium 3.0-0.5 MG/3 ML Neb Soln NEB SCH ×4 (05:51→20:29)
[2017-06-18] MEDS: Pantoprazole 40 MG Tab.CR PO SCH (06:18)
[2017-06-18] MEDS: Ferrous Sulfate 325 MG Tab PO SCH (06:18)
[2017-06-18] MEDS: Azithromycin 500 MG in Sodium Chloride 0.9% 250 ML IV SCH (08:50)
[2017-06-18] MEDS: Furosemide 20 MG Tab PO SCH ×2 (08:52→21:13)
[2017-06-18] MEDS: Docusate Sodium 100 MG Cap PO SCH ×2 (08:52→21:13)
[2017-06-18] MEDS: Spironolactone 25 MG Tab PO SCH (08:53)
[2017-06-18] MEDS: guaiFENesin 600 MG Tab.ER PO PRN (08:53)
--- NOTE | 2017-06-18 08:54 | CR ---
Chest: Portable view of the chest was obtained. Comparison: Prior chest x-ray of 06/16/17. When allowing for differences in technique, no significant change is seen from prior study. No worsening is identified. Heart remains mildly enlarged with sternotomy wires noted. Chronic rotator cuff tear is noted within the left shoulder which is stable. Osteopenia is noted. Impression: 1. Chest appears stable from prior exam. No new abnormality is identified. Diagnostic code #3
[2017-06-18] MEDS: Diltiazem 120 MG Cap.CD PO SCH ×2 (08:56→21:12)
[2017-06-18] MEDS: Formoterol/Mometasone 200-5 MCG 8.8 GM Inhaler IH SCH ×2 (09:10→20:29)
[2017-06-18] MEDS ORDERED: Spironolactone 25 MG Tab PO ONE (09:23)
[2017-06-18] MEDS ORDERED: Bumetanide 1 MG/4 ML MDV IVPUSH ONE (09:24)
--- NOTE | 2017-06-18 09:33 | PCM.PN ---
- General Info Date of Service: 06/18/17 Admission Dx/Problem (Free Text): Admission Diagnosis/Problem Admission Diagnosis/Problem COPD, Severe chronic obstructive pulmonary disease Moshe is seen this morning; states feels slightly better this morning, less SOB with exertion and "doesn't take me as long to recover". Coughing is "about the same". Good appetite. No n/v. Voiding and moving bowels without problems. Working with PT. Hvac Maintenance Technician consult with [employer] supplement ordered/started. Functional Status: Reports: Pain Controlled, Tolerating Diet, Ambulating, Urinating, Incentive Spirometry. Denies: New Symptoms - Review of Systems General: Reports: Weakness HEENT: Reports: No Symptoms Pulmonary: Reports: Shortness of Breath, Cough, Wheezing Cardiovascular: Reports: Dyspnea on Exertion Gastrointestinal: Reports: No Symptoms Genitourinary: Reports: No Symptoms - Patient Data Vitals - Most Recent: Last Vital Signs Temp 97.2 F 06/18/17 03:18 Pulse 114 H 06/18/17 08:56 Resp 16 06/18/17 03:18 BP 128/56 L 06/18/17 08:56 Pulse Ox 95 06/18/17 09:11 Weight - Most Recent: 130 lb 6.4 oz I&O - Last 24 Hours: Intake & Output 06/17/17 06/18/17 06/18/17 22:59 06:59 14:59 Intake Total 1330 400 Output Total 500 450 Balance 830 -50 Lab Results Last 24 Hours: Laboratory Results - last 24 hr 06/18/17 06/18/17 Range/Units 06:14 06:14 WBC 16.56 H (4.23-9.07) K/mm3 RBC 4.36 L (4.63-6.08) M/mm3 Hgb 12.5 L (13.7-17.5) gm/L Hct 38.3 L (40.1-51.0) % MCV 87.8 (79.0-92.2) fl MCH 28.7 (25.7-32.2) pg MCHC 32.6 (32.2-35.5) g/dl RDW Std Deviation 48.5 H (35.1-43.9) fL Plt Count 256 (163-337) K/mm3 MPV 9.7 (9.4-12.3) fl Neut % (Auto) 94.3 H (34.0-67.9) % Lymph % (Auto) 3.7 L (21.8-53.1) % [place] % (Auto) 1.8 L (5.3-12.2) % Eos % (Auto) 0 L (0.8-7.0) Baso % (Auto) 0.0 L (0.1-1.2) % Neut # (Auto) 15.62 H (1.78-5.38) K/mm3 Lymph # (Auto) 0.62 L (1.32-3.57) K/mm3 [place] # (Auto) 0.29 L (0.30-0.82) K/mm3 Eos # (Auto) 0.00 L (0.04-0.54) K/mm3 Baso # (Auto) 0.00 L (0.01-0.08) K/mm3 Manual Slide Review Abnormal smear Sodium 141 (136-145) mEq/L Potassium 4.6 (3.5-5.1) mEq/L Chloride 103 (98-107) mEq/L Carbon Dioxide 27 (21-32) mEq/L Anion Gap 15.6 H (5-15) BUN 64 H (7-18) mg/dL Creatinine 1.8 H (0.7-1.3) mg/dL Est Cr Clr Drug Dosing 27.38 mL/min Estimated GFR (MDRD) 36 (>60) mL/min BUN/Creatinine Ratio 35.6 H (14-18) Glucose 194 H (83-115) mg/dL Calcium 9.6 (8.5-10.1) mg/dL Magnesium 2.9 H (1.8-2.4) mg/dl Julian Results Last 24 Hours: Microbiology 06/17/17 09:23 Streptococcus pneumoniae Antigen (M - Final Urine Med Orders - Current: Current Medications Acetaminophen (Tylenol) 650 mg PO Q4H PRN PRN Reason: Pain (Mild 1-3)/fever Hydrocodone Bitart/Acetaminophen ([place] 325-5 Mg) 1 tab PO Q4H PRN PRN Reason: Pain (moderate 4-6) Albuterol/Ipratropium (Duoneb 3.0-0.5 Mg/3 Ml) 3 ml NEB QIDRT [facility] Last Admin: 06/18/17 09:08 Dose: 3 ml Ascorbic Acid (Vitamin C) 500 mg PO QPM [facility] Last Admin: 06/17/17 17:09 Dose: 500 mg Aspirin (Aspirin) 81 mg PO BEDTIME [facility] Last Admin: 06/17/17 20:26 Dose: 81 mg Bisacodyl (Dulcolax) 5 mg PO DAILY PRN PRN Reason: Constipation Last Admin: 06/18/17 06:18 Dose: 5 mg Digoxin (Lanoxin) 250 mcg PO ACLUNCH [facility] Last Admin: 06/17/17 11:13 Dose: 250 mcg Diltiazem HCl (Cardizem Cd) 120 mg PO BID [facility] Last Admin: 06/18/17 08:56 Dose: 120 mg Docusate Sodium (Colace) 100 mg PO BID PRN PRN Reason: Constipation Docusate Sodium (Colace) 100 mg PO BID [facility] Last Admin: 06/18/17 08:52 Dose: 100 mg Ferrous Sulfate (Ferrous Sulfate) 325 mg PO WITHBREAKFAST [facility] Last Admin: 06/18/17 06:18 Dose: 325 mg Flunisolide (Nasalide Nasal [place]) 0 ml NASBOTH DAILY [facility] Last Admin: 06/18/17 08:50 Dose: 2 spray Folic Acid (Folic Acid) 1 mg PO QPM [facility] Last Admin: 06/17/17 17:09 Dose: 1 mg Furosemide (Lasix) 20 mg PO BID [facility] Last Admin: 06/18/17 08:52 Dose: 20 mg Guaifenesin (Mucinex) 600 mg PO DAILY PRN PRN Reason: Congestion Last Admin: 06/18/17 08:53 Dose: 600 mg Hydromorphone HCl (Dilaudid) 0.25 mg IVPUSH Q2H PRN PRN Reason: Pain (severe 7-10) Azithromycin 500 mg/ Sodium (Chloride) 250 mls @ 250 mls/hr IV Q24H [facility] Last Admin: 06/18/17 08:50 Dose: 250 mls/hr Lorazepam (Ativan) 0.25 mg IV Q6H PRN PRN Reason: Anxiety Methylprednisolone Sodium Succinate (Solu-Medrol) 60 mg IVPUSH Q8H [facility] Last Admin: 06/18/17 08:50 Dose: 60 mg Mometasone Furoate/Formoterol Fumar (Dulera 200-5 Mcg) 1 puff IH BID [facility] Last Admin: 06/18/17 09:10 Dose: 1 puff Multivitamins (Thera) 1 each PO QPM [facility] Last Admin: 06/17/17 17:09 Dose: 1 each Nitroglycerin (Nitrostat) 0.4 mg SL Q5M PRN PRN Reason: Chest Pain Ondansetron HCl (Zofran) 4 mg IV Q6H PRN PRN Reason: Nausea/Vomiting Pantoprazole Sodium (Protonix) 40 mg PO DAILY@0700 [facility] Last Admin: 06/18/17 06:18 Dose: 40 mg Polyethylene Glycol (Miralax) 17 gm PO DAILY PRN PRN Reason: Constipation Senna/Docusate Sodium (Senna Plus) 1 tab PO BID PRN PRN Reason: Constipation Sodium Chloride (Saline Flush) 10 ml FLUSH ASDIRECTED PRN PRN Reason: Keep Vein Open Last Admin: 06/16/17 09:08 Dose: 10 ml Spironolactone (Aldactone) 50 mg PO DAILY [facility] Temazepam (Restoril) 7.5 mg PO BEDTIME PRN PRN Reason: Sleep Last Admin: 06/17/17 20:29 Dose: 7.5 mg Discontinued Medications Albuterol/Ipratropium (Duoneb 3.0-0.5 Mg/3 Ml) 3 ml NEB ONETIME ONE Stop: 06/16/17 08:41 Last Admin: 06/16/17 08:53 Dose: 3 ml Albuterol/Ipratropium (Duoneb 3.0-0.5 Mg/3 Ml) 3 ml NEB ONETIME ONE Stop: 06/16/17 09:29 Last Admin: 06/16/17 09:37 Dose: 3 ml Bumetanide (Bumex) 0.5 mg IVPUSH ONETIME ONE Stop: 06/18/17 09:25 Furosemide (Lasix) 40 mg IVPUSH NOW ONE Stop: 06/16/17 10:38 Last Admin: 06/16/17 10:46 Dose: 40 mg Magnesium Sulfate 2 gm/ Premix 50 mls @ 25 mls/hr IV ONETIME ONE Stop: 06/16/17 10:40 Last Admin: 06/16/17 09:06 Dose: 25 mls/hr Azithromycin 500 mg/ Sodium (Chloride) 250 mls @ 250 mls/hr IV ONETIME ONE Stop: 06/16/17 11:23 Last Admin: 06/16/17 10:47 Dose: 250 mls/hr Promethazine HCl 12.5 mg/ (Sodium Chloride) 50.5 mls @ 100 mls/hr IV Q6H PRN PRN Reason: Nausea/Vomiting Magnesium Oxide (Magnesium Oxide) 400 mg PO BID [facility] Last Admin: 06/17/17 08:51 Dose: 400 mg Magnesium Oxide (Magnesium Oxide) 400 mg PO BID [facility] Methylprednisolone Sodium Succinate (Solu-Medrol) 125 mg IVPUSH ONETIME ONE Stop: 06/16/17 08:42 Last Admin: 06/16/17 09:04 Dose: 125 mg Non-Formulary Medication (Diflucan Oral) 125 mcg PO DAILY [facility] Last Admin: 06/17/17 10:38 Dose: Not Given Spironolactone (Aldactone) 25 mg PO DAILY [facility] Last Admin: 06/18/17 08:53 Dose: 25 mg Spironolactone (Aldactone) 25 mg PO ONETIME ONE Stop: 06/18/17 09:24 - Exam Quality Assessment: Supplemental Oxygen, DVT Prophylaxis General: Alert, Oriented, Cooperative, No Acute Distress HEENT: Pupils Equal, EOMI, Mucous Membr. Moist/[place] Neck: Supple Lungs: Normal Respiratory Effort, Decreased Breath Sounds GI/Abdominal Exam: Normal Bowel Sounds, Soft, Non-Tender (Male) Exam: Deferred Back Exam: Normal Inspection Extremities: Normal Inspection, No Pedal Edema, Normal Capillary Refill Peripheral Pulses: 1+: Dorsalis Pedis (L), Dorsalis Pedis (R) Neurological: No New Focal Deficit Psy/Mental Status: Alert, Normal Affect, Normal Mood - Problem List & Annotations (1) COPD exacerbation SNOMED Code(s): 483274827 Code(s): J44.1 - CHRONIC OBSTRUCTIVE PULMONARY DISEASE W (ACUTE) EXACERBATION Status: Acute Priority: High Current Visit: Yes (2) Hypoxia SNOMED Code(s): 394572795 Code(s): R09.02 - HYPOXEMIA Status: Acute Priority: High Current Visit : Yes (3) Supplemental oxygen dependent SNOMED Code(s): 042958046632 Code(s): Z99.81 - DEPENDENCE ON SUPPLEMENTAL OXYGEN Status: Chronic Priority: High Current Visit: Yes - Problem List Review Problem List Initiated/Reviewed/Updated: Yes - My Orders Last 24 Hours: My Active Orders 06/19/17 09:00 Spironolactone [Aldactone] 50 mg PO DAILY - Plan Plan:: Assessment/Plan: Acute: Respiratory Failure - Acute on Chronic - He carries advanced/end stage COPD and Pulmonary Fibrosis - Baseline supplemental O2 is 5L [place], he was on 3L back in 08/16/16 - His ABG shows low PO2 and normal CO2 - He was put on BIPAP in ED but off now, PRN NIPPV and supplemental O2 - He is allergic to Morphine - Maintain O2 at 88-89%--still on 5L/NC today COPD Exacerbation - Acute on Chronic - IV Steroids, Bronchodilators, IV Azithromycin, RT Care - Supplemental O2 and Supportive Care - repeat CXR; stable and unchanged, no developement of pneumonia - Negative strep pneumo/mycoplasma Mild CHF exacerbation -Fluid restriction -IVP bumex x 1 dose today -Cont PO lasix dose -Increase spironolactone dose to 50mg PO daily -Caution with renal disease; watch labs -Last echo with 45-50% EF in 07/2015 CKD -Slight worsening of creatinine to 1.8 today, prior 1.6, cont close monitoring -Follow am labs Hypermagnesemia- -Stop mag supplements -Follow with am labs -Telemetry Consider End of Life Care - Patient has Significant Cardiac and Lung Co-morbidities - He is end stage COPD - Patient would benefit with hospice care Chronic: Atrial Fibrillation, on ASA only CAD S/p CABG HF with Reduced EF of 45-50% and Regional Wall Motion Abnormality 08/02/2015 -Fluid balance is + 1320 today, add 0.5mg IVP bumex today; caution with CKD as noted above MVR HTN- stable Advanced COPD Pulmonary Fibrosis Constipation Urinary Retention OA/DJD Cachexia--20lb wt loss since last admission around 6-7 months ago--Hvac Maintenance Technician consult CTS Hx/o Recurrent PNA Hx/o TIA HOMERO Plan: Admit to Med-Surg with Tele Routine AM labs Resume Home Meds PT/OT/RT consult GI/DVT prophylax CM/SW for d/c planning--plan 2-3 more days for hospital stay/treatment. Additional orders as above Code status: DNR/DNI
[2017-06-18] MEDS: Digoxin 250 MCG Tab PO SCH (09:51)
[2017-06-18] MEDS: Ascorbic Acid 500 MG Tab PO SCH (17:00)
[2017-06-18] MEDS: Folic Acid 1 MG Tab PO SCH (17:00)
[2017-06-18] MEDS: Multivitamins,Therapeutic Tab PO SCH (17:00)
[2017-06-18] MEDS: Aspirin 81 MG Tab.Chew PO SCH (21:11)
[2017-06-19] MEDS: methylPREDNISolone Sodium Succinate 40 MG/1 ML SDV IVPUSH SCH ×2 (01:57→08:01)
[2017-06-19] MEDS: Furosemide 20 MG Tab PO SCH ×3 (04:01→13:46)
[2017-06-19] MEDS: Albuterol/Ipratropium 3.0-0.5 MG/3 ML Neb Soln NEB SCH ×4 (05:55→20:35)
[2017-06-19] MEDS: Pantoprazole 40 MG Tab.CR PO SCH (06:19)
[2017-06-19] MEDS: Ferrous Sulfate 325 MG Tab PO SCH (06:19)
[2017-06-19] MEDS: Spironolactone 25 MG Tab PO SCH (08:01)
[2017-06-19] MEDS: Diltiazem 120 MG Cap.CD PO SCH ×2 (08:01→20:55)
[2017-06-19] MEDS: Azithromycin 500 MG in Sodium Chloride 0.9% 250 ML IV SCH (08:02)
[2017-06-19] MEDS: Docusate Sodium 100 MG Cap PO SCH ×2 (08:02→20:55)
--- NOTE | 2017-06-19 08:18 | PCM.PN ---
- General Info Date of Service: 06/19/17 Admission Dx/Problem (Free Text): Admission Diagnosis/Problem Admission Diagnosis/Problem COPD, Severe chronic obstructive pulmonary disease Subjective Update: Follow Up Functional Status: Reports: Pain Controlled, Tolerating Diet, Ambulating, Urinating. Denies: New Symptoms - Review of Systems General: Reports: Fatigue (baseline). Denies: Fever, Weakness, Malaise, Chills HEENT: Reports: No Symptoms Pulmonary: Reports: Shortness of Breath (baseline) Cardiovascular: Reports: Dyspnea on Exertion (baseline). Denies: Chest Pain Gastrointestinal: Denies: Abdominal Pain, Nausea, Vomiting Genitourinary: Reports: No Symptoms Musculoskeletal: Reports: No Symptoms Skin: Denies: Cyanosis Neurological: Denies: Confusion, Difficulty Walking, Weakness, Gait Disturbance Psychiatric: Denies: Depression, Anxiety, Agitation, Hallucinations Systems Review Comment:: No significant overnight or acute issues. He is essentially the same clinically. He is ambulating and uses 6L with exertion. He has no new complaints but felt he could use one more day. - Patient Data Vitals - Most Recent: Last Vital Signs Temp 36.9 C 06/19/17 04:24 Pulse 107 H 06/19/17 08:01 Resp 16 06/19/17 04:24 BP 124/74 06/19/17 08:01 Pulse Ox 95 06/19/17 05:55 Weight - Most Recent: 60.101 kg I&O - Last 24 Hours: Intake & Output 06/18/17 06/19/17 06/19/17 22:59 06:59 14:59 Intake Total 1400 400 Output Total 900 475 Balance 500 -75 Lab Results Last 24 Hours: Laboratory Results - last 24 hr 06/19/17 06/19/17 Range/Units 05:54 05:54 WBC 12.42 H (4.23-9.07) K/mm3 RBC 4.09 L (4.63-6.08) M/mm3 Hgb 11.9 L (13.7-17.5) gm/L Hct 36.3 L (40.1-51.0) % MCV 88.8 (79.0-92.2) fl MCH 29.1 (25.7-32.2) pg MCHC 32.8 (32.2-35.5) g/dl RDW Std Deviation 49.0 H (35.1-43.9) fL Plt Count 273 (163-337) K/mm3 MPV 9.4 (9.4-12.3) fl Neut % (Auto) 92.4 H (34.0-67.9) % Lymph % (Auto) 3.4 L (21.8-53.1) % [place] % (Auto) 3.9 L (5.3-12.2) % Eos % (Auto) 0 L (0.8-7.0) Baso % (Auto) 0.1 (0.1-1.2) % Neut # (Auto) 11.47 H (1.78-5.38) K/mm3 Lymph # (Auto) 0.42 L (1.32-3.57) K/mm3 [place] # (Auto) 0.49 (0.30-0.82) K/mm3 Eos # (Auto) 0.00 L (0.04-0.54) K/mm3 Baso # (Auto) 0.01 (0.01-0.08) K/mm3 Manual Slide Review Abnormal smear Sodium 141 (136-145) mEq/L Potassium 5.1 (3.5-5.1) mEq/L Chloride 104 (98-107) mEq/L Carbon Dioxide 28 (21-32) mEq/L Anion Gap 14.1 (5-15) BUN 64 H (7-18) mg/dL Creatinine 1.3 (0.7-1.3) mg/dL Est Cr Clr Drug Dosing 38.53 mL/min Estimated GFR (MDRD) 53 (>60) mL/min BUN/Creatinine Ratio 49.2 H (14-18) Glucose 166 H (83-115) mg/dL Calcium 9.3 (8.5-10.1) mg/dL Magnesium 2.9 H (1.8-2.4) mg/dl [place] Results Last 24 Hours: Microbiology 06/17/17 09:23 Streptococcus pneumoniae Antigen (M - Final Urine Med Orders - Current: Current Medications Acetaminophen (Tylenol) 650 mg PO Q4H PRN PRN Reason: Pain (Mild 1-3)/fever Hydrocodone Bitart/Acetaminophen ([place] 325-5 Mg) 1 tab PO Q4H PRN PRN Reason: Pain (moderate 4-6) Albuterol/Ipratropium (Duoneb 3.0-0.5 Mg/3 Ml) 3 ml NEB QIDRT [facility] Last Admin: 06/19/17 05:55 Dose: 3 ml Ascorbic Acid (Vitamin C) 500 mg PO QPM [facility] Last Admin: 06/18/17 17:00 Dose: 500 mg Aspirin (Aspirin) 81 mg PO BEDTIME [facility] Last Admin: 06/18/17 21:11 Dose: 81 mg Bisacodyl (Dulcolax) 5 mg PO DAILY PRN PRN Reason: Constipation Last Admin: 06/18/17 06:18 Dose: 5 mg Digoxin (Lanoxin) 250 mcg PO ACLUNCH [facility] Last Admin: 06/18/17 09:51 Dose: 250 mcg Diltiazem HCl (Cardizem Cd) 120 mg PO BID [facility] Last Admin: 06/19/17 08:01 Dose: 120 mg Docusate Sodium (Colace) 100 mg PO BID PRN PRN Reason: Constipation Docusate Sodium (Colace) 100 mg PO BID [facility] Last Admin: 06/19/17 08:02 Dose: 100 mg Ferrous Sulfate (Ferrous Sulfate) 325 mg PO WITHBREAKFAST [facility] Last Admin: 06/19/17 06:19 Dose: 325 mg Flunisolide (Nasalide Nasal [place]) 0 ml NASBOTH DAILY [facility] Last Admin: 06/19/17 08:02 Dose: 2 spray Folic Acid (Folic Acid) 1 mg PO QPM [facility] Last Admin: 06/18/17 17:00 Dose: 1 mg Furosemide (Lasix) 20 mg PO BIDDIURETIC [facility] Last Admin: 06/19/17 06:19 Dose: 20 mg Guaifenesin (Mucinex) 600 mg PO DAILY PRN PRN Reason: Congestion Last Admin: 06/18/17 08:53 Dose: 600 mg Hydromorphone HCl (Dilaudid) 0.25 mg IVPUSH Q2H PRN PRN Reason: Pain (severe 7-10) Azithromycin 500 mg/ Sodium (Chloride) 250 mls @ 250 mls/hr IV Q24H [facility] Last Admin: 06/19/17 08:02 Dose: 250 mls/hr Lorazepam (Ativan) 0.25 mg IV Q6H PRN PRN Reason: Anxiety Methylprednisolone Sodium Succinate (Solu-Medrol) 60 mg IVPUSH Q8H [facility] Last Admin: 06/19/17 08:01 Dose: 60 mg Mometasone Furoate/Formoterol Fumar (Dulera 200-5 Mcg) 1 puff IH BID [facility] Last Admin: 06/18/17 20:29 Dose: 1 puff Multivitamins (Thera) 1 each PO QPM [facility] Last Admin: 06/18/17 17:00 Dose: 1 each Nitroglycerin (Nitrostat) 0.4 mg SL Q5M PRN PRN Reason: Chest Pain Ondansetron HCl (Zofran) 4 mg IV Q6H PRN PRN Reason: Nausea/Vomiting Pantoprazole Sodium (Protonix) 40 mg PO DAILY@0700 [facility] Last Admin: 06/19/17 06:19 Dose: 40 mg Polyethylene Glycol (Miralax) 17 gm PO DAILY PRN PRN Reason: Constipation Senna/Docusate Sodium (Senna Plus) 1 tab PO BID PRN PRN Reason: Constipation Sodium Chloride (Saline Flush) 10 ml FLUSH ASDIRECTED PRN PRN Reason: Keep Vein Open Last Admin: 06/16/17 09:08 Dose: 10 ml Spironolactone (Aldactone) 50 mg PO DAILY [facility] Last Admin: 06/19/17 08:01 Dose: 50 mg Temazepam (Restoril) 7.5 mg PO BEDTIME PRN PRN Reason: Sleep Last Admin: 06/17/17 20:29 Dose: 7.5 mg Discontinued Medications Albuterol/Ipratropium (Duoneb 3.0-0.5 Mg/3 Ml) 3 ml NEB ONETIME ONE Stop: 06/16/17 08:41 Last Admin: 06/16/17 08:53 Dose: 3 ml Albuterol/Ipratropium (Duoneb 3.0-0.5 Mg/3 Ml) 3 ml NEB ONETIME ONE Stop: 06/16/17 09:29 Last Admin: 06/16/17 09:37 Dose: 3 ml Bumetanide (Bumex) 0.5 mg IVPUSH ONETIME ONE Stop: 06/18/17 09:25 Last Admin: 06/18/17 09:57 Dose: 0.5 mg Furosemide (Lasix) 40 mg IVPUSH NOW ONE Stop: 06/16/17 10:38 Last Admin: 06/16/17 10:46 Dose: 40 mg Furosemide (Lasix) 20 mg PO BID [facility] Last Admin: 06/18/17 21:13 Dose: 20 mg Magnesium Sulfate 2 gm/ Premix 50 mls @ 25 mls/hr IV ONETIME ONE Stop: 06/16/17 10:40 Last Admin: 06/16/17 09:06 Dose: 25 mls/hr Azithromycin 500 mg/ Sodium (Chloride) 250 mls @ 250 mls/hr IV ONETIME ONE Stop: 06/16/17 11:23 Last Admin: 06/16/17 10:47 Dose: 250 mls/hr Promethazine HCl 12.5 mg/ (Sodium Chloride) 50.5 mls @ 100 mls/hr IV Q6H PRN PRN Reason: Nausea/Vomiting Magnesium Oxide (Magnesium Oxide) 400 mg PO BID [facility] Last Admin: 06/17/17 08:51 Dose: 400 mg Magnesium Oxide (Magnesium Oxide) 400 mg PO BID [facility] Methylprednisolone Sodium Succinate (Solu-Medrol) 125 mg IVPUSH ONETIME ONE Stop: 06/16/17 08:42 Last Admin: 06/16/17 09:04 Dose: 125 mg Non-Formulary Medication (Diflucan Oral) 125 mcg PO DAILY [facility] Last Admin: 06/17/17 10:38 Dose: Not Given Spironolactone (Aldactone) 25 mg PO DAILY [facility] Last Admin: 06/18/17 08:53 Dose: 25 mg Spironolactone (Aldactone) 25 mg PO ONETIME ONE Stop: 06/18/17 09:24 Last Admin: 06/18/17 09:51 Dose: 25 mg - Exam Quality Assessment: Supplemental Oxygen General: Alert, Oriented, Cooperative, No Acute Distress, Other (cachectic) HEENT: Pupils Equal, Pupils Reactive, EOMI, Mucous Membr. Moist/[place], Scleral Icterus, Other (bitemporal wasting) Neck: Supple, Trachea Midline, No JVD, No Thyromegaly. No: Thyromegaly Lungs: Clear to Auscultation, Normal Respiratory Effort, Decreased Breath Sounds Cardiovascular: Other (Distant heart sound) GI/Abdominal Exam: Normal Bowel Sounds, Soft, Non-Tender, No Organomegaly, No Distention, No Abnormal Bruit (Male) Exam: Deferred Back Exam: Normal Inspection, Decreased Range of Motion Extremities: Normal Inspection, Normal Range of Motion, Non-Tender, No Pedal Edema, Normal Capillary Refill Peripheral Pulses: 2+: Dorsalis Pedis (L), Dorsalis Pedis (R) Skin: Warm, Dry, Intact Neurological: No New Focal Deficit Psy/Mental Status: Alert, Normal Affect, Normal Mood - Problem List Review Problem List Initiated/Reviewed/Updated: Yes - My Orders Last 24 Hours: My Active Orders 06/18/17 10:43 Ambulate [RC] ASDIRECTED 06/19/17 03:00 Furosemide [Lasix] 20 mg PO BIDDIURETIC 06/20/17 05:11 BASIC METABOLIC PANEL,BMP [CHEM] AM CBC WITH AUTO DIFF [HEME] AM MAGNESIUM [CHEM] AM - Plan Plan:: Assessment/Plan: Acute: Respiratory Failure - Acute on Chronic - He carries advanced/end stage COPD and Pulmonary Fibrosis - Baseline supplemental O2 is 5L NC, he was on 3L back in 08/16/16 - His ABG shows low PO2 and normal CO2 - He was put on BIPAP in ED but off now, PRN NIPPV and supplemental O2 - He is allergic to Morphine - Maintain O2 at 88-89%--still on 5L/NC today; he is at 6L with exertion/ activities COPD Exacerbation, Improved - Acute on Chronic - IV Steroids, Bronchodilators, IV Azithromycin, RT Care - Supplemental O2 and Supportive Care - Repeat CXR; stable and unchanged, no developement of pneumonia - Negative strep pneumo/mycoplasma Mild CHF Exacerbation - HF with Reduced EF of 45-50% and Regional Wall Motion Abnormality 2014 - Fluid restriction - Continue lasix and spironolactone - Caution with renal disease; continue to monitor labs - BNP in AM CKD Stage 3, Improved - His Cr is now 1.3 from 1.8 yesterday - Continue to monitor Hypermagnesemia - Mg 2.9 - Stop mag supplements - Continue to monitor - Telemetry Cachexia - 20 lbs wt loss since last admission around 6-7 months ago - Special Effects Specialist following Consider End of Life Care - Patient has Significant Cardiac and Lung Co-morbidities - He is end stage COPD - Patient would benefit with hospice care Chronic: Atrial Fibrillation, on ASA only CAD S/p CABG MVR HTN- stable Advanced COPD Pulmonary Fibrosis Constipation Urinary Retention OA/DJD CTS Hx/o Recurrent PNA Hx/o TIA HOMERO Plan: He remains clinically stable Routine AM labs Change Solumedrol to 60 mg IVP BID Continue PT/OT/RT GI/DVT prophylaxis CM/SW for d/c planning Additional orders as above Code status: DNR/DNI LOS anticipate > 96 hrs due to slow response to treatment. Patient understood this maybe his new baseline.
[2017-06-19] MEDS: Formoterol/Mometasone 200-5 MCG 8.8 GM Inhaler IH SCH ×2 (09:04→20:35)
[2017-06-19] MEDS: Digoxin 250 MCG Tab PO SCH (09:36)
[2017-06-19] MEDS: guaiFENesin 600 MG Tab.ER PO PRN (15:47)
[2017-06-19] MEDS: Multivitamins,Therapeutic Tab PO SCH (17:14)
[2017-06-19] MEDS: Ascorbic Acid 500 MG Tab PO SCH (17:14)
[2017-06-19] MEDS: Folic Acid 1 MG Tab PO SCH (17:14)
[2017-06-19] MEDS: Aspirin 81 MG Tab.Chew PO SCH (20:55)
[2017-06-20] MEDS: Albuterol/Ipratropium 3.0-0.5 MG/3 ML Neb Soln NEB SCH ×4 (06:09→21:21)
[2017-06-20] MEDS: Pantoprazole 40 MG Tab.CR PO SCH (06:43)
[2017-06-20] MEDS: Furosemide 20 MG Tab PO SCH ×2 (06:44→13:34)
[2017-06-20] MEDS: Ferrous Sulfate 325 MG Tab PO SCH (06:44)
[2017-06-20] MEDS ORDERED: methylPREDNISolone Sodium Succinate 40 MG/1 ML SDV IVPUSH SCH (08:00)
[2017-06-20] MEDS: Azithromycin 500 MG in Sodium Chloride 0.9% 250 ML IV SCH (08:03)
[2017-06-20] MEDS: Docusate Sodium 100 MG Cap PO SCH ×2 (08:04→21:47)
[2017-06-20] MEDS: Spironolactone 25 MG Tab PO SCH (08:04)
[2017-06-20] MEDS: Diltiazem 120 MG Cap.CD PO SCH ×2 (08:05→21:47)
--- NOTE | 2017-06-20 08:24 | PCM.PN ---
- General Info Date of Service: 06/20/17 Admission Dx/Problem (Free Text): Admission Diagnosis/Problem Admission Diagnosis/Problem COPD, Severe chronic obstructive pulmonary disease Subjective Update: Follow Up Functional Status: Reports: Pain Controlled, Tolerating Diet, Ambulating, Urinating. Denies: New Symptoms - Review of Systems General: Reports: Fatigue. Denies: Fever, Weakness, Chills (baseline) Pulmonary: Reports: Shortness of Breath (baseline) Cardiovascular: Reports: Dyspnea on Exertion (baseline). Denies: Chest Pain Gastrointestinal: Denies: Abdominal Pain, Nausea, Vomiting Genitourinary: Reports: No Symptoms Musculoskeletal: Reports: No Symptoms Skin: Reports: Bruising. Denies: Cyanosis, Pallor, Diaphoresis Neurological: Denies: Confusion, Dizziness, Difficulty Walking, Weakness, Gait Disturbance Psychiatric: Denies: Depression, Anxiety, Agitation, Hallucinations Systems Review Comment:: He had an uneventful night. He is not quite at baseline. He feels good however and sounded a littler better this am. He still at 5L NC and 6L when he ambulates. He ambulates only once yesterday. He complaints of loose stool this am. He feels he is not ready to go today. - Patient Data Vitals - Most Recent: Last Vital Signs Temp 36.7 C 06/20/17 05:19 Pulse 77 06/20/17 08:05 Resp 16 06/20/17 05:19 BP 128/56 L 06/20/17 08:05 Pulse Ox 95 06/20/17 06:09 Weight - Most Recent: 59.466 kg I&O - Last 24 Hours: Intake & Output 06/19/17 06/20/17 06/20/17 22:59 06:59 14:59 Intake Total 1110 300 Output Total 975 575 Balance 135 -275 Lab Results Last 24 Hours: Laboratory Results - last 24 hr 06/20/17 06/20/17 Range/Units 06:00 06:00 WBC 11.48 H (4.23-9.07) K/mm3 RBC 4.39 L (4.63-6.08) M/mm3 Hgb 12.5 L (13.7-17.5) gm/L Hct 39.3 L (40.1-51.0) % MCV 89.5 (79.0-92.2) fl MCH 28.5 (25.7-32.2) pg MCHC 31.8 L (32.2-35.5) g/dl RDW Std Deviation 49.5 H (35.1-43.9) fL Plt Count 272 (163-337) K/mm3 MPV 9.1 L (9.4-12.3) fl Neut % (Auto) 88.0 H (34.0-67.9) % Lymph % (Auto) 3.9 L (21.8-53.1) % [place] % (Auto) 7.3 (5.3-12.2) % Eos % (Auto) 0 L (0.8-7.0) Baso % (Auto) 0.1 (0.1-1.2) % Neut # (Auto) 10.10 H (1.78-5.38) K/mm3 Lymph # (Auto) 0.45 L (1.32-3.57) K/mm3 [place] # (Auto) 0.84 H (0.30-0.82) K/mm3 Eos # (Auto) 0.00 L (0.04-0.54) K/mm3 Baso # (Auto) 0.01 (0.01-0.08) K/mm3 Manual Slide Review Abnormal smear Sodium 145 (136-145) mEq/L Potassium 4.7 (3.5-5.1) mEq/L Chloride 108 H (98-107) mEq/L Carbon Dioxide 28 (21-32) mEq/L Anion Gap 13.7 (5-15) BUN 58 H (7-18) mg/dL Creatinine 1.4 H (0.7-1.3) mg/dL Est Cr Clr Drug Dosing 35.40 mL/min Estimated GFR (MDRD) 49 (>60) mL/min BUN/Creatinine Ratio 41.4 H (14-18) Glucose 128 H (83-115) mg/dL Calcium 9.3 (8.5-10.1) mg/dL Magnesium 2.7 H (1.8-2.4) mg/dl NT-Pro-B Natriuret Pep 3516 H (0-450) pg/mL Med Orders - Current: Current Medications Acetaminophen (Tylenol) 650 mg PO Q4H PRN PRN Reason: Pain (Mild 1-3)/fever Hydrocodone Bitart/Acetaminophen ([place] 325-5 Mg) 1 tab PO Q4H PRN PRN Reason: Pain (moderate 4-6) Albuterol/Ipratropium (Duoneb 3.0-0.5 Mg/3 Ml) 3 ml NEB QIDRT [facility] Last Admin: 06/20/17 06:09 Dose: 3 ml Ascorbic Acid (Vitamin C) 500 mg PO QPM [facility] Last Admin: 06/19/17 17:14 Dose: 500 mg Aspirin (Aspirin) 81 mg PO BEDTIME [facility] Last Admin: 06/19/17 20:55 Dose: 81 mg Bisacodyl (Dulcolax) 5 mg PO DAILY PRN PRN Reason: Constipation Last Admin: 06/18/17 06:18 Dose: 5 mg Digoxin (Lanoxin) 250 mcg PO ACLUNCH [facility] Last Admin: 06/19/17 09:36 Dose: 250 mcg Diltiazem HCl (Cardizem Cd) 120 mg PO BID [facility] Last Admin: 06/20/17 08:05 Dose: 120 mg Docusate Sodium (Colace) 100 mg PO BID PRN PRN Reason: Constipation Docusate Sodium (Colace) 100 mg PO BID [facility] Last Admin: 06/20/17 08:04 Dose: 100 mg Ferrous Sulfate (Ferrous Sulfate) 325 mg PO WITHBREAKFAST [facility] Last Admin: 06/20/17 06:44 Dose: 325 mg Flunisolide (Nasalide Nasal [place]) 0 ml NASBOTH DAILY [facility] Last Admin: 06/20/17 08:03 Dose: 2 spray Folic Acid (Folic Acid) 1 mg PO QPM [facility] Last Admin: 06/19/17 17:14 Dose: 1 mg Furosemide (Lasix) 20 mg PO BIDDIURETIC [facility] Last Admin: 06/20/17 06:44 Dose: 20 mg Guaifenesin (Mucinex) 600 mg PO DAILY PRN PRN Reason: Congestion Last Admin: 06/19/17 15:47 Dose: 600 mg Hydromorphone HCl (Dilaudid) 0.25 mg IVPUSH Q2H PRN PRN Reason: Pain (severe 7-10) Azithromycin 500 mg/ Sodium (Chloride) 250 mls @ 250 mls/hr IV Q24H [facility] Stop: 06/20/17 12:00 Last Admin: 06/20/17 08:03 Dose: 250 mls/hr Lorazepam (Ativan) 0.25 mg IV Q6H PRN PRN Reason: Anxiety Methylprednisolone Sodium Succinate (Solu-Medrol) 60 mg IVPUSH Q12H [facility] Stop: 06/20/17 20:01 Last Admin: 06/20/17 08:03 Dose: 60 mg Mometasone Furoate/Formoterol Fumar (Dulera 200-5 Mcg) 1 puff IH BID [facility] Last Admin: 06/19/17 20:35 Dose: 1 puff Multivitamins (Thera) 1 each PO QPM [facility] Last Admin: 06/19/17 17:14 Dose: 1 each Nitroglycerin (Nitrostat) 0.4 mg SL Q5M PRN PRN Reason: Chest Pain Ondansetron HCl (Zofran) 4 mg IV Q6H PRN PRN Reason: Nausea/Vomiting Pantoprazole Sodium (Protonix) 40 mg PO DAILY@0700 [facility] Last Admin: 06/20/17 06:43 Dose: 40 mg Polyethylene Glycol (Miralax) 17 gm PO DAILY PRN PRN Reason: Constipation Senna/Docusate Sodium (Senna Plus) 1 tab PO BID PRN PRN Reason: Constipation Sodium Chloride (Saline Flush) 10 ml FLUSH ASDIRECTED PRN PRN Reason: Keep Vein Open Last Admin: 06/16/17 09:08 Dose: 10 ml Spironolactone (Aldactone) 50 mg PO DAILY [facility] Last Admin: 06/20/17 08:04 Dose: 50 mg Temazepam (Restoril) 7.5 mg PO BEDTIME PRN PRN Reason: Sleep Last Admin: 06/17/17 20:29 Dose: 7.5 mg Discontinued Medications Albuterol/Ipratropium (Duoneb 3.0-0.5 Mg/3 Ml) 3 ml NEB ONETIME ONE Stop: 06/16/17 08:41 Last Admin: 06/16/17 08:53 Dose: 3 ml Albuterol/Ipratropium (Duoneb 3.0-0.5 Mg/3 Ml) 3 ml NEB ONETIME ONE Stop: 06/16/17 09:29 Last Admin: 06/16/17 09:37 Dose: 3 ml Bumetanide (Bumex) 0.5 mg IVPUSH ONETIME ONE Stop: 06/18/17 09:25 Last Admin: 06/18/17 09:57 Dose: 0.5 mg Furosemide (Lasix) 40 mg IVPUSH NOW ONE Stop: 06/16/17 10:38 Last Admin: 06/16/17 10:46 Dose: 40 mg Furosemide (Lasix) 20 mg PO BID [facility] Last Admin: 06/18/17 21:13 Dose: 20 mg Magnesium Sulfate 2 gm/ Premix 50 mls @ 25 mls/hr IV ONETIME ONE Stop: 06/16/17 10:40 Last Admin: 06/16/17 09:06 Dose: 25 mls/hr Azithromycin 500 mg/ Sodium (Chloride) 250 mls @ 250 mls/hr IV ONETIME ONE Stop: 06/16/17 11:23 Last Admin: 06/16/17 10:47 Dose: 250 mls/hr Promethazine HCl 12.5 mg/ (Sodium Chloride) 50.5 mls @ 100 mls/hr IV Q6H PRN PRN Reason: Nausea/Vomiting Magnesium Oxide (Magnesium Oxide) 400 mg PO BID [facility] Last Admin: 06/17/17 08:51 Dose: 400 mg Magnesium Oxide (Magnesium Oxide) 400 mg PO BID [facility] Methylprednisolone Sodium Succinate (Solu-Medrol) 125 mg IVPUSH ONETIME ONE Stop: 06/16/17 08:42 Last Admin: 06/16/17 09:04 Dose: 125 mg Methylprednisolone Sodium Succinate (Solu-Medrol) 60 mg IVPUSH Q8H [facility] Last Admin: 06/19/17 08:01 Dose: 60 mg Non-Formulary Medication (Diflucan Oral) 125 mcg PO DAILY [facility] Last Admin: 06/17/17 10:38 Dose: Not Given Spironolactone (Aldactone) 25 mg PO DAILY [facility] Last Admin: 06/18/17 08:53 Dose: 25 mg Spironolactone (Aldactone) 25 mg PO ONETIME ONE Stop: 06/18/17 09:24 Last Admin: 06/18/17 09:51 Dose: 25 mg - Exam Quality Assessment: Supplemental Oxygen General: Alert, Oriented, Cooperative, No Acute Distress, Other (cachexia) HEENT: Pupils Equal, Pupils Reactive, EOMI, Mucous Membr. Moist/[place], Other ( Bitemporal wasting) Neck: Supple, Trachea Midline, No JVD, No Thyromegaly, Other (no accessory muscle use) Lungs: Normal Respiratory Effort, Decreased Breath Sounds, Other (improved aeration and inspiratory effort) GI/Abdominal Exam: Normal Bowel Sounds, Soft, Non-Tender, No Organomegaly, No Distention, No Abnormal Bruit, No Mass (Male) Exam: Deferred Back Exam: Normal Inspection, Decreased Range of Motion Extremities: Normal Inspection, Normal Range of Motion, Non-Tender, No Pedal Edema, Normal Capillary Refill Peripheral Pulses: 2+: Dorsalis Pedis (L), Dorsalis Pedis (R) Skin: Warm, Dry, Intact, Ecchymosis (on all extrmeities) Neurological: No New Focal Deficit Psy/Mental Status: Alert, Normal Affect, Normal Mood - Problem List Review Problem List Initiated/Reviewed/Updated: Yes - My Orders Last 24 Hours: My Active Orders 06/20/17 08:00 methylPREDNISolone Sod Succ [Solu-MEDROL] 60 mg IVPUSH Q12H - Plan Plan:: Assessment/Plan: Acute: Respiratory Failure, He is essentially the same - Acute on Chronic - He carries advanced/end stage COPD and Pulmonary Fibrosis - Baseline supplemental O2 is 5L NC, he was on 3L back in 08/16/16 - His ABG shows low PO2 and normal CO2 - He was put on BIPAP in ED but off now, PRN NIPPV and supplemental O2 - He is allergic to Morphine - Maintain O2 at 88-89%--still on 5L/NC today; he is at 6L with exertion/ activities COPD Exacerbation, Improved - Acute on Chronic - IV Steroids, Bronchodilators, IV Azithromycin, RT Care - Supplemental O2 and Supportive Care - Repeat CXR; stable and unchanged, no development of pneumonia - Negative strep pneumo/mycoplasma Mild CHF Exacerbation, Unchanged but he is not volume overloaded - HF with Reduced EF of 45-50% and Regional Wall Motion Abnormality 2014 - Fluid restriction - Continue lasix and spironolactone - Caution with renal disease; continue to monitor labs - BNP is 3516 this am CKD Stage 3, Improved - His Cr is now 1.4 from 1.3 yesterday - Continue to monitor - Great urine output Hypermagnesemia, Improved - Mg 2.9 --> 2.7 today - Stop mag supplements - Continue to monitor - Telemetry Cachexia, Unchanged - 20 lbs wt loss since last admission around 6-7 months ago - [employer]er following Consider End of Life Care - Patient has Significant Cardiac and Lung Co-morbidities - He is end stage COPD - Patient would benefit with hospice care Chronic: Atrial Fibrillation, on ASA only CAD S/p CABG MVR HTN- stable Advanced COPD Pulmonary Fibrosis Constipation Urinary Retention OA/DJD CTS Hx/o Recurrent PNA Hx/o TIA HOMERO Plan: He remains clinically stable; he feels he is not quite ready today but okay to leave tomorrow if he is stable Routine AM labs Continue PT/OT/RT GI/DVT prophylaxis CM/SW for d/c planning Encourage to ambulate as tolerated Additional orders as above Code status: DNR/DNI LOS > 96 hrs due to slow response to treatment. Patient understood this maybe his new baseline. Possible s/c in AM.
[2017-06-20] MEDS ORDERED: Magnesium Oxide 400 MG Tab PO SCH (09:00)
[2017-06-20] MEDS: Formoterol/Mometasone 200-5 MCG 8.8 GM Inhaler IH SCH ×2 (09:10→21:21)
[2017-06-20] MEDS: guaiFENesin 600 MG Tab.ER PO PRN (09:57)
[2017-06-20] MEDS: Digoxin 250 MCG Tab PO SCH (09:57)
[2017-06-20] MEDS: Folic Acid 1 MG Tab PO SCH (17:01)
[2017-06-20] MEDS: Ascorbic Acid 500 MG Tab PO SCH (17:01)
[2017-06-20] MEDS: Multivitamins,Therapeutic Tab PO SCH (17:01)
[2017-06-20] MEDS: Aspirin 81 MG Tab.Chew PO SCH (21:47)
[2017-06-21] MEDS: Albuterol/Ipratropium 3.0-0.5 MG/3 ML Neb Soln NEB SCH ×3 (06:05→15:19)
[2017-06-21] MEDS: Ferrous Sulfate 325 MG Tab PO SCH (06:26)
[2017-06-21] MEDS: Pantoprazole 40 MG Tab.CR PO SCH (06:26)
[2017-06-21] MEDS: Furosemide 20 MG Tab PO SCH ×2 (06:26→14:35)
--- NOTE | 2017-06-21 07:46 | PCM.DCSUM1 ---
Discharge Summary - Hospital Course Free Text/Narrative:: This is an 82 yo elderly white male with past medical hx/o Atrial Fibrillation, on ASA only, CAD S/p CABG, HF with Reduced EF of 45-50% and Regional Wall Motion Abnormality 08/02/2015, MVR, HTN, Pulmonary Fibrosis, Constipation, Urinary Retention, OA/DJD, CTS, Hx/o Recurrent PNA, Hx/o TIA, and HOMERO who comes in with complaints of worsening shortness of breath that started last night. Patient carries a history of advanced COPD and chronic respiratory failure. He usually on 5L nasal cannula for supplemental O2. Patient reports being congested lately and having more cough than usual. He also reports some chest pressure but seemed to have improved since receiving initial treatment in the emergency department. His symptom is aggravated by activity. His initial workup in emergency department shows a CBC remarkable for WBC of 15.85, neutrophils of 73.6%, lymphocytes of 9.2%, and eosinophils of 0.2%. His ABG shows a pH of 7.43, PCO2 of 37.6, PO2 of 63, bicarbonate of 24.5, and O2 sat of 91.4% on BiPAP with FiO2 of 54. His chemistry is remarkable for anion gap of 18.2%, BUN of 31, creatinine of 1.5, glucose of 127, total bilirubin of 1.2, proBNP of 1180, and albumin of 2.2. His chest x-ray report reads nothing acute is definitely appreciated. Patient is being admitted for acute on chronic respiratory failure and COPD exacerbation. He is DNR/DNI. Repeat CXR was unremarkable for acute findings/infiltrates. He was treated with IV steroids, zithromax and aggressive pulmonary treatment/RT for COPD exacerbation. Initially he was on bipap in ED and upon transfer to floor weaned to mask then to cannula. He received IV lasix, home spirololactone dose was increased from 25mg daily to 50mg daily. He worked with PT/OT and did well. He was able to improve his SOB with exertion and improve SOB post exercise during his stay. Rn Transition was consulted as he has had 20lb wt loss since his last admission 6+ months ago. He has been taking his supplement drinks. He had a good appetite. He will be discharged home today with prednisone taper, increased spironolactone dose. He will follow up with Dr. Buchanan in [address] Ibrahim, Pipe Cleaner as previously scheduled. He declines other home health or community based services at this time. His son is helpful at home and drives him as he is back and forth from [place] to [place] where he stays with his daughter as his is still in SNF/Rehab in [place] recovering. - Discharge Data Discharge Date: 06/21/17 (admit date 06/16/17) Discharge Disposition: Home, Self-Care 01 Condition: Fair - Discharge Diagnosis/Problem(s) (1) COPD exacerbation SNOMED Code(s): 932686961 ICD Code: J44.1 - CHRONIC OBSTRUCTIVE PULMONARY DISEASE W (ACUTE) EXACERBATION Status: Acute Priority: High Current Visit: Yes (2) Hypoxia SNOMED Code(s): 617183819 ICD Code: R09.02 - HYPOXEMIA Status: Acute Priority: High Current Visit : Yes (3) Supplemental oxygen dependent SNOMED Code(s): 949071558248 ICD Code: Z99.81 - DEPENDENCE ON SUPPLEMENTAL OXYGEN Status: Chronic Priority: High Current Visit: Yes (4) Acute respiratory failure with hypoxia SNOMED Code(s): 98705081 ICD Code: J96.01 - ACUTE RESPIRATORY FAILURE WITH HYPOXIA Status: Resolved Priority: High Current Visit: Yes (5) Weight loss SNOMED Code(s): 09729759 ICD Code: R63.4 - ABNORMAL WEIGHT LOSS Status: Acute Priority: High Current Visit: Yes Problem Details: 20lb wt loss since last hospitalization 6 months ago - Patient Summary/Data Operative Procedure(s) Performed: None Complications: None Consults: Consultations 06/16/17 11:46 Consult to Case Management [CONS] Routine Consult to School Bus Driver [CONS] Routine Consult to Spiritual Care [CONS] Routine OT Evaluation and Treatment [CONS] Routine PT Evaluation and Treatment [CONS] Routine Respiratory Care Assess and Treatment [CONS] Routine 06/17/17 07:38 Consult to Rn Transition [CONS] Routine Labs Pending at D/C: None Recommended Follow-up Testing/Procedures: Patient DC instructions: Follow up with Dr. Buchanan within one week of discharge. See Dr. Ibrahim as scheduled. Oxygen as needed at home Spironolactone dose has been increased; take one daily Ambulate 3+ times daily Continue with supplement drink at home Planned Operative Procedure(s) after DC: None Hospital Course: As above - Patient Instructions Diet: Heart Healthy Diet Activity: As Tolerated Driving: Do Not Drive Showering/Bathing: May Shower Notify Provider of: Fever, Increased Pain (worsening of shortness of breath, coughing, chest pain, increased need for oxygen requirements) - Discharge Plan Prescriptions/Med Rec: predniSONE See Taper PO .Daily Taper #30 tablet Spironolactone [Aldactone] 50 mg PO DAILY #30 tablet Home Medications: Home Meds Ascorbic Acid [Vitamin C] 500 mg PO DAILY 08/16/16 [History] Aspirin 81 mg PO BEDTIME 08/16/16 [History] Diflucan Oral 125 mcg PO DAILY PRN 08/16/16 [History] Diltiazem [Cardizem CD] 120 mg PO BID 08/16/16 [History] Flunisolide [Aerospan] 2 spray NASBOTH DAILY 08/16/16 [History] Fluticasone/Salmeterol [Advair 250-50 Diskus] 1 puff INH BID 08/16/16 [History] Folic Acid 800 mcg PO DAILY 08/16/16 [History] Furosemide [Lasix] 20 mg PO BID 08/16/16 [History] Multivitamin [Multivitamins] 1 tab PO DAILY 08/16/16 [History] Nitroglycerin [Nitrostat] 0.4 mg SL Q5M PRN 08/16/16 [History] Omeprazole 20 mg PO DAILY 08/16/16 [History] guaiFENesin [Mucinex] 600 mg PO DAILY PRN 08/16/16 [History] Albuterol/Ipratropium [DuoNeb 3.0-0.5 MG/3 ML] 3 ml NEB QIDRT #40 neb 09/03/16 [ Rx] Docusate Sodium [Colace] 100 mg PO BID #60 cap 10/26/16 [Rx] Ferrous Sulfate 325 mg PO WITHBREAKFAST #30 tablet 10/26/16 [Rx] Digoxin 250 mcg PO ACLUNCH 06/16/17 [History] Prednisone [IJD: Prednisone] 5 mg PO DAILY #0 06/21/17 [Rx] Spironolactone [Aldactone] 50 mg PO DAILY #30 tablet 06/21/17 [Rx] predniSONE See Taper PO .Daily Taper #30 tablet 06/21/17 [Rx] Patient Handouts: Chronic Obstructive Pulmonary Disease, [id number], Oxygen Use at Home Forms: ED Department Discharge Referrals: William Buchanan MD [Primary Care Provider] - 06/28/17 2:00 pm (Please follow-up with Dr. Buchanan on June 28 at 0200pm. If this does not work for your please call and reschedule. ) - Discharge Summary/Plan Comment DC Time >30 min.: Yes (45 min) - General Info Date of Service: 06/21/17 Admission Dx/Problem (Free Text: Admission Diagnosis/Problem Admission Diagnosis/Problem COPD, Severe chronic obstructive pulmonary disease Moshe is seen this morning. Overall feels better, less oxygen requirements, less winded with exertion and less time to recover after activity. Cough is "usual". Slepts well. Good appettie. Afebrile. Labs and VSS. Plans for DC home today. Functional Status: Reports: Pain Controlled, Tolerating Diet, Ambulating, Urinating, Incentive Spirometry. Denies: New Symptoms - Review of Systems General: Reports: No Symptoms HEENT: Reports: No Symptoms Pulmonary: Reports: Shortness of Breath, Cough Cardiovascular: Reports: Dyspnea on Exertion Gastrointestinal: Reports: No Symptoms Genitourinary: Reports: No Symptoms Musculoskeletal: Reports: No Symptoms - Patient Data Vitals - Most Recent: Last Vital Signs Temp 98.4 F 06/21/17 05:15 Pulse 62 06/21/17 05:15 Resp 20 06/21/17 05:15 BP 125/57 L 06/21/17 05:15 Pulse Ox 96 06/21/17 06:05 Weight - Most Recent: 129 lb 3.2 oz I&O - Last 24 hours: Intake & Output 06/20/17 06/21/17 06/21/17 22:59 06:59 14:59 Intake Total 1350 250 Output Total 625 1050 Balance 725 -800 Lab Results - Last 24 hrs: Laboratory Results - last 24 hr 06/20/17 Range/Units 06:00 BUN 58 H (7-18) mg/dL BUN/Creatinine Ratio 41.4 H (14-18) NT-Pro-B Natriuret Pep 3516 H (0-450) pg/mL Med Orders - Current: Current Medications Acetaminophen (Tylenol) 650 mg PO Q4H PRN PRN Reason: Pain (Mild 1-3)/fever Hydrocodone Bitart/Acetaminophen ([place] 325-5 Mg) 1 tab PO Q4H PRN PRN Reason: Pain (moderate 4-6) Albuterol/Ipratropium (Duoneb 3.0-0.5 Mg/3 Ml) 3 ml NEB QIDRT [facility] Last Admin: 06/21/17 06:05 Dose: 3 ml Ascorbic Acid (Vitamin C) 500 mg PO QPM [facility] Last Admin: 06/20/17 17:01 Dose: 500 mg Aspirin (Aspirin) 81 mg PO BEDTIME [facility] Last Admin: 06/20/17 21:47 Dose: 81 mg Bisacodyl (Dulcolax) 5 mg PO DAILY PRN PRN Reason: Constipation Last Admin: 06/18/17 06:18 Dose: 5 mg Digoxin (Lanoxin) 250 mcg PO ACLUNCH [facility] Last Admin: 06/20/17 09:57 Dose: 250 mcg Diltiazem HCl (Cardizem Cd) 120 mg PO BID [facility] Last Admin: 06/20/17 21:47 Dose: 120 mg Docusate Sodium (Colace) 100 mg PO BID PRN PRN Reason: Constipation Docusate Sodium (Colace) 100 mg PO BID [facility] Last Admin: 06/20/17 21:47 Dose: 100 mg Ferrous Sulfate (Ferrous Sulfate) 325 mg PO WITHBREAKFAST [facility] Last Admin: 06/21/17 06:26 Dose: 325 mg Flunisolide (Nasalide Nasal [place]) 0 ml NASBOTH DAILY [facility] Last Admin: 06/20/17 08:03 Dose: 2 spray Folic Acid (Folic Acid) 1 mg PO QPM [facility] Last Admin: 06/20/17 17:01 Dose: 1 mg Furosemide (Lasix) 20 mg PO BIDDIURETIC [facility] Last Admin: 06/21/17 06:26 Dose: 20 mg Guaifenesin (Mucinex) 600 mg PO DAILY PRN PRN Reason: Congestion Last Admin: 06/20/17 09:57 Dose: 600 mg Hydromorphone HCl (Dilaudid) 0.25 mg IVPUSH Q2H PRN PRN Reason: Pain (severe 7-10) Lorazepam (Ativan) 0.25 mg IV Q6H PRN PRN Reason: Anxiety Mometasone Furoate/Formoterol Fumar (Dulera 200-5 Mcg) 1 puff IH BID [facility] Last Admin: 06/20/17 21:21 Dose: 1 puff Multivitamins (Thera) 1 each PO QPM [facility] Last Admin: 06/20/17 17:01 Dose: 1 each Nitroglycerin (Nitrostat) 0.4 mg SL Q5M PRN PRN Reason: Chest Pain Ondansetron HCl (Zofran) 4 mg IV Q6H PRN PRN Reason: Nausea/Vomiting Pantoprazole Sodium (Protonix) 40 mg PO DAILY@0700 [facility] Last Admin: 06/21/17 06:26 Dose: 40 mg Polyethylene Glycol (Miralax) 17 gm PO DAILY PRN PRN Reason: Constipation Prednisone (Prednisone) 0 mg PO .Daily Taper [facility] PRN Reason: Taper Stop: 06/29/17 08:59 Senna/Docusate Sodium (Senna Plus) 1 tab PO BID PRN PRN Reason: Constipation Sodium Chloride (Saline Flush) 10 ml FLUSH ASDIRECTED PRN PRN Reason: Keep Vein Open Last Admin: 06/16/17 09:08 Dose: 10 ml Spironolactone (Aldactone) 50 mg PO DAILY [facility] Last Admin: 06/20/17 08:04 Dose: 50 mg Temazepam (Restoril) 7.5 mg PO BEDTIME PRN PRN Reason: Sleep Last Admin: 06/17/17 20:29 Dose: 7.5 mg Discontinued Medications Albuterol/Ipratropium (Duoneb 3.0-0.5 Mg/3 Ml) 3 ml NEB ONETIME ONE Stop: 06/16/17 08:41 Last Admin: 06/16/17 08:53 Dose: 3 ml Albuterol/Ipratropium (Duoneb 3.0-0.5 Mg/3 Ml) 3 ml NEB ONETIME ONE Stop: 06/16/17 09:29 Last Admin: 06/16/17 09:37 Dose: 3 ml Bumetanide (Bumex) 0.5 mg IVPUSH ONETIME ONE Stop: 06/18/17 09:25 Last Admin: 06/18/17 09:57 Dose: 0.5 mg Furosemide (Lasix) 40 mg IVPUSH NOW ONE Stop: 06/16/17 10:38 Last Admin: 06/16/17 10:46 Dose: 40 mg Furosemide (Lasix) 20 mg PO BID [facility] Last Admin: 06/18/17 21:13 Dose: 20 mg Magnesium Sulfate 2 gm/ Premix 50 mls @ 25 mls/hr IV ONETIME ONE Stop: 06/16/17 10:40 Last Admin: 06/16/17 09:06 Dose: 25 mls/hr Azithromycin 500 mg/ Sodium (Chloride) 250 mls @ 250 mls/hr IV ONETIME ONE Stop: 06/16/17 11:23 Last Admin: 06/16/17 10:47 Dose: 250 mls/hr Promethazine HCl 12.5 mg/ (Sodium Chloride) 50.5 mls @ 100 mls/hr IV Q6H PRN PRN Reason: Nausea/Vomiting Azithromycin 500 mg/ Sodium (Chloride) 250 mls @ 250 mls/hr IV Q24H [facility] Stop: 06/20/17 12:00 Last Admin: 06/20/17 08:03 Dose: 250 mls/hr Magnesium Oxide (Magnesium Oxide) 400 mg PO BID [facility] Last Admin: 06/17/17 08:51 Dose: 400 mg Magnesium Oxide (Magnesium Oxide) 400 mg PO BID [facility] Methylprednisolone Sodium Succinate (Solu-Medrol) 125 mg IVPUSH ONETIME ONE Stop: 06/16/17 08:42 Last Admin: 06/16/17 09:04 Dose: 125 mg Methylprednisolone Sodium Succinate (Solu-Medrol) 60 mg IVPUSH Q8H [facility] Last Admin: 06/19/17 08:01 Dose: 60 mg Methylprednisolone Sodium Succinate (Solu-Medrol) 60 mg IVPUSH Q12H [facility] Stop: 06/20/17 20:01 Last Admin: 06/20/17 08:03 Dose: 60 mg Non-Formulary Medication (Diflucan Oral) 125 mcg PO DAILY [facility] Last Admin: 06/17/17 10:38 Dose: Not Given Spironolactone (Aldactone) 25 mg PO DAILY [facility] Last Admin: 06/18/17 08:53 Dose: 25 mg Spironolactone (Aldactone) 25 mg PO ONETIME ONE Stop: 06/18/17 09:24 Last Admin: 06/18/17 09:51 Dose: 25 mg - Exam Quality Assessment: Reports: Supplemental Oxygen, DVT Prophylaxis General: Reports: Alert, Oriented, Cooperative, No Acute Distress HEENT: Reports: Pupils Equal, EOMI, Mucous Membr. Moist/[place] Neck: Reports: Supple Lungs: Reports: Normal Respiratory Effort, Decreased Breath Sounds (throughout) Cardiovascular: Reports: Irregular Rhythm GI/Abdominal Exam: Normal Bowel Sounds, Soft (Male) Exam: Deferred Rectal (Males) Exam: Deferred Back Exam: Reports: Normal Inspection Extremities: Normal Inspection, No Pedal Edema, Normal Capillary Refill Neurological: Reports: No New Focal Deficit Psy/Mental Status: Reports: Alert, Normal Affect, Normal Mood *Q Meaningful Use (DIS) - VTE *Q VTE Criteria *Q: - Stroke *Q Stroke Criteria *Q: - AMI *Q AMI Criteria *Q:
[2017-06-21] MEDS: Docusate Sodium 100 MG Cap PO SCH (08:10)
[2017-06-21] MEDS: Spironolactone 25 MG Tab PO SCH (08:10)
[2017-06-21] MEDS: Diltiazem 120 MG Cap.CD PO SCH (08:11)
[2017-06-21] MEDS ORDERED: methylPREDNISolone Sodium Succinate 40 MG/1 ML SDV IVPUSH SCH (09:00)
[2017-06-21] MEDS ORDERED: predniSONE 10 MG Tab PO SCH (09:00)
[2017-06-21] MEDS: Formoterol/Mometasone 200-5 MCG 8.8 GM Inhaler IH SCH (09:12)
[2017-06-21] MEDS: Digoxin 250 MCG Tab PO SCH (09:43)
[2017-06-21] MEDS ORDERED: Metoprolol Tartrate 5 MG/5 ML SDV IVPUSH ONE (16:12)
[2017-06-21 16:30] VITALS: BP 138/64
== END 2017-06-21 17:21 | disposition home or self-care (01) | DRG 190 ==
LOC: JD.ED 08:31 → JD.MS 11:03 → UNDOADMIN 11:03 → JD.MS 11:26
PROVIDERS: ADMIT Internal Medicine; ATTEND Internal Medicine
DX: J44.1 Chronic obstructive pulmonary disease with (acute) exacerbation (principal); J96.21 Acute and chronic respiratory failure with hypoxia; I25.810 Atherosclerosis of coronary artery bypass graft(s) without angina pectoris; R09.02 Hypoxemia; R64 Cachexia; Z87.891 Personal history of nicotine dependence; I48.91 Unspecified atrial fibrillation; I11.0 Hypertensive heart disease with heart failure; I25.2 Old myocardial infarction; Z09 Encounter for follow-up examination after completed treatment for conditions other than malignant neoplasm; I50.9 Heart failure, unspecified; Z95.5 Presence of coronary angioplasty implant and graft; I34.0 Nonrheumatic mitral (valve) insufficiency; J84.10 Pulmonary fibrosis, unspecified; G89.29 Other chronic pain; M54.9 Dorsalgia, unspecified; K59.00 Constipation, unspecified; R33.9 Retention of urine, unspecified; M19.90 Unspecified osteoarthritis, unspecified site; G56.00 Carpal tunnel syndrome, unspecified upper limb; Z86.73 Personal history of transient ischemic attack (TIA), and cerebral infarction without residual deficits; Z87.01 Personal history of pneumonia (recurrent); D50.9 Iron deficiency anemia, unspecified; Z66 Do not resuscitate; N18.3 Chronic kidney disease, stage 3 (moderate); E83.41 Hypermagnesemia; R63.4 Abnormal weight loss; Z79.82 Long term (current) use of aspirin; Z99.81 Dependence on supplemental oxygen; Z79.899 Other long term (current) drug therapy
CPT/HCPCS: 71010; 96365; 96366; 96367; 94660; 94640 ×2; 99285; 93005; 96375; 85025; 82803; 36600; 36415; 80053; 84484; 83880; J1940; J2930; J7050 ×2; J0456; 80048; 83735; 86738; 87804; 87899; 94664; 94761; 97110-GO; 97116-GP; 97162-GP; 97166-GO; 97530-GO; 97535-GO; 99223; 99231; 99232; 99239; A9270-GY; J2920; J3475; J3490

== ENCOUNTER 2017-08-03 06:53 | Emergency (ER) | payer MEDICARE, BC ==
[2017-08-03 07:18] VITALS: BP 149/79
--- NOTE | 2017-08-03 07:18 | EDM.PDOC ---
ED HPI GENERAL MEDICAL PROBLEM - General Chief Complaint: Abdominal Pain Stated Complaint: CONSTIPATION/ABD PAIN Time Seen by Provider: 08/03/17 07:13 Source of Information: Reports: Patient History Limitations: Reports: No Limitations - History of Present Illness INITIAL COMMENTS - FREE TEXT/NARRATIVE: 82-year-old gentleman presents to the ED with diffuse lower abdominal discomfort and rectal pressure. He reports no bowel movement for about 4 days. Has a constant feeling of need to defecate but unable to push out the hard stool. He is taking a stool softener twice daily based usually been working up until the last few days. Patient can still eat. He has no nausea or vomiting. He does have mild intermittent lower abdominal cramps. The bleeding per rectum. Does have some bedsores on the ischial tuberosities. Onset: Gradual Onset Date: 07/30/17 Duration: Day(s):, Waxing/Waning Location: Reports: Abdomen (as above) Quality: Reports: Ache, Other Severity: Moderate (Intermittent colicky cramping sharp pain.) Improves with: Reports: None Worsens with: Reports: None Context: Denies: Activity, Exercise, Lifting, Sick Contact, Trauma, Other Associated Symptoms: Reports: Cough, Malaise, Shortness of Breath, Weakness. Denies: Confusion, Chest Pain, Diaphoresis, Fever/Chills, Headaches, Loss of Appetite, Nausea/Vomiting, Rash, Seizure, Syncope Treatments BONSAI TENDER: Reports: Other (see below) (None.) Rectal Pain Score (Numeric/FACES): 10 - Related Data Allergies Allergy/AdvReac Type Severity Reaction Status Date / Time morphine Allergy Rash Verified 08/03/17 07:08 Home Meds: Home Meds Ascorbic Acid [Vitamin C] 500 mg PO DAILY 08/16/16 [History] Aspirin 81 mg PO BEDTIME 08/16/16 [History] Diflucan Oral 125 mcg PO DAILY PRN 08/16/16 [History] Diltiazem [Cardizem CD] 120 mg PO BID 08/16/16 [History] Flunisolide [Aerospan] 2 spray NASBOTH DAILY 08/16/16 [History] Fluticasone/Salmeterol [Advair 250-50 Diskus] 1 puff INH BID 08/16/16 [History] Folic Acid 800 mcg PO DAILY 08/16/16 [History] Furosemide [Lasix] 20 mg PO BID 08/16/16 [History] Multivitamin [Multivitamins] 1 tab PO DAILY 08/16/16 [History] Nitroglycerin [Nitrostat] 0.4 mg SL Q5M PRN 08/16/16 [History] Omeprazole 20 mg PO DAILY 08/16/16 [History] guaiFENesin [Mucinex] 600 mg PO DAILY PRN 08/16/16 [History] Albuterol/Ipratropium [DuoNeb 3.0-0.5 MG/3 ML] 3 ml NEB QIDRT #40 neb 09/03/16 [ Rx] Docusate Sodium [Colace] 100 mg PO BID #60 cap 10/26/16 [Rx] Ferrous Sulfate 325 mg PO WITHBREAKFAST #30 tablet 10/26/16 [Rx] Digoxin 250 mcg PO ACLUNCH 06/16/17 [History] Spironolactone [Aldactone] 50 mg PO DAILY #30 tablet 06/21/17 [Rx] Magnesium Oxide [Magnesium] 400 mg PO DAILY #30 tablet 08/03/17 [Rx] Polyethylene Glycol 3350 [MiraLAX] 17 gm PO DAILY #1 cont 08/03/17 [Rx] predniSONE 5 mg PO DAILY 08/03/17 [History] Past Medical History HEENT History: Reports: Cataract Other HEENT History: 2015. Cardiovascular History: Reports: Afib, Aneurysm, Arrhythmia, Bypass, CAD, Heart Failure, Hypertension, MA, SOB on Exertion, Stents Other Cardiovascular History: "aneursym in back". COPD Respiratory History: Reports: COPD, Pneumonia, Recurrent, Pulmonary Fibrosis, SOB Other Respiratory History: Wears home O2 from 3L- 5L , emphysema Gastrointestinal History: Reports: None Other Gastrointestinal History: constipation at times and takes prune juice for this, Genitourinary History: Reports: Retention, Urinary Musculoskeletal History: Reports: Arthritis, Back Pain, Chronic Other Musculoskeletal History: started pt last week for left shoulder soreness. history of carpal tunnel surgery Neurological History: Reports: TIA Psychiatric History: Reports: None Endocrine/Metabolic History: Reports: None Hematologic History: Reports: None Oncologic (Cancer) History: Reports: None Dermatologic History: Reports: None Other Dermatologic History: spots removed - Infectious Disease History Infectious Disease History: Reports: Chicken Pox, Scarlet Fever - Past Surgical History HEENT Surgical History: Reports: Cataract Surgery Cardiovascular Surgical History: Reports: Carotid Endarterectomy, Carotid Stents , Coronary Artery Bypass, Coronary Artery Stent Musculoskeletal Surgical History: Reports: Carpal Tunnel Social & Family History - Family History Family Medical History: Noncontributory HEENT: Reports: Glaucoma Cardiac: Reports: Hypertension, Other (See Below) Other Cardiac Family History: strokes and heart attacks GI: Reports: Diverticulitis OBGYN: Reports: None Musculoskeletal: Reports: Arthritis Neurological: Reports: CVA Psychiatric: Reports: Depression Endocrine/Metabolic: Reports: Diabetes, type II Oncologic: Reports: Breast Other Oncologic Family History: mother - Tobacco Use Smoking Status *Q: Former Smoker Years of Tobacco use: 50 Packs/Tins Daily: 2 Used Tobacco, but Quit: Yes Month Tobacco Last Used: Aug 2003 Second Hand Smoke Exposure: No - Caffeine Use Caffeine Use: Reports: Coffee Caffeine Use Comment: "cup or two of coffee a day" - Alcohol Use Days Per Week of Alcohol Use: 3 Number of Drinks Per Day: 1 Total Drinks Per Week: 3 - Recreational Drug Use Recreational Drug Use: No - Living Situation & Occupation Living situation: Reports: , with Spouse Occupation: Retired ED ROS GENERAL - Review of Systems Review Of Systems: See Below Constitutional: Reports: Malaise, Weakness, Fatigue, Decreased Appetite, Weight Loss. Denies: Fever, Chills HEENT: Reports: No Symptoms Respiratory: Reports: Shortness of Breath, Cough (Intermittent occasional sputum ). Denies: Wheezing, Pleuritic Chest Pain Cardiovascular: Reports: Dyspnea on Exertion (Chronically), Lightheadedness. Denies: Chest Pain, Blood Pressure Problem, Claudication, Edema (Sometimes.), Orthopnea Endocrine: Reports: Fatigue GI/Abdominal: Reports: Abdominal Pain (See history of present illness), Constipation : Reports: Frequency, Other (Nocturia 3) Musculoskeletal: Reports: Neck Pain, Back Pain, Joint Pain (Knees and hips at times) Skin: Reports: Bruising (Bruises extremely easily.) Neurological: Reports: Difficulty Walking, Weakness, Change in Speech. Denies: Confusion, Dizziness, Headache, Numbness, Paresthesia, Pre-Existing Deficit, Seizure, Syncope, Tingling, Tremors, Trouble Speaking Psychiatric: Reports: No Symptoms Hematologic/Lymphatic: Reports: No Symptoms Immunologic: Reports: No Symptoms ED EXAM, GI/ABD - Physical Exam Exam: See Below Exam Limited By: No Limitations General Appearance: Alert, WD/WN, No Apparent Distress, Mild Distress ( Respiratory distress i.e. tachypnea.) Eyes: Bilateral: Normal Appearance (No jaundice) Throat/Mouth: Normal Inspection, Normal Lips, Normal Oropharynx, Other Head: Atraumatic, Normocephalic (Tongue is mildly dry) Neck: Normal Inspection, Supple, Non-Tender, Limited Range of Motion. No: Full Range of Motion, Lymphadenopathy (L), Lymphadenopathy (R) Respiratory/Chest: Respiratory Distress (Tachypnea at rest.), Rales (Mac primarily left lung base.) Cardiovascular: No Edema (1 22/m.), No Gallop, No Murmur, No Rub, Tachycardia. No: Normal Peripheral Pulses GI/Abdominal Exam: No Organomegaly (Liver edge is palpable 2 fingerbreadths below the right costal margin on inspiration), Distended (Hyperactive bowel sounds throughout the abdomen. Diffuse mild distention with tympany to percussion.), Abnormal Bowel Sounds Rectal (Males) Exam: Other (Hard stool in the rectal vault.) Back Exam: Decreased Range of Motion (Mild kyphosis thoracic spine), Other. No : CVA Tenderness (L), CVA Tenderness (R) Extremities: Other (Has wasting of musculature both lower extremities and upper extremities.). No: Pedal Edema, Slow Capillary Refill Neurological: Alert, Oriented, CN II-XII Intact, Normal Cognition. No: Normal Gait Psychiatric: Normal Affect Skin Exam: Warm, Dry, Intact, Ecchymosis (Multiple dark black to purple ecchymoses over the forearms and dorsal hands.) Course - Vital Signs Last Recorded V/S: Last Vital Signs Temp 36.4 C 08/03/17 07:13 Pulse 123 H 08/03/17 07:13 Resp 20 08/03/17 07:13 BP 149/79 H 08/03/17 07:13 Pulse Ox 95 08/03/17 07:13 - Orders/Labs/Meds Orders: Active Orders 24 hr Category Date Time Status Enema [RC] ASDIRECTED Care 08/03/17 07:49 Active Enema [RC] ASDIRECTED Care 08/03/17 09:23 Active Meds: Medications Discontinued Medications Generic Name Dose Route Start Last Admin Trade Name Freq PRN Reason Stop Dose Admin Lidocaine HCl 10 ml 08/03/17 07:59 08/03/17 08:45 Xylocaine 2% Jelly MUCMEM 08/03/17 08:00 10 ml ONETIME ONE Administration - Radiology Interpretation Free Text/Narrative:: 82-year-old male presents to the ED primarily for assessment of abdominal pain. States he has a lot of rectal pressure discomfort due to not being able to have a bowel movement for the last 4 days. Denies any bleeding per rectum. Examination reveals him to be tachypneic and tachycardic at rest. Febrile. Few rales appreciated left lung base. Benign abdominal examination with mild tympany to percussion throughout plan KUB in one view chest x-ray to be done at this time. - Re-Assessments/Exams Free Text/Narrative Re-Assessment/Exam: 08/03/17 07:53 KUB reveals increased stool primarily in the rectal vault with a large bolus of stool present. Chest x-ray is unchanged from previous with diffuse evidence of COPD and interstitial lung disease. Plan Will proceed with a Fleet enema with mineral oil to soften the stool bolus and see how we do. He may well require a soapsuds enema as well. 08/03/17 07:56 08/03/17 09:24 patient was not able to retain much of the Fleet enema. Therefore will proceed with a soapsuds enema with some hydrogen peroxide. Departure - Departure Time of Disposition: 10:27 Disposition: Home, Self-Care 01 Condition: Fair Clinical Impression: Constipation by delayed colonic transit Abdominal pain Qualifiers: Abdominal location: left lower quadrant Qualified Code(s): R10.32 - Left lower quadrant pain - Discharge Information Prescriptions: Magnesium Oxide [Magnesium] 400 mg PO DAILY #30 tablet Polyethylene Glycol 3350 [MiraLAX] 17 gm PO DAILY #1 cont Referrals: William Buchanan MD [Primary Care Provider] - Forms: ED Department Discharge Additional Instructions: Evaluation in the emergency him today in regards to issues with constipation with no good bowel movement for the last 4 days. X-ray confirmed a large bolus of stool in the rectal vault. Therefore you were treated with Fleet enema which she was unable to retain. Therefore you were given a soapsuds enema which did provide a good bowel movement. Expect her bowels to move a second time this morning as well. I would suggest discontinuing the Colace and switching to MiraLAX powder 17 g or 1 scoop daily which should prevent constipation issues in the future. Also suggest magnesium oxide 400 mg tablet once daily which will help with her bowels function and improve your magnesium level. Follow-up with Dr. Buchanan any further problems occur - My Orders Last 24 Hours: My Active Orders 08/03/17 07:49 Enema [RC] ASDIRECTED 08/03/17 09:23 Enema [RC] ASDIRECTED - Assessment/Plan Last 24 Hours: My Active Orders 08/03/17 07:49 Enema [RC] ASDIRECTED 08/03/17 09:23 Enema [RC] ASDIRECTED
[2017-08-03] MEDS ORDERED: Lidocaine 2% Jelly 10 ML Urojet MUCMEM ONE (07:59)
--- NOTE | 2017-08-03 08:30 | CR ---
Abdomen: Supine view of the abdomen was obtained. Comparison: No prior abdominal x-ray. Scattered degenerative spurring is seen within the spine. Bowel gas pattern appears normal. Mild vascular calcification is seen. Mild degenerative change is noted within both hips. Impression: 1. Incidental findings. Diagnostic code #2
--- NOTE | 2017-08-03 08:30 | CR ---
Chest: AP view of the chest was obtained. Comparison: Prior portable chest x-ray of 06/18/17. Heart is enlarged. Prior sternotomy is noted. Tortuous thoracic aorta is seen. Increased lung markings are seen on both sides of the chest which appear to be fairly stable felt compatible with scarring and fibrosis. No acute pulmonary densities are appreciated. Bony structures are osteopenic. Impression: 1. Findings as noted above. Nothing acute is definitely seen. Diagnostic code #3
[2017-08-03] MEDS ORDERED: Magnesium Citrate Solution 296 ML Bottle PO ONE (10:47)
== END 2017-08-03 14:45 | disposition home or self-care (01) ==
LOC: JD.ED 06:53
DX: K59.01 Slow transit constipation (principal); Z88.5 Allergy status to narcotic agent; Z79.82 Long term (current) use of aspirin; Z79.899 Other long term (current) drug therapy; Z87.891 Personal history of nicotine dependence
CPT/HCPCS: 51701; 51798; 71010; 74000; 99284; A9270